=== PATIENT | female | born 1955 | race Caucasian/White ===

== ENCOUNTER 2018-11-08 01:20 | Inpatient (IN) | payer OTHER, MEDICARE ==
[~2018-11-08] VITALS: Ht 167.6 cm; Wt 106.6 kg
[2018-11-08] VITALS (8 sets, daily range): BP systolic 94–188; BP diastolic 45–85
--- NOTE | 2018-11-08 01:20 | NUR ---
BIBA FOR C/O ABD PAIN X 3 DAYS WITH PAIN 8/10 AND ABD DISTENTION WITH N/V. PT HAS AVELAR CATH IN PLACE UPON ARRIVAL TO ED WITH NO OUTPUT. PT ALSO HAD COLOSTOMY BAG. RT CHEST DOUBLE LUMEN PICC LINE. LABS DRAWN FROM RED LUMEN. NO BLOOD RETURN NOTED FROM PURPLE LUMEN. REDNESS NOTED TO COCCYX UPON ARRIVAL TO ED, DRESSING IN PLACE. ORAL TEMP 102. 8 AND RECTAL TEMP 101.4. LUNGS CLEAR BILAT, SATS 90%, PT PLACED ON 2 LITERS OXYGEN.
--- NOTE | 2018-11-08 01:20 | NUR ---
PT ABHISHEK BLS. TAKEN TO BED 10
[2018-11-08] MEDS ORDERED: ONDANSETRON 4 MG/2 ML VIAL IVP ONE (01:30)
[2018-11-08] MEDS ORDERED: NACL 0.9% 2,000 ML IV ONE (01:30)
[2018-11-08] MEDS ORDERED: MORPHINE SULFATE 4 MG/ML SYR IVP ONE ×2 (01:30→03:30)
--- NOTE | 2018-11-08 01:45 | NUR ---
# 16 FR Rodriguez catheter with 10 ml utilizing sterile technique. Immediate return of 2 ml yellow urine noted. Bedside drainage bag placed below level of bladder. Pt tolerated procedure well.
[2018-11-08 01:48] LABS: BASOPHILS # (AUTO) 0.1 K/uL (0.00-0.22); BASOPHILS % (AUTO) 0.7 % (0.0-2.0); EOSINOPHILS % (AUTO) 0.2 % (0.0-4.0); HEMATOCRIT 31.9 % (36-48); HEMOGLOBIN 9.7 g/dL (12.0-16.0); LYMPHOCYTES # (AUTO) 1.3 K/uL (2.5-16.5); LYMPHOCYTES % (AUTO) 9.4 % (20.5-51.1); MEAN CORPUSCULAR HEMOGLOBIN 21 pg (27-31); MEAN CORPUSCULAR HGB CONC 30 g/dL (33-37); MEAN CORPUSCULAR VOLUME 70.4 fL (80-94); MONOCYTES # (AUTO) 1.1 K/uL (0.8-1.0); MONOCYTES % (AUTO) 7.8 % (1.7-9.3); NEUTROPHILS # (AUTO) 11.5 K/uL (1.8-7.7); NEUTROPHILS % (AUTO) 81.9 % (42.2-75.2); PLATELET COUNT (AUTO) 328 K/uL (140-450); RED BLOOD CELL COUNT(AUTO) 4.53 MIL/uL (4.20-5.40); RED CELL DISTRIBUTION WIDTH 16.1 % (11.6-13.7)
[2018-11-08 02:02] LABS: ANION GAP 9.4 (8-16); POTASSIUM 3.4 mmol/L (3.5-5.1)
--- NOTE | 2018-11-08 02:04 | NUR ---
PT TAKEN TO CT
[2018-11-08 02:08] LABS: ALBUMIN 3.2 g/dL (3.4-5.0); PROTHROMBIN TIME 10.1 secs (10.8-13.4); TOTAL BILIRUBIN 0.6 mg/dL (0.0-1.0)
--- NOTE | 2018-11-08 02:41 | NUR ---
RESTING COMFORTABLY. NO ACUTE DISTRESS NOTED. VSS.
[2018-11-08] MEDS ORDERED: PIPERACILLIN/TAZOBACTAM 3.375 GM in DEXTROSE 5% 50 ML IV ONE (02:50)
[2018-11-08] MEDS ORDERED: PIPERACILLIN/TAZOBACTAM 3.375 GM VIAL IV ONE (03:07)
[2018-11-08] MEDS ORDERED: ACETAMINOPHEN 325 MG TAB PO PRN (03:30)
[2018-11-08] MEDS ORDERED: NACL 0.9% 1,000 ML IV ONE ×2 (03:30→04:00)
[2018-11-08] MEDS ORDERED: HYDROcodone/APAP 7.5/325 MG 1 TAB PO PRN (03:30)
[2018-11-08] MEDS ORDERED: DOCUSATE SODIUM 100 MG GELCAP PO PRN (03:30)
[2018-11-08] MEDS ORDERED: MORPHINE SULFATE 2 MG/ML SYR IVP PRN (03:30)
[2018-11-08] MEDS ORDERED: MORPHINE SULFATE 4 MG/ML SYR ONE (03:34)
--- NOTE | 2018-11-08 03:40 | NUR ---
# 16 FR NG tube placed to right nare. Placement checked by auscultation of instilled air into stomach and aspiration of gastric contents. Tubing taped in place to prevent dislodging. Patient tolerated well.
--- NOTE | 2018-11-08 03:56 | NUR ---
X-Ray at bedside.
[2018-11-08] MEDS ORDERED: DEXT 5% / NACL 0.9% 500 ML IV SCH (04:00)
[2018-11-08 04:01] LABS: APPEARANCE,URINE CLOUDY (CLEAR); BILIRUBIN,URINE NEGATIVE (NEGATIVE); BLOOD, URINE 2+ (NEGATIVE); COLOR,URINE YELLOW (YELLOW); LEUKOCYTE ESTERASE ,URINE 1+ (NEGATIVE); NITRITE, URINE POSITIVE (NEGATIVE); UGLUCOSE NEGATIVE (NEGATIVE)
[2018-11-08 04:07] LABS: RBC,URINE TOO NUMEROUS TO COUN /HPF (0-5); WBC,URINE TOO MANY TO COUNT /HPF (0-5)
--- NOTE | 2018-11-08 04:09 | NUR ---
PT ARRIVED AT UNIT VIA GURNEY, RECEIVED BEDSIDE REPORT FROM ER NURSE, CENTRAL LINE TO R UPPER CHEST DOUBLE LUMEN, PATENT INTACT, GOOD BLOOD RETURN, PT ON 3LPM O2 VIA NC, NO SOB NOTED, NG TUBE IN PLACE,AVELAR CATH IN PLACE DRAINING YELLOW URINE, COLOSTOMY BAG IN PLACE DRAINING LIGHT BROWN LIQUID FECES, V/S TAKEN BP 188/85 HR 143, NOTIFIED DR. GAMING REGARDING PT BP, STATED UNDERSTANDING AND WILL ORDER MEDICATION, MRSA SWAB TAKEN, INITIAL ASSESSMENT DONE, ALL SAFETY PRECAUTION MET, CALL LIGHT WITHIN REACH, WILL CONTINUE TO MONITOR.
[2018-11-08] MEDS ORDERED: DEXT31GE2 PO (04:13)
[2018-11-08] MEDS ORDERED: OXCA150T2 PO (04:13)
[2018-11-08] MEDS ORDERED: D50SYR IV (04:13)
[2018-11-08] MEDS ORDERED: LURA80TA PO (04:13)
[2018-11-08] MEDS ORDERED: GABA400C PO (04:13)
[2018-11-08] MEDS ORDERED: ALBU3SOL83 IH (04:13)
[2018-11-08] MEDS ORDERED: GLU1I IM (04:13)
[2018-11-08] MEDS ORDERED: PUL.5N NEB (04:13)
[2018-11-08] MEDS ORDERED: NA P133N1 RC (04:13)
[2018-11-08] MEDS ORDERED: BISA-213 RC (04:13)
[2018-11-08] MEDS ORDERED: MSCON15 PO (04:13)
[2018-11-08] MEDS ORDERED: DOCU-299 PO (04:13)
[2018-11-08] MEDS ORDERED: ACET-2619 PO (04:13)
[2018-11-08] MEDS ORDERED: ACET-5636 PO (04:13)
[2018-11-08] MEDS ORDERED: SLIDE SUBQ (04:13)
[2018-11-08] MEDS ORDERED: ASCO500T45 PO (04:13)
[2018-11-08] MEDS ORDERED: LACT25CA PO (04:13)
[2018-11-08] MEDS ORDERED: MAGN400S60 PO (04:13)
[2018-11-08] MEDS ORDERED: CRAN450C PO (04:13)
--- NOTE | 2018-11-08 04:15 | NUR ---
Patient will be admitted to care of DR. STRONG. Admited to MS. Will go to room 111B. Belongings list completed. Report to BRITTANY AUSTIN.
[2018-11-08] MEDS ORDERED: INSULIN LISPRO SLIDING SCALE 100 UNITS/ML VIAL SUBQ PRN (04:20)
[2018-11-08] MEDS ORDERED: MAGNESIUM HYDROXIDE 2400 MG/30 ML UDC PO PRN (04:20)
[2018-11-08] MEDS ORDERED: DEXTROSE 50% 50 ML SYR IVP PRN (04:20)
[2018-11-08] MEDS ORDERED: hydrALAZINE 20 MG/ML VIAL IVP ONE (04:55)
[2018-11-08] MEDS: KETOROLAC 15 MG/ML VIAL IVP PRN ×3 (05:25→21:47)
--- NOTE | 2018-11-08 05:25 | NUR ---
PT C/O PAIN 05/15, PAIN MEDICATION ADMINISTERED, MEDICATION HYDRALAZINE ALSO ADMINISTERED, PT TOLERATED WELL, NO DISTRESS NOTED, CALL LIGHT WITHIN REACH, WILL CONTINUE TO MONITOR.
--- NOTE | 2018-11-08 06:10 | NUR ---
RECHECKED PT BP, 128/56 HR 124, PT RESTING, NO DISTRESS NOTED, CALL LIGHT WITHIN REACH, WILL CONTINUE TO MONITOR.
[2018-11-08] MEDS: BLOOD GLUCOSE MONITORING 1 DEV DEV FS SCH ×4 (06:45→21:46)
[2018-11-08] MEDS ORDERED: LORazepam 2 MG/ML VIAL IVP PRN (06:50)
[2018-11-08] MEDS ORDERED: ACETAMINOPHEN 325 MG SUPP RC PRN (06:55)
--- NOTE | 2018-11-08 07:25 | NUR ---
ENDORSED PT TO DAY SHIFT NURSE FLORA RN FOR CONTINUOUS OF CARE.
--- NOTE | 2018-11-08 07:26 | NUR ---
RECEIVED BEDSIDE REPORT FROM IT TECHNICAL SUPPORT SPECIALIST NURSE. PATIENT IS AWAKE, ALERT AND ORIENTEDX4, BUT HAS MOMENTS OF CONFUSION/FORGETFULNESS. SHE IS BEDBOUND W L SIDE WEAKNESS. HX STROKE. FALL RISK PROTOCOL IN PLACE. SACRAL REDNESS. SKIN IS INTACT. RU CHEST CENTRAL LINE DOUBLE LUMEN, INFUSING D5NS AT 120. CLEAN,DRY AND INTACT. PATIENT IS INCONTINENT. COLOSTOMY BAG AND AVELAR IN PLACE. CLEAN AND PATENT. NO SIGNS OF DISTRESS ON 3L NC. NG TUBE IN PLACE. NO SUCTION AT THIS TIME D/T WAITING FOR CHEST XRAY FOR PLACEMENT. BED IN LOW POSITION. CALL LIGHT WITHIN REACH. NPO AT THIS TIME. SIGNS POSTED
[2018-11-08] MEDS: DEXT 5% /NACL 0.9% 1,000 ML IV SCH ×2 (07:49→16:05)
--- NOTE | 2018-11-08 08:26 | NUR ---
PATIENT HAS BEEN SCREENED AND CATEGORIZED HIGH NUTRITION RISK. PATIENT WILL BE SEEN WITHIN 1-2 DAYS OF ADMISSION. 11/08/18-11/09/[address]
[2018-11-08] MEDS ORDERED: ACETAMINOPHEN 650 MG SUPP RC ONE ×2 (08:40→15:13)
[2018-11-08] MEDS ORDERED: MORPHINE SULFATE 2 MG/ML SYR ONE ×2 (08:46→12:26)
[2018-11-08] MEDS: MORPHINE SULFATE 2 MG/ML SYR IVP SCH ×4 (08:47→19:45)
[2018-11-08] MEDS: levETIRAcetam 500 MG in NACL 0.9% 100 ML IV SCH ×2 (08:49→21:50)
[2018-11-08] MEDS ORDERED: OXcarbazepine 150 MG TAB PO SCH (09:00)
[2018-11-08] MEDS ORDERED: DOCUSATE SODIUM 100 MG GELCAP PO SCH (09:00)
[2018-11-08] MEDS ORDERED: GABAPENTIN 100 MG CAP PO SCH (09:00)
[2018-11-08] MEDS ORDERED: LACTOBACILLUS RHAMNOSUS GG 1 EACH CAP PO SCH (09:00)
[2018-11-08] MEDS: SODIUM PHOSPHATE 118 ML ENEM RC SCH (09:07)
--- NOTE | 2018-11-08 09:27 | NUR ---
ADMINISTERED MEDS. DR BARROS SAID TO GIVE MORPHINE STILL EVEN THOUGH B/P IS 94/45. SHE SAID SHE DOES NOT WANT THE PATIENT TO GO THROUGH WITHDRAWAL BECAUSE SHE IS ON PAIN MEDS AT HOME. WILL CONTINUE TO MONITOR THE PATIENT.
--- NOTE | 2018-11-08 11:30 | NUR ---
COLOSTOMY BAG CHANGED BY WOUND CARE NURSE. PATIENT TOLERATED WELL
--- NOTE | 2018-11-08 11:30 | NUR ---
WOUND CARE EVALUATION NOT: PER DR. BARROS REQUEST SKIN ASSESSMENT DONE. SKIN INTACT NO REDNESS OBSERVED. PER PRIMARY RN FLEET ENEMA WAS GIVEN EARLY PER RECTAL. SMALL AMOUNT OF TARRY COLOR LIQUID STOOL OUT PUT THRU COLOSTOMY. COLOSTOMY TO LLQ ABDOMINAL AREA, RETRACTED STOMA NOTICE, STOMA SIZE 1/2" WITH OPENING TO 3O'CLOCK DIRECTION AND SMALL AMOUNT OF BLEEDING WHILE Q-TIP INSERTED ABOUT 0.5CM TO THE STOMA OPENING AREA. SIMRAN STOMA SKIN IRRITATION NOTICE REDNESS. 2PIECE COLOSTOMY BAG CHANGED,PT TOLERATE PROCEDURES WELL. RECOMMENDATION -SURGEON TO CONSULT -COLOSTOMY CARE PER PROTOCOL AND DURING CARE PLEASE FOLLOW SKIN CARE INSTRUCTION BELOW: -APPLY SKIN PREP TO SIMRAN-OSTOMY SKIN -USE AN ANGELA SEAL AROUND OSTOMY, STOMA 1/2 ", USE 2- PIECES OSTOMY DEVICES, APPLY WAFER TO OSTOMY AND ATTACHED POUCH TO WAFER., CHANGE WAFER WEEKLY. EMPTY AND RINSE POUCH WHEN IT IS 2/3 FULL. PRIMARY RN NOTIFY ALL ABOVE INFORMATION.
[2018-11-08] MEDS ORDERED: KCL 20 MEQ/WATER INJ PREMIX 200 ML IV SCH (12:00)
[2018-11-08] MEDS ORDERED: KCL 20 MEQ/WATER INJ PREMIX 100 ML IV ONE (12:28)
[2018-11-08] MEDS ORDERED: KETOROLAC 15 MG/ML VIAL ONE (12:30)
--- NOTE | 2018-11-08 12:32 | NUR ---
ADMINISTERED MEDS. DR BARROS SAID IF FEVER GOES BACK UP TO GIVE TORADOL. TORADOL GIVEN. PATIENT TOLERATED WELL.
--- NOTE | 2018-11-08 14:17 | NUR ---
11/08/18 RD INITIAL ASSESSMENT COMPLETED PLEASE REFER TO NUTRITION ASSESSMENT UNDER CARE ACTIVITY FOR ESTIMATED NUTRITIONAL NEEDS. 1. IF NPO CONDITION RESOLVED PER [facility] PROVIDED DIABETES EDUCATION MATERIAL 3. RD TO FOLLOW-UP 2-3 DAYS, HIGH RISK ABDIRASHID MACK RD
--- NOTE | 2018-11-08 14:33 | NUR ---
PATIENT DOES NOT BELIEVE I GAVE HER THE MORPHINE JESSICA AND THE TORADOL. SHE WANTS TO TALK TO THE DOCTOR. DR BARROS CAME IN TO TALK TO PATIENT AND PATIENT APOLOGIZED TO ME, SHE SAID SHE DOES NOT REMEMBER GETTING IT. I TOLD HER IT WAS OK, NO PROBLEM
[2018-11-08] MEDS: metroNIDAZOLE 500 MG/NS PREMIX 100 ML IV SCH ×2 (14:46→21:49)
[2018-11-08] MEDS ORDERED: metroNIDAZOLE 500 MG/NS PREMIX 100 ML IV ONE (14:53)
[2018-11-08] MEDS: ACETAMINOPHEN 650 MG SUPP RC PRN ×2 (15:07→22:16)
--- NOTE | 2018-11-08 15:14 | NUR ---
PATIENT HAS A FEVER 101. CHILLS. GAVE PATIENT PRN SUPP TYLENOL. PATIENT TOLERATED WELL. BLANKETS REMOVED FROM PATIENT
[2018-11-08] MEDS: ONDANSETRON 4 MG/2 ML VIAL IM/IVP PRN (16:36)
--- NOTE | 2018-11-08 16:38 | NUR ---
ADMINISTERED PRN NAUSEA MED. DR BARROS AWARE OF FEVER 101.[address] COOLING MEASURES. ICE PACKS PLACED ON PATIENT. NO BLANKETS. ROOM TEMP COOLER
[2018-11-08 17:12] LABS: CHOL/HDL RATIO 3.7 (1-4.5); MAGNESIUM 1.9 mg/dL (1.8-2.4); PHOSPHORUS 3.8 mg/dL (2.5-4.9); THYROID STIMULATING HORMONE 4.85 uIU/mL (0.34-3.74)
--- NOTE | 2018-11-08 17:30 | NUR ---
HAD TO CHANGE COLOSTOMY BAG TWO TIMES. BOTH BAGS EXPLODED AND NEW BAG NEEDED. PATIENT CLEANED UP
--- NOTE | 2018-11-08 18:45 | NUR ---
TEMP IS 99.9
--- NOTE | 2018-11-08 19:10 | NUR ---
GAVE BEDSIDE REPORT TO BELL STAFF NURSE. PATIENT ENDORSED IN STABLE CONDITION
--- NOTE | 2018-11-08 19:11 | NUR ---
RECEIVED BEDSIDE REPORT FROM DAY SHIFT NURSE FLORA RN, PT STABLE, NO DISTRESS NOTED, CENTRAL LINE DOUBLE LUMEN TO THE R UPPER CHEST, PATENT, INTACT, INFUSING D5NS @ 120ML/HR, INFUSING WELL, PT ON 3LPM O2 VIA NC, NG TUBE IN PLACE, POSITIVE PLACEMENT, OSTOMY BAG IN PLACE DRAINING BROWN LIQUID STOOL, AVELAR CATH IN PLACE DRAINING YELLOW URINE, PT STATED HAVING PAIN 9/10, WILL MEDICATE WITH SCHEDULED PAIN MEDICATION. INITIAL ASSESSMENT DONE, ALL SAFETY PRECAUTION MET, CALL LIGHT WITHIN REACH, WILL CONTINUE TO MONITOR.
--- NOTE | 2018-11-08 20:09 | NUR ---
PATIENT STATED SHE DOES NOT WANT TO DO INCENTIVE SPIROMETER
--- NOTE | 2018-11-08 20:10 | NUR ---
PT CURRENT TEMP 100.1, COOLING MEASURES IN PLACE, WILL CONTINUE TO MONITOR.
--- NOTE | 2018-11-08 21:47 | NUR ---
PT STATED PAIN IS COMING BACK 04/14, PAIN MEDICATION TORADOL ADMINISTERED, PT TOLERATED WELL, NO DISTRESS NOTED, CALL LIGHT WITHIN REACH, WILL CONTINUE TO MONITOR.
--- NOTE | 2018-11-08 21:50 | NUR ---
DUE MEDICATION ADMINISTERED, PT TOLERATED WELL, NO DISTRESS NOTED, CALL LIGHT WITHIN REACH, WILL CONTINUE TO MONITOR.
--- NOTE | 2018-11-08 22:16 | NUR ---
PT TEMPERATURE CURRENTLY 101.4, TYLENOL SUPPOSITORY ADMINISTERED, PT TOLERATED WELL, WILL CONTINUE TO MONITOR TEMPERATURE.
--- NOTE | 2018-11-08 23:10 | NUR ---
CHECKED PT TEMPERATURE 99.7, WILL CONTINUE TO MONITOR AND ADMINISTER COOLING MEASURES. PT RESTING, NO DISTRESS NOTED, CALL LIGHT WITHIN REACH, WILL CONTINUE TO MONITOR.
[2018-11-09] VITALS: BP 104/53
[2018-11-09] MEDS: MORPHINE SULFATE 2 MG/ML SYR IVP SCH ×6 (00:33→16:14)
--- NOTE | 2018-11-09 00:33 | NUR ---
CHECKED ON PT, DUE MEDICATION ADMINISTERED, V/S CHECKED, WITHIN PT BASELINE, CALL LIGHT WITHIN REACH, WILL CONTINUE TO MONITOR.
--- NOTE | 2018-11-09 03:42 | NUR ---
CHECKED ON PT, V/S TAKEN, WITHIN PT BASELINE, MEDICATION ADMINISTERED, PT TOLERATED WELL, NO DISTRESS NOTED, CALL LIGHT WITHIN REACH, WILL CONTINUE TO MONITOR.
[2018-11-09] MEDS: DEXT 5% /NACL 0.9% 1,000 ML IV SCH (03:49)
[2018-11-09 04:00] VITALS: BP 117/42
[2018-11-09] MEDS: ONDANSETRON 4 MG/2 ML VIAL IM/IVP PRN ×2 (04:11→21:21)
--- NOTE | 2018-11-09 04:11 | NUR ---
PT C/O NAUSEA, MEDICATION ADMINISTERED, PT TOLERATED WELL, NO DISTRESS NOTED, CALL LIGHT WITHIN REACH, WILL CONTINUE TO MONITOR.
[2018-11-09] MEDS: metroNIDAZOLE 500 MG/NS PREMIX 100 ML IV SCH ×3 (05:21→21:30)
[2018-11-09] MEDS: BLOOD GLUCOSE MONITORING 1 DEV DEV FS SCH ×4 (05:29→21:20)
[2018-11-09] MEDS: KETOROLAC 15 MG/ML VIAL IVP PRN ×3 (05:44→23:45)
--- NOTE | 2018-11-09 06:54 | NUR ---
MORPHINE ORDERED GIVEN, PT BP 108/50 HR 103, PT RESTING, NO DISTRESS NOTED, CALL LIGHT WITHIN REACH, WILL CONTINUE TO MONITOR.
[2018-11-09 06:56] LABS: BASOPHILS % (AUTO) 0.5 % (0.0-2.0); EOSINOPHILS % (AUTO) 0.3 % (0.0-4.0); HEMATOCRIT 26.2 % (36-48); HEMOGLOBIN 8.2 g/dL (12.0-16.0); LYMPHOCYTES # (AUTO) 0.5 K/uL (2.5-16.5); LYMPHOCYTES % (AUTO) 6.5 % (20.5-51.1); MEAN CORPUSCULAR HEMOGLOBIN 22 pg (27-31); MEAN CORPUSCULAR HGB CONC 31 g/dL (33-37); MONOCYTES # (AUTO) 0.9 K/uL (0.8-1.0); MONOCYTES % (AUTO) 11.1 % (1.7-9.3); NEUTROPHILS # (AUTO) 6.4 K/uL (1.8-7.7); NEUTROPHILS % (AUTO) 81.6 % (42.2-75.2); PLATELET COUNT (AUTO) 224 K/uL (140-450); RED BLOOD CELL COUNT(AUTO) 3.69 MIL/uL (4.20-5.40); WHITE BLOOD COUNT (AUTO) 7.9 K/uL (4.8-10.8)
[2018-11-09 07:25] LABS: FOLIC ACID > 20.00 ng/mL (>3.0); TRANSFERRIN 242 mg/dL (200-370)
--- NOTE | 2018-11-09 07:30 | NUR ---
ENDORSED PT TO DAY SHIFT NURSE NILSA SOTO, PT STABLE, NO DISTRESS NOTED, CALL LIGHT WITHIN REACH.
--- NOTE | 2018-11-09 07:31 | NUR ---
RECEIVED REPORT FROM THE MANAGER FOREIGN NURSE. PT IS AWAKE AND ORIENTED. PT IS ON TELE. PT IS ON NC O2 2L. NG IN PLACE. PT HAS A CENTRAL LINE ON R CHEST, DOUBLE LUMEN, D5NS AT 120ML INFUSING. PT HAS A AVELAR CATH AND A COLOSTOMY. V/S WITHIN NORMAL RANGE. C/O PAIN IN HER AND ABD AND BACK. SKIN IN INTACT. REDNESS ON COCCYX AND HEELS. WILL CONTINUE TO MONITOR PT.
[2018-11-09 07:39] LABS: MAGNESIUM 1.9 mg/dL (1.8-2.4); PHOSPHORUS 2.6 mg/dL (2.5-4.9)
[2018-11-09 08:00] VITALS: BP 110/46
[2018-11-09 08:10] LABS: ANION GAP 7.7 (8-16); CARBON DIOXIDE 30.3 mmol/L (21-32); CREATININE 0.8 mg/dL (0.6-1.3)
[2018-11-09] MEDS: NACL 0.9% 1,000 ML IV SCH ×2 (08:55→20:40)
[2018-11-09] MEDS: levETIRAcetam 500 MG in NACL 0.9% 100 ML IV SCH (08:56)
--- NOTE | 2018-11-09 09:59 | NUR ---
GAVE MORNING MEDS AND REMOVED NG TUBE. PT TOLERATED WELL. WILL CONTINUE TO MONITOR PT.
--- NOTE | 2018-11-09 11:08 | NUR ---
PT C/O PAIN NOT BEING RESOLVED WITH SCHEDULED MORPHINE. ADMINISTERED TORADOL. WILL REASSESS PT.
[2018-11-09] MEDS ORDERED: OXcarbazepine 150 MG TAB PO SCH (11:10)
[2018-11-09 12:00] VITALS: BP 99/60
[2018-11-09] MEDS ORDERED: KCL 20 MEQ/WATER INJ PREMIX 200 ML IV SCH (12:00)
--- NOTE | 2018-11-09 15:10 | NUR ---
PT C/O FEELING WARM. CHECKED ORAL TEMP 99.9F. STARTED COOLING MEASURES. ICE PACKS UNDER ARMS. TOOK OF BLANKET. WILL CONTINUE TO MONITOR PT.
--- NOTE | 2018-11-09 15:16 | NUR ---
CRITICAL RESULTS. POSITIVE BLOOD CULTURE. GRAM - RODS. NOTIFIED.
[2018-11-09 16:00] VITALS: BP 106/67
--- NOTE | 2018-11-09 16:00 | NUR ---
V/S WITHIN NORMAL RANGE. TEMP 99.4F. COOLING MEASURES EFFECTIVE. PT HAS NO COMPLAINTS AT THIS TIME.
[2018-11-09] MEDS: MORPHINE SULFATE 2 MG/ML SYR IVP PRN (19:23)
--- NOTE | 2018-11-09 19:30 | NUR ---
RECEIVED ENDORSEMENT FROM NILSA SOTO DAYSHIFT NURSE AT BEDSIDE FOR CONTINUITY OF CARE, PT IN STABLE CONDITION.
--- NOTE | 2018-11-09 19:30 | NUR ---
ENDORSED PT TO THE LEARNING AND DEVELOPMENT INTERN NURSE AT BEDSIDE. PT IN STABLE CONDITION.
[2018-11-09 20:00] VITALS: BP 130/55
--- NOTE | 2018-11-09 20:00 | NUR ---
PT IN BED WITH ALL FALLS PRECAUTIONS IN PLACE, AND HOB UP 45%. V/S FOLLOWS T 101.1 P 103 R 20 B/P 130/55 02 100% ON 3 LITERS VIA N/C. CENTRAL LINE ON RIGHT SHOULDER INTACT AND RUNNING N/S AT 80MLS/HR. PT HAS ORDERED FOR TYLENOL SUPPOSITORY, PT DOESN'T WANT TYLENOL TO BE GIVEN VIA SUPPOSITORY. WILL SPEAK TO RESIDENTS TO CHANGE ORDER TO PO TYLENOL.
--- NOTE | 2018-11-09 20:30 | NUR ---
PT OSTOMY BAG WAS CHANGED AND DRAINED 400MLS OF LIQUID BROWN FECES DUE TO BAG LEAKING. NEW OSTOMY BAG PROVIDED. AVELAR CHAT IN PLACE AND DRAINING ADAMARIS YELLOW URINE. CENTRAL LINE INTACT AND FLUIDS OF N/S RUNNING AT 80MLS/HR.
[2018-11-09] MEDS ORDERED: ACETAMINOPHEN 325 MG TAB PO PRN (21:10)
[2018-11-09] MEDS: DOCUSATE SODIUM 100 MG GELCAP PO SCH (21:26)
[2018-11-09] MEDS: OXcarbazepine 150 MG TAB PO SCH (21:27)
[2018-11-09] MEDS: MORPHINE TAB ER 15 MG TABER PO SCH (21:29)
--- NOTE | 2018-11-09 21:30 | NUR ---
PT C/ O PAIN IN ABDOMEN GIVEN SCHEDULED MS CONTIN 15MG EXTENDED RELEASE. PT DID C/O OF FEELING NAUSEA. PT GIVEN DISPOSABLE BAG FOR VOMITING. PT VOMITED X1 200MLS OF BILE LIKE FLUID. PT GIVEN IVP ZOFRAN. WILL MONITOR FOR EFFECT.
--- NOTE | 2018-11-09 23:50 | NUR ---
PT AWAKE AND C/O OF MODERATE PAIN, GIVEN 1 IVP OF TORADOL TO RELIEVE MODERATE PAIN IN ABDOMEN. WILL MONITOR FOR PAIN CONTROL.
[2018-11-09] MEDS ORDERED: PROMETHAZINE 25 MG TAB PO PRN (23:55)
[2018-11-10] VITALS: BP 148/79
--- NOTE | 2018-11-10 00:30 | NUR ---
PT C/O OF VOMITING AGAIN. PT VOMITED OUT ANOTHER 250MLS OF BILE LIKE FLUID. INFORMED DR. ALANIS RESIDENT THAT PT AGAIN VOMITED AND HE GAVE A NEW ORDER FOR PHENERGAN 12.5MG. GIVEN TO PT TO HELP PT STOP VOMITING.
[2018-11-10] MEDS: ONDANSETRON 4 MG/2 ML VIAL IM/IVP PRN ×6 (02:39→20:48)
[2018-11-10] MEDS: MORPHINE SULFATE 2 MG/ML SYR IVP PRN ×4 (02:51→16:47)
--- NOTE | 2018-11-10 03:04 | NUR ---
PT SITTING UP IN BED WITH C/O OF NAUSEA AND SEVERE ABD PAIN. PT GIVEN ZOFRAN IVP REQUESTED. PT SAID THAT SINCE SHE THREW UP HER PAIN PILL CAN SHE HAVE ANOTHER. EXPLAINED TO PT THAT NO PILL WAS FOUND IN VOMITUS, HOWEVER SHE DOES HAVE PRN ORDER FOR MORPHINE WHICH WAS GIVEN UPON REQUEST. WILL MONITOR FOR EFFECT.
--- NOTE | 2018-11-10 03:29 | NUR ---
PT THREW UP ANOTHER 300MLS OF BILE LIKE VOMITUS.
--- NOTE | 2018-11-10 03:32 | NUR ---
DR. ALANIS MADE AWARE OF PT VOMITING . AWAITING NEW ORDERE
[2018-11-10] MEDS ORDERED: METOCLOPRAMIDE 10 MG/2 ML INJ VIAL IVP PRN (03:35)
[2018-11-10 04:00] VITALS: BP 153/93
[2018-11-10] MEDS: metroNIDAZOLE 500 MG/NS PREMIX 100 ML IV SCH ×2 (04:53→12:32)
--- NOTE | 2018-11-10 05:10 | NUR ---
PT IN BED STILL C/O NAUSEA , HOWEVER NO NEW ORDER NOTED REGARDING VOMITING. PT LAST VOMIT WAS 100MLS. V/S FOLLOWS T 97.2 P 111 R 18 B/P 153/93 02 98 ON ROOM AIR.
--- NOTE | 2018-11-10 05:12 | NUR ---
MARRY HUNG ORDERED. PT TURNED AND DRESSING INTACT.
[2018-11-10] MEDS ORDERED: oxyCODONE/APAP 5/325 MG 1 TAB TAB PO PRN (06:00)
[2018-11-10] MEDS ORDERED: DEXT 5% / NACL 0.45% 1,000 ML IV SCH (06:20)
[2018-11-10] MEDS: BLOOD GLUCOSE MONITORING 1 DEV DEV FS SCH ×4 (06:47→21:00)
[2018-11-10] MEDS ORDERED: METOCLOPRAMIDE 10 MG TAB PO SCH (07:30)
--- NOTE | 2018-11-10 07:30 | NUR ---
REPORT GIVEN TO PETER SOTO DAYSHIFT NURSE AT BEDSIDE FOR CONTINUITY OF CARE, PT IN STABLE CONDITION.
--- NOTE | 2018-11-10 07:31 | NUR ---
RECEIVED BEDSIDE REPORT FROM BRITTANY ORTEGA. PATIENT AAOX4. PATIENT ON ROOM AIR, NO DISTRESS NOTED. SKIN INTACT. PATIENT ON TELE MONITOR AND STANDARD PRECAUTIONS. CENTRAL LINE ON R INFUSING NS AT 80. CENTRAL LINE INTACT AND PATENT. PATIENT WITH AVELAR CATHETER AND COLOSTOMY BAG. FALL RISK PROTOCOL IN PLACE. BED IN LOW POSITION, CALL LIGHT WITHIN REACH, SIDE RAILS X2 UP. WILL CONTINUE TO MONITOR.
[2018-11-10 07:51] LABS: BASOPHILS % (AUTO) 0.4 % (0.0-2.0); HEMOGLOBIN 8.9 g/dL (12.0-16.0); LYMPHOCYTES # (AUTO) 1.1 K/uL (2.5-16.5); MEAN CORPUSCULAR HEMOGLOBIN 22 pg (27-31); MEAN CORPUSCULAR HGB CONC 31 g/dL (33-37); MEAN CORPUSCULAR VOLUME 70.9 fL (80-94); MONOCYTES # (AUTO) 0.5 K/uL (0.8-1.0); MONOCYTES % (AUTO) 6.4 % (1.7-9.3); NEUTROPHILS # (AUTO) 6.6 K/uL (1.8-7.7); NEUTROPHILS % (AUTO) 80.2 % (42.2-75.2); PLATELET COUNT (AUTO) 271 K/uL (140-450); RED BLOOD CELL COUNT(AUTO) 4.09 MIL/uL (4.20-5.40); RED CELL DISTRIBUTION WIDTH 16.4 % (11.6-13.7); WHITE BLOOD COUNT (AUTO) 8.2 K/uL (4.8-10.8)
[2018-11-10 07:59] LABS: CREATININE 0.8 mg/dL (0.6-1.3)
[2018-11-10 08:00] VITALS: BP 162/90
[2018-11-10 08:03] LABS: MAGNESIUM 1.9 mg/dL (1.8-2.4); PHOSPHORUS 2.7 mg/dL (2.5-4.9)
[2018-11-10] MEDS: MORPHINE TAB ER 15 MG TABER PO SCH ×2 (08:08→20:46)
[2018-11-10] MEDS: FERROUS SULFATE 325 MG TABEC PO SCH (08:09)
[2018-11-10] MEDS: ASCORBIC ACID 500 MG TAB PO SCH (08:10)
[2018-11-10] MEDS: OXcarbazepine 150 MG TAB PO SCH ×2 (08:11→20:46)
[2018-11-10] MEDS: DOCUSATE SODIUM 100 MG GELCAP PO SCH ×2 (08:11→20:46)
[2018-11-10] MEDS: LACTOBACILLUS RHAMNOSUS GG 1 EACH CAP PO SCH (08:11)
--- NOTE | 2018-11-10 08:30 | NUR ---
P.T. NOTES PATIENT REFUSED TO GET UP AND ATTEMPT TO WALK DUE TO COMPLAINTS OF NOT FEELING WELL AND WAS THROWING UP WHEN SEEN. HER NURSE CURLY WAS MADE AWARE OF HER REFUSAL. PLAN: WE'LL FOLLOW UP AGAIN ON NEXT P.T. SCHEDULE IF SHE REMAINS IN THIS HOSPITAL.
[2018-11-10] MEDS: SODIUM PHOSPHATE 118 ML ENEM RC SCH (09:00)
--- NOTE | 2018-11-10 09:30 | NUR ---
ADMINISTERED SCHEDULED MEDS. PATIENT TOLERATED WELL. WILL CONTINUE TO MONITOR.
[2018-11-10] MEDS: NACL 0.9% 1,000 ML IV SCH ×2 (09:41→22:07)
[2018-11-10] MEDS ORDERED: POTASSIUM CHLORIDE 40 MEQ, LIDOCAINE 1% 25 MG in NACL 0.9% 250 ML IV SCH (11:00)
[2018-11-10] MEDS ORDERED: SIMETHICONE 80 MG TAB.CHEW PO PRN (11:35)
[2018-11-10 12:00] VITALS: BP 152/87
--- NOTE | 2018-11-10 12:22 | NUR ---
CALLED [facility] AND SPOKE WITH KADE ABOUT TRANSPORT BACK TO SNF OVER THE WEEKEND. THEY DO NOT GIVE AUTH UNTIL DISCHARGE DATE. SHE SAID TO CALL OVER THE WEEKEND, FOR AUTH. SHE ALSO SAID THAT IF PATIENT HAS MEDICARE PART B, TRANSPORT SHOULD GO THROUGH MEDICARE PART B.
[2018-11-10] MEDS: METOCLOPRAMIDE 10 MG/2 ML INJ VIAL IVP SCH ×2 (12:32→18:30)
[2018-11-10] MEDS: GABAPENTIN 600 MG, GABAPENTIN 200 MG PO SCH ×4 (13:00→16:48)
[2018-11-10] MEDS ORDERED: GABAPENTIN 100 MG CAP PO SCH (13:00)
--- NOTE | 2018-11-10 13:00 | NUR ---
CENTRAL LINE REMOVED. PATIENT IN STABLE CONDITION. WILL CONTINUE TO MONITOR.
--- NOTE | 2018-11-10 14:41 | NUR ---
ADMINISTERED ZOFRAN PRN FOR N/V. PATIENT TOLERATED WELL. WILL CONTINUE TO MONITOR.
[2018-11-10 16:00] VITALS: BP 156/79
--- NOTE | 2018-11-10 17:24 | NUR ---
FAXED INFORMATION TO [facility] [phone].
--- NOTE | 2018-11-10 18:41 | NUR ---
ADMINISTERED SCHEDULED MEDS. PATIENT TOLERATED WELL. WILL CONTINUE TO MONITOR.
--- NOTE | 2018-11-10 19:05 | NUR ---
RECEIVED REPORT FROM JOCELYN SOTO DAYSHIFT NURSE AT BEDSIDE FOR CONTINUITY OF CARE, PT IN STABLE CONDITION.
--- NOTE | 2018-11-10 19:05 | NUR ---
GAVE BEDSIDE REPORT TO BRITTANY ORTEGA. PATIENT ENDORSED IN STABLE CONDITION.
[2018-11-10 20:00] VITALS: BP 151/90
--- NOTE | 2018-11-10 20:00 | NUR ---
PT IN BED WITH ALL FALLS PRECAUTIONS IN PLACE. IV SITE ON RAC 22G WITH N/S RUNNING AT 80MLS/HR. IV SITE FLUSHED PATENT. V/S FOLLOWS T 98.4 P 109 R 18 B/P 151/90 02 98% ON 3LITERS VIA N/C. AVELAR CATHETER INTACT AND DRAINING YELLOW CLEAR URINE. COLOSTOMY BAG INTACT WITH NO DRAINAGE AROUND STOMA. FECAL BAG INTACT AND DRAINING LIQUID BROWN STOOL. PT SAID THAT SHE DID HAVE 6/10 PAIN. PT HAS SCHEDULED MORPHINE TO BE GIVEN. PT HAS CALL FLORES IN REACH.
--- NOTE | 2018-11-10 20:30 | NUR ---
PT GIVEN ROUTINE MEDS INCLUDING MS CONTIN 15MG EXTENDED RELEASE FOR PAIN. PT GIVEN IV MERREM, COLACE, TRILEPTAL, WELL HEPARIN. PT F/S IS 125. PT REQUESTED ZOFRAN FOR NAUSEA. ZOFRAN GIVEN BEFORE THE PILLS TO HELP HER KEEP DOWN HER MEDICATION. WILL CONTINUE TO MONITOR FOR PAIN AND NAUSEA.
[2018-11-10] MEDS: MEROPENEM 1,000 MG in NACL 0.9% 100 ML IV SCH (20:32)
--- NOTE | 2018-11-10 21:30 | NUR ---
NO ADVERSE EFFECTS OF MERREM . ALL REQUESTED NEEDS MET BY STAFF. ALL FALLLS AND SEIZURE PRECAUTIONS IN PLACE.
[2018-11-11] VITALS: BP 159/92
[2018-11-11] MEDS: METOCLOPRAMIDE 10 MG/2 ML INJ VIAL IVP SCH ×4 (00:28→17:52)
[2018-11-11] MEDS: MORPHINE SULFATE 2 MG/ML SYR IVP PRN ×4 (00:34→16:13)
--- NOTE | 2018-11-11 00:45 | NUR ---
PT IN BED, SHE WAS TURNED AND REPOSITIONED. PT C/O SEVER PAIN IN ABDOMEN AND LEFT LEG. PT GIVEN IVP MORPHINE. V/S FOLLOWS T 98.6 P 112 R 18 B/P 159/92 02 99% WITH 3LITES VIA N/C. REGLAN IVP GIVEN ORDERED. WILL CONTINUE TO MONITOR FOR VOMITING AND PAIN.
--- NOTE | 2018-11-11 02:30 | NUR ---
SPOKE WITH PRIMARY RESIDENT DR. NAVA REGARDING PT LAST B/P READING. 162/92. DTR. MIGNON ORDERED X1 APRESOLINE .5MG IVP. WILL ADMINISTER AND RECHECK B/P
[2018-11-11] MEDS: ONDANSETRON 4 MG/2 ML VIAL IM/IVP PRN ×3 (02:58→14:38)
[2018-11-11] MEDS ORDERED: hydrALAZINE 20 MG/ML VIAL IVP ONE (03:15)
[2018-11-11 04:00] VITALS: BP 162/96
--- NOTE | 2018-11-11 04:30 | NUR ---
B/P WENT DOWN TO 155/93. WILL ENDORSE TO NEXT SHIFT TO MONITOR B/P. OTHER V/S ARE T 98.4 P 107 02 98% 0N 3LITERS. PT GIVEN REQUESTED MORPHINE IVP.
[2018-11-11] MEDS: MEROPENEM 1,000 MG in NACL 0.9% 100 ML IV SCH ×2 (04:40→12:17)
--- NOTE | 2018-11-11 06:00 | NUR ---
GIVEN MERREM IVP ORDERED AND REGALAN. IVP ORDERED. F/S IS 117 NO COVERAGE NEEDED.
--- NOTE | 2018-11-11 06:30 | NUR ---
X-RAYS OF ABD X2 VIEWS.
[2018-11-11] MEDS: BLOOD GLUCOSE MONITORING 1 DEV DEV FS SCH ×3 (06:33→16:35)
--- NOTE | 2018-11-11 07:20 | NUR ---
REPORT GIVEN TO TRAMAINE RN DAYSHIFT NURSE AT BEDSIDE FOR CONTINUITY OF CARE, PT IN STABLE CONDITION.
--- NOTE | 2018-11-11 07:21 | NUR ---
Received report from nurse Marie. Pt in high fowlers in bed, awake, FLACC 0. Call light within reach. Addendum: 11/11/18 at 0747 by Lynn Gold RN Clarification: Received report from nurse Leslie.
[2018-11-11 07:24] LABS: BASOPHILS % (AUTO) 0.3 % (0.0-2.0); EOSINOPHILS % (AUTO) 0.1 % (0.0-4.0); HEMATOCRIT 29.7 % (36-48); HEMOGLOBIN 8.9 g/dL (12.0-16.0); LYMPHOCYTES # (AUTO) 2.9 K/uL (2.5-16.5); LYMPHOCYTES % (AUTO) 21.9 % (20.5-51.1); MEAN CORPUSCULAR HEMOGLOBIN 22 pg (27-31); MEAN CORPUSCULAR HGB CONC 30 g/dL (33-37); MEAN CORPUSCULAR VOLUME 71.7 fL (80-94); MONOCYTES % (AUTO) 7.9 % (1.7-9.3); NEUTROPHILS # (AUTO) 9.2 K/uL (1.8-7.7); NEUTROPHILS % (AUTO) 69.8 % (42.2-75.2); PLATELET COUNT (AUTO) 342 K/uL (140-450); RED BLOOD CELL COUNT(AUTO) 4.14 MIL/uL (4.20-5.40); RED CELL DISTRIBUTION WIDTH 16.3 % (11.6-13.7); WHITE BLOOD COUNT (AUTO) 13.1 K/uL (4.8-10.8)
[2018-11-11 08:00] VITALS: BP 166/90
[2018-11-11 08:01] LABS: MAGNESIUM 1.9 mg/dL (1.8-2.4); PHOSPHORUS 2.9 mg/dL (2.5-4.9)
[2018-11-11 08:23] LABS: ANION GAP 13.3 (8-16); CARBON DIOXIDE 29.1 mmol/L (21-32); CREATININE 0.7 mg/dL (0.6-1.3); POTASSIUM 3.4 mmol/L (3.5-5.1)
[2018-11-11] MEDS ORDERED: LIDOCAINE VISCOUS 2% 20 ML UDC PO SCH (08:50)
[2018-11-11] MEDS ORDERED: DICYCLOMINE HCL LIQUID 10 MG/5 ML UDC PO SCH (08:50)
[2018-11-11] MEDS ORDERED: ALUMINUM HYD/MAG/SIMETHICONE 30 ML UDC PO SCH (08:50)
[2018-11-11] MEDS: SIMETHICONE 80 MG TAB.CHEW PO SCH ×3 (08:51→16:12)
[2018-11-11] MEDS: LACTOBACILLUS RHAMNOSUS GG 1 EACH CAP PO SCH (08:51)
[2018-11-11] MEDS: ASCORBIC ACID 500 MG TAB PO SCH (08:52)
[2018-11-11] MEDS: FERROUS SULFATE 325 MG TABEC PO SCH (08:52)
[2018-11-11] MEDS: OXcarbazepine 150 MG TAB PO SCH (08:52)
[2018-11-11] MEDS: MORPHINE TAB ER 15 MG TABER PO SCH (08:52)
[2018-11-11] MEDS: DOCUSATE SODIUM 100 MG GELCAP PO SCH (08:52)
[2018-11-11] MEDS ORDERED: LURASIDONE HCL 80 MG PO SCH (09:00)
--- NOTE | 2018-11-11 09:00 | NUR ---
Pt c/o nausea, no episode of vomiting. Zofran administered. Ice chips provided for comfort. HOB kept elevated @ 30deg. Emesis bag provided at bedside. Call light within reach.
[2018-11-11] MEDS: GABAPENTIN 600 MG, GABAPENTIN 200 MG PO SCH ×6 (09:02→16:12)
--- NOTE | 2018-11-11 09:30 | NUR ---
Pt states she soiled herself. Noted indwelling cornell cath out with balloon partially inflated. Pt with mod amt yellow urine on her underpad. Pericare provided, underpad changed. No bladder distention present. Pt denies any discomfort, no bleeding noted from urinary meatus. Dr Wagner notified of cornell cath out with good urine output. Per physician, ok to keep cornell out. Pt aware & verbalized understanding.
--- NOTE | 2018-11-11 10:00 | NUR ---
Observed leaking of soft brown stool from colostomy. Colostomy set changed. Redness present to peristoma, skin prep wipe applied. Pt denies any pain to site. Will cont to monitor.
[2018-11-11] MEDS ORDERED: SIME80CT27 PO (10:06)
[2018-11-11] MEDS: NACL 0.9% 1,000 ML IV SCH (10:10)
--- NOTE | 2018-11-11 10:30 | NUR ---
Zofran reassessment: Pt denies any nausea at this time. No episode of vomiting.
[2018-11-11] MEDS ORDERED: POTASSIUM CHLORIDE 10 MEQ TABER PO SCH (10:55)
[2018-11-11 12:00] VITALS: BP_SYST 118; BP_SYST 154; BP_DIAS 101; BP_DIAS 50
[2018-11-11] MEDS ORDERED: hydrALAZINE 20 MG/ML VIAL IVP PRN (13:55)
[2018-11-11] MEDS ORDERED: APAP/BUTAL/CAFF 325/50/40 MG 1 TAB PO PRN (13:55)
[2018-11-11] MEDS ORDERED: LISINOPRIL 10 MG TAB PO SCH (14:19)
--- NOTE | 2018-11-11 14:38 | NUR ---
Zofran admin: Pt c/o nausea. No vomiting episode. Zofran administered. Emesis bag at bedside. Call light within reach.
[2018-11-11] MEDS ORDERED: PROMETHAZINE 25 MG SUPP RC PRN ×2 (15:05→15:35)
[2018-11-11] MEDS ORDERED: MORPHINE SULFATE 2 MG/ML SYR IVP SCH (15:05)
[2018-11-11] MEDS ORDERED: LACT10CA1 PO (15:23)
[2018-11-11] MEDS ORDERED: PHE25S RC (15:23)
[2018-11-11] MEDS ORDERED: MERO1PDS2 IV (15:23)
[2018-11-11 16:00] VITALS: BP 150/91
--- NOTE | 2018-11-11 16:19 | NUR ---
PER DR. WEAVER, DR. VILLANUEVA WANTS PT TO BE ON ISOLATION AT [facility]. CALLED [facility] AND SPOKE WITH FELIBERTO BAGLEY, SHE STATED THAT OF NOW THEY DON'T HAVE ISOLATION ROOM AVAILABLE BUT THEY WILL TRY TO SWITCH ROOMS AND WILL CALL BACK.
--- NOTE | 2018-11-11 18:00 | NUR ---
MITA FROM [facility] CALLED BACK STATED THAT ISOLATION ROOM 32-B WILL BE READY IN AN HOUR. SET UP [facility] TRANSPORTATION, SPOKE WITH RUBY HERNANDEZ [address] HRS. BRITTANY REDD ASSIGNED NOTIFIED. PCS FORM AND FACE SHEET FAXED TO [facility], CONFIRMATION ATTACHED TO PT'S CHART.
--- NOTE | 2018-11-11 18:30 | NUR ---
TELEPHONE REPORT GIVEN TO RUCHI CHARGE NURSE AT [facility].
--- NOTE | 2018-11-11 18:45 | NUR ---
SPOKE TO VINNY (SPOUSE) ON THE PHONE. NOTIFIED OF PT DISCHARGE PLAN TO [facility]. VERBALIZED UNDERSTANDING & AGREE WITH PLAN OF CARE.
--- NOTE | 2018-11-11 19:00 | NUR ---
WRITTEN & VERBAL INSTRUCTIONS PROVIDED TO PT. PT VERBALIZED UNDERSTANDING & AGREE WITH DISCHARGE PLANS.
--- NOTE | 2018-11-11 19:20 | NUR ---
PT DISCHARGED AT THIS TIME TO [facility] [place] WITH [place]EM[place] FROM [facility]. RIGHT AC IV SALINE LOCK IN PLACE & ASYMPTOMATIC. COLOSTOMY CLEAN, DRY, & INTACT. ALL BELONGINGS WITH PT UPON DEPARTURE.
[2018-11-12] MEDS ORDERED: LISINOPRIL 10 MG TAB PO SCH (09:00)
== END 2018-11-11 19:20 | DRG 720 ==
LOC: MED 01:20 → MTU 03:33
PROVIDERS: ADMIT General Practice; ATTEND General Practice
PROC: 0D9670Z Drainage of Stomach with Drainage Device, Via Natural or Artificial Opening (ICD-10-PCS; principal; 2018-11-08)
DX: A41.9 Sepsis, unspecified organism (principal); N17.0 Acute kidney failure with tubular necrosis; D68.59 Other primary thrombophilia; E11.40 Type 2 diabetes mellitus with diabetic neuropathy, unspecified; E44.1 Mild protein-calorie malnutrition; E11.65 Type 2 diabetes mellitus with hyperglycemia; G62.9 Polyneuropathy, unspecified; I48.91 Unspecified atrial fibrillation; E87.1 Hypo-osmolality and hyponatremia; F20.9 Schizophrenia, unspecified; N39.0 Urinary tract infection, site not specified; G40.909 Epilepsy, unspecified, not intractable, without status epilepticus; R31.9 Hematuria, unspecified; K31.9 Disease of stomach and duodenum, unspecified; K94.03 Colostomy malfunction; J44.9 Chronic obstructive pulmonary disease, unspecified; I25.10 Atherosclerotic heart disease of native coronary artery without angina pectoris; M19.90 Unspecified osteoarthritis, unspecified site; E66.9 Obesity, unspecified; D50.9 Iron deficiency anemia, unspecified; J98.11 Atelectasis; E87.6 Hypokalemia; E87.8 Other disorders of electrolyte and fluid balance, not elsewhere classified; K59.09 Other constipation; G89.4 Chronic pain syndrome; E02 Subclinical iodine-deficiency hypothyroidism; R26.9 Unspecified abnormalities of gait and mobility; E86.0 Dehydration; Z68.37 Body mass index [BMI] 37.0-37.9, adult; Z88.1 Allergy status to other antibiotic agents; Z88.8 Allergy status to other drugs, medicaments and biological substances; Z95.5 Presence of coronary angioplasty implant and graft; Z87.891 Personal history of nicotine dependence
CPT/HCPCS: 36415; 43753; 51702; 71045; 74021; 74250; 80048; 80053; 81001; 82150; 82272; 82607; 82746; 82948; 83036; 83540; 83605; 83690; 83735; 83880; 84100; 84439; 84443; 84484; 85025; 85045; 85610; 85730; 86886; 86900; 86901; 87040; 87070; 87081; 87086; 87186; 87804; 93005; 93971; 96361; 96365; 96375; 96376; 97530; 99291; J0360; J0696; J1644; J1815; J1885; J1953; J2001; J2185; J2270; J2405; J2543; J2550; J2765; J3480; J3490; J7030; J7042; J7060; J8597; Q0092; Q0169

== ENCOUNTER 2018-12-03 20:17 | Inpatient (IN) | payer OTHER, MEDICARE ==
[~2018-12-03] VITALS: Ht 157.5 cm; Wt 98.9 kg
[~2018-12-03 20:17] MED LIST: ACET-2619 PO; ACET-5636 PO; ALBU3SOL83 IH; ASCO500T45 PO; BISA-213 RC; CRAN450C PO; D50SYR IV; DEXT31GE2 PO; DOCU-299 PO; GABA400C PO; GLU1I IM; LACT10CA1 PO; LURA80TA PO; MAGN400S60 PO; MERO1PDS2 IV; MSCON15 PO; NA P133N1 RC; OXCA150T2 PO; PHE25S RC; PUL.5N NEB; SIME80CT27 PO; SLIDE SUBQ
--- NOTE | 2018-12-03 20:19 | NUR ---
PATIENT BIB EMS TO ER BED 10.
--- NOTE | 2018-12-03 20:23 | NUR ---
PT TO ED BIBA FROM [facility] FOR C/O ABD PAIN AND DISTENTION X 4 DAYS. OBVIOUS DISTENTION NOTED TO ABD. BOWEL SOUNDS HYPOACTIVE TO ALL QUADRANTS. PT REPORTS PAIN UPON PALPATION TO ABD. PT REPORTS N/V. PT PLACED INTO BED, PENDING MD BAXTER. Addendum: 12/03/18 at 2104 by MEDJENNIFER OSTOMY NOTED. SITE INTACT WITH NO S/S OF INFECTION.
--- NOTE | 2018-12-03 20:45 | NUR ---
#14 FR Urinary catheter inserted utilizing sterile technique. Immediate return of clear, yellow urine noted. Catheter out, tip intact. Urine sample collected and sent to lab. Pt tolerated procedure well.
[2018-12-03] MEDS ORDERED: MORPHINE SULFATE 4 MG/ML SYR IVP ONE (21:05)
[2018-12-03] MEDS ORDERED: ONDANSETRON 4 MG/2 ML VIAL IVP ONE (21:05)
[2018-12-03] MEDS ORDERED: NACL 0.9% 1,000 ML IV ONE (21:05)
[2018-12-03 21:35] LABS: BASOPHILS # (AUTO) 0.1 K/uL (0.00-0.22); BASOPHILS % (AUTO) 1.2 % (0.0-2.0); EOSINOPHILS # (AUTO) 0.2 K/uL (0-0.4); EOSINOPHILS % (AUTO) 2.9 % (0.0-4.0); HEMATOCRIT 33.1 % (36-48); HEMOGLOBIN 10.2 g/dL (12.0-16.0); LYMPHOCYTES # (AUTO) 1.7 K/uL (2.5-16.5); LYMPHOCYTES % (AUTO) 20.7 % (20.5-51.1); MEAN CORPUSCULAR HEMOGLOBIN 21 pg (27-31); MEAN CORPUSCULAR HGB CONC 31 g/dL (33-37); MEAN CORPUSCULAR VOLUME 69.5 fL (80-94); MONOCYTES # (AUTO) 0.6 K/uL (0.8-1.0); MONOCYTES % (AUTO) 6.7 % (1.7-9.3); NEUTROPHILS # (AUTO) 5.6 K/uL (1.8-7.7); NEUTROPHILS % (AUTO) 68.5 % (42.2-75.2); PLATELET COUNT (AUTO) 301 K/uL (140-450); RED BLOOD CELL COUNT(AUTO) 4.76 MIL/uL (4.20-5.40); RED CELL DISTRIBUTION WIDTH 17.7 % (11.6-13.7); WHITE BLOOD COUNT (AUTO) 8.2 K/uL (4.8-10.8)
[2018-12-03 21:38] LABS: APPEARANCE,URINE HAZY (CLEAR); BILIRUBIN,URINE NEGATIVE (NEGATIVE); BLOOD, URINE NEGATIVE (NEGATIVE); COLOR,URINE YELLOW (YELLOW); LEUKOCYTE ESTERASE ,URINE TRACE (NEGATIVE); NITRITE, URINE NEGATIVE (NEGATIVE); UGLUCOSE NEGATIVE (NEGATIVE)
[2018-12-03 21:46] LABS: CREATININE 0.8 mg/dL (0.6-1.3); PROTHROMBIN TIME 9.5 secs (10.8-13.4)
[2018-12-03 21:47] LABS: RBC,URINE 0-5 /HPF (0-5)
[2018-12-03 21:52] LABS: ALBUMIN 3.1 g/dL (3.4-5.0); TOTAL BILIRUBIN 0.3 mg/dL (0.0-1.0)
--- NOTE | 2018-12-03 22:00 | NUR ---
PT TO CT VIA [facility].
--- NOTE | 2018-12-03 22:15 | NUR ---
RETURN FROM CT.
[2018-12-03] MEDS ORDERED: cefTRIAXone 1,000 MG VIAL ONE (22:51)
[2018-12-04] MEDS: NACL 0.9% 1,000 ML IV SCH ×2 (00:23→11:14)
[2018-12-04] MEDS ORDERED: DOCUSATE SODIUM 100 MG GELCAP PO PRN (00:25)
[2018-12-04] MEDS ORDERED: ZOLPIDEM 5 MG TAB PO PRN (00:25)
[2018-12-04] MEDS ORDERED: LORazepam 2 MG/ML VIAL IM/IVP PRN (00:25)
[2018-12-04] MEDS ORDERED: MORPHINE SULFATE 2 MG/ML SYR IVP PRN ×2 (00:25→09:45)
[2018-12-04] MEDS ORDERED: HYDROcodone/APAP 5/325 MG 1 TAB TAB PO PRN (00:25)
[2018-12-04] MEDS ORDERED: ACETAMINOPHEN 325 MG TAB PO PRN ×2 (00:30)
[2018-12-04] MEDS ORDERED: MORPHINE TAB ER 15 MG TABER PO PRN ×2 (00:30→00:44)
[2018-12-04] MEDS ORDERED: PROMETHAZINE 25 MG SUPP RC PRN (00:30)
[2018-12-04] MEDS ORDERED: INSULIN LISPRO SLIDING SCALE 100 UNITS/ML VIAL SUBQ PRN (00:30)
[2018-12-04] MEDS ORDERED: DEXTROSE 50% 50 ML SYR IVP PRN (00:30)
[2018-12-04] MEDS ORDERED: MAGNESIUM HYDROXIDE 2400 MG/30 ML UDC PO PRN (00:30)
--- NOTE | 2018-12-04 00:53 | NUR ---
Patient will be admitted to care of DR STRONG. Admited to TELE. Will go to room 122-B. Belongings list completed. Report to BRITTANY CHAMBERLAIN.
--- NOTE | 2018-12-04 00:55 | NUR ---
RECEIVED FROM ER PER LEMUEL OBESE FEMALE PT. AWAKE AND ALERT. PT. C[facility]. CARE PLANS FOR THE NIGHT DISCUSSED WITH HER. CALL LIGHT WITH IN REACH FOR HELP. PER PT. SHE DOES NOT WALK. CHECKED BACK AND NOTED FOAM PLACED FOR PROTECTION OF SACRAL. WILL RE-CHECK AND TAKE PICTURE OF IT. NGT INSERTED BY CHARGE NURSE. WAITING FOR X-RAY TO CONFIRM PLACEMENT. PT. ABLE TO VERBALIZE NEEDS WELL IN [place]. COLOSTOMY BAG IN PLACE TO LEFT ABDOMEN WITH BROWNISH SOFT BM IN IT. PT. HAS HX. OF ESBL. ON ISOLATION PRECAUTIONS PER PROTOCOL. DIAGNOSIS FOR SBO. PT. ABLE TO CALL OUT FOR NURSES WELL. PLACED IN FRONT OF NURSING STATION FOR EASY VISIBILITY. IVF ACCESS TO RAC# 20 INTACT AND WITH GOOD BLOOD RETURN. TELEMETRY MONITORING.
[2018-12-04 01:26] LABS: PROTHROMBIN TIME 9.9 secs (10.8-13.4)
[2018-12-04] MEDS ORDERED: SIMETHICONE 80 MG TAB.CHEW PO PRN (01:35)
[2018-12-04 01:55] LABS: MAGNESIUM 1.9 mg/dL (1.8-2.4); PHOSPHORUS 4.4 mg/dL (2.5-4.9); THYROID STIMULATING HORMONE 8.18 uIU/mL (0.34-3.74)
[2018-12-04] MEDS ORDERED: DICYCLOMINE HCL LIQUID 20 MG, ALUMINUM HYD/MAG/SIMETHICONE 30 ML, LIDOCAINE VISCOUS 2% ... PO SCH ×3 (02:00)
[2018-12-04] MEDS ORDERED: BISACODYL 10 MG SUPP RC SCH (02:00)
--- NOTE | 2018-12-04 02:00 | NUR ---
PT. STILL AWAKE AND TALKING TO RESIDENT MD. EXPLAINED BY MD NEED FOR NGT AND THAT HE IS CHECKING HER MEDICATIONS FOR PAIN RELIEVER. TELEMETRY MONITORING.
[2018-12-04] MEDS ORDERED: PROMETHAZINE 25 MG/ML VIAL IM PRN (02:05)
[2018-12-04] MEDS ORDERED: HYDROmorphone 1 MG/ML AMP IVP PRN ×2 (02:05→06:45)
[2018-12-04] MEDS ORDERED: ALUMINUM HYD/MAG/SIMETHICONE 30 ML UDC ONE (02:23)
[2018-12-04] MEDS ORDERED: LIDOCAINE VISCOUS 2% 20 ML UDC ONE (02:23)
--- NOTE | 2018-12-04 02:30 | NUR ---
NGT INSERTED BY CHARGE NURSE. CONFIRMED PLACEMENT BY PLACING IN AIR AND HEARD BY CHARGE NURSE, ANOTHER RN AND MYSELF A SWISHING SOUND . WILL WAIT FOR RESULT OF CONFIRMATION OF PLACEMENT BY X - RAY TOO.
[2018-12-04 02:39] VITALS: BP 109/70
[2018-12-04] MEDS ORDERED: ALBUTEROL SULFATE/IPRATROPIU 3 ML SOL IH SCH (04:00)
--- NOTE | 2018-12-04 05:01 | NUR ---
WAITING FOR XR ABD TO CONFIRM NGT PLACEMENT. DYE RANGE FEEDER FOLLOWED UP. " I WILL BE THERE"
[2018-12-04] MEDS: BLOOD GLUCOSE MONITORING 1 DEV DEV FS SCH ×4 (05:41→20:27)
--- NOTE | 2018-12-04 06:12 | NUR ---
PT. AWAKE AT THIS TIME AND HAS NO COMPLAINTS OF ANY PAIN. STATED SHE IS VERY HAPPY AND COMFORTABLE WITH THE PAIN RELIEVER RESIDENT MD GAVE HER. NPO AT THIS TIME. WILL ENDORSE TO AM RN FOR CONTINUITY OF CARE.
--- NOTE | 2018-12-04 06:18 | NUR ---
PT. NGT IN PLACE SEEN IN KUB RESULT. PLACED ON INTERMITTENT SUCTION ORDERED BY RESIDENT MD. NO OUT PUT AT THIS TIME FROM NGT.
[2018-12-04 07:07] LABS: ANION GAP 7.3 (8-16); CARBON DIOXIDE 32.5 mmol/L (21-32); CREATININE 0.8 mg/dL (0.6-1.3); POTASSIUM 3.8 mmol/L (3.5-5.1)
[2018-12-04 07:09] LABS: BASOPHILS % (AUTO) 0.6 % (0.0-2.0); EOSINOPHILS # (AUTO) 0.2 K/uL (0-0.4); EOSINOPHILS % (AUTO) 3.9 % (0.0-4.0); HEMATOCRIT 28.2 % (36-48); HEMOGLOBIN 8.8 g/dL (12.0-16.0); LYMPHOCYTES % (AUTO) 33.2 % (20.5-51.1); MEAN CORPUSCULAR HEMOGLOBIN 22 pg (27-31); MEAN CORPUSCULAR HGB CONC 31 g/dL (33-37); MEAN CORPUSCULAR VOLUME 69.6 fL (80-94); MONOCYTES # (AUTO) 0.6 K/uL (0.8-1.0); MONOCYTES % (AUTO) 9.4 % (1.7-9.3); NEUTROPHILS # (AUTO) 3.2 K/uL (1.8-7.7); NEUTROPHILS % (AUTO) 52.9 % (42.2-75.2); PLATELET COUNT (AUTO) 269 K/uL (140-450); RED BLOOD CELL COUNT(AUTO) 4.06 MIL/uL (4.20-5.40); RED CELL DISTRIBUTION WIDTH 17.3 % (11.6-13.7); WHITE BLOOD COUNT (AUTO) 6.1 K/uL (4.8-10.8)
[2018-12-04 07:16] LABS: CHOL/HDL RATIO 3.6 (1-4.5)
--- NOTE | 2018-12-04 07:20 | NUR ---
Received report from pm nurse Mary. Pt asleep, respirations even & nonlabored, FLACC 0. Call light within reach.
[2018-12-04 08:00] VITALS: BP 126/63
[2018-12-04] MEDS: KETOROLAC 30 MG/ML VIAL IM PRN (08:41)
[2018-12-04] MEDS: ASCORBIC ACID 500 MG TAB PO SCH (08:41)
[2018-12-04] MEDS: OXcarbazepine 150 MG TAB PO SCH ×2 (08:41→20:38)
[2018-12-04] MEDS: GABAPENTIN 200 MG, GABAPENTIN 600 MG PO SCH ×4 (08:42→20:39)
[2018-12-04] MEDS: LACTOBACILLUS RHAMNOSUS GG 1 EACH CAP PO SCH (08:42)
[2018-12-04] MEDS: DOCUSATE SODIUM 100 MG GELCAP PO SCH ×2 (08:42→20:38)
--- NOTE | 2018-12-04 08:42 | NUR ---
NGT in place to right nares. Intermittent gastric suction held at this time for medical field representative. No signs of distress. Call light within reach.
--- NOTE | 2018-12-04 08:45 | NUR ---
PATIENT HAS BEEN SCREENED AND CATEGORIZED HIGH NUTRITION RISK. PATIENT WILL BE SEEN WITHIN 1-2 DAYS OF ADMISSION. 12/04/18-12/05/[address]
[2018-12-04] MEDS: SODIUM PHOSPHATE 118 ML ENEM RC SCH ×2 (09:00→09:31)
[2018-12-04] MEDS ORDERED: GABAPENTIN 100 MG CAP PO SCH (09:00)
--- NOTE | 2018-12-04 09:31 | NUR ---
Fleet enema attempted admin: Small amt soft brown stool present in colostomy bag. Colostomy bag removed, stoma cleansed with NS. Stoma opening too small for enema tip. Unable to insert tip d/t pt c/o discomfort. Enema not administered. New colostomy bag placed. Dr. Wagner notified.
--- NOTE | 2018-12-04 09:42 | NUR ---
Resumed NGT intermittent suction. Pt denies any discomfort at this time. Call light within reach.
--- NOTE | 2018-12-04 09:55 | NUR ---
Dr Wagner with order for hydromorphone 1mg now. Informed physician that prn dose was last given @ 0930. Per physician, do not admin 1000 dose.
[2018-12-04] MEDS ORDERED: HYDROmorphone 1 MG/ML AMP IVP SCH ×2 (10:00→13:00)
[2018-12-04] MEDS: ONDANSETRON 4 MG/2 ML VIAL IM/IVP PRN (10:27)
--- NOTE | 2018-12-04 10:27 | NUR ---
Zofran admin: Pt c/o nausea, no vomiting episode. Zofran administered. HOB kept elevated @ 30deg, emesis bag provided. NGT cont on intermittent suction.
[2018-12-04] MEDS: SODIUM FERRIC GLUCONATE 125 MG in NACL 0.9% 100 ML IV SCH (11:14)
--- NOTE | 2018-12-04 11:27 | NUR ---
Zofran reassessment: Pt asleep at this time, no signs of distress, FLACC 0. Call light within reach. NGT in place to right nares with intermittent suction, min yellowish secretions present.
[2018-12-04] MEDS ORDERED: FERROUS GLUCONATE 324 MG TAB PO SCH (11:30)
[2018-12-04 12:00] VITALS: BP 98/48
[2018-12-04] MEDS: DEXT 5% / NACL 0.45% 1,000 ML IV SCH (12:21)
[2018-12-04 14:00] VITALS: BP 115/59
--- NOTE | 2018-12-04 14:05 | NUR ---
Radioactive dye administered via NGT. NGT clamped for xr small bowel follow-through. Pt HOB remains 30deg. No signs of distress. Call light within reach. Rad techs at bedside. Addendum: 12/04/18 at 1926 by Lynn Gold RN Clarification: radiopaque dye administered, not radioactive.
--- NOTE | 2018-12-04 14:55 | NUR ---
12/04/18 RD INITIAL ASSESSMENT COMPLETED PLEASE REFER TO NUTRITION ASSESSMENT UNDER CARE ACTIVITY FOR ESTIMATED NUTRITIONAL NEEDS. 1. CONTINUE NPO MEDICALLY NECESSARY 2. RECOMMEND ADVANCING TO CLEAR LIQUID DIET WHEN PATIENT IS MORE STABLE 3. EDUCATION ON LOW FIBER DIET WAS PROVIDED 4. RD TO FOLLOW-UP 3-5 DAYS, MODERATE RISK ABDIRASHID MACK RD
[2018-12-04 16:26] LABS: HEMATOCRIT 38.1 % (36-48); HEMOGLOBIN 12.7 g/dL (12.0-16.0); LYMPHOCYTES # (AUTO) 0.6 K/uL (2.5-16.5); MEAN CORPUSCULAR HEMOGLOBIN 29 pg (27-31); MEAN CORPUSCULAR HGB CONC 33 g/dL (33-37); MEAN CORPUSCULAR VOLUME 87.5 fL (80-94); MONOCYTES # (AUTO) 0.3 K/uL (0.8-1.0); MONOCYTES % (AUTO) 4.6 % (1.7-9.3); NEUTROPHILS % (AUTO) 86.4 % (42.2-75.2); PLATELET COUNT (AUTO) 214 K/uL (140-450); RED BLOOD CELL COUNT(AUTO) 4.35 MIL/uL (4.20-5.40); RED CELL DISTRIBUTION WIDTH 13.5 % (11.6-13.7); WHITE BLOOD COUNT (AUTO) 6.9 K/uL (4.8-10.8)
[2018-12-04] MEDS: MORPHINE SULFATE 2 MG/ML SYR IVP PRN (19:19)
--- NOTE | 2018-12-04 19:20 | NUR ---
Report given to pm nurse Mary.
--- NOTE | 2018-12-04 19:21 | NUR ---
RECEIVED BEDSIDE REPORT FROM DAY SHIFT NURSE TRAMAINE RN, PT STABLE, NO DISTRESS NOTED, IV TO R AC 20G PATENT, INTACT, INFUSING D5 1/2 NS @ 60ML/HR, INFUSING WELL, PT ON 2LPM O2 VIA NC, NO SOB, NG TUBE IN PLACE, POSITIVE PLACEMENT, COLOSTOMY BAG IN PLACE, INITIAL ASSESSMENT DONE, ALL SAFETY PRECAUTION MET, CALL LIGHT WITHIN REACH, WILL CONTINUE TO MONITOR.
--- NOTE | 2018-12-04 19:23 | NUR ---
PT TEMP 100.6, TYLENOL PER DR ORDER ADMINISTERED, PT TOLERATED WELL, WILL RECHECK PT TEMP.
[2018-12-04] MEDS ORDERED: MORPHINE SULFATE 2 MG/ML SYR IVP ONE (19:25)
[2018-12-04] MEDS: ACETAMINOPHEN 325 MG TAB PO PRN (19:28)
[2018-12-04 20:00] VITALS: BP 126/64
--- NOTE | 2018-12-04 21:38 | NUR ---
NOTIFIED DR. MEDEL REGARDING PT TEMPERATURE STILL HIGH 101.6, STATED UNDERSTANDING, WILL REVIEW PT MEDICATION AND WILL ORDER MEDICATION, WILL CONTINUE WITH ORDERS AND ADMINISTER COOLING MEASURES.
--- NOTE | 2018-12-04 21:54 | NUR ---
TORADOL PER MD ORDER GIVEN FOR PT FEVER, PT TOLERATED WELL, NO DISTRESS NOTED, CALL LIGHT WITHIN REACH, WILL CONTINUE TO MONITOR.
[2018-12-04] MEDS ORDERED: KETOROLAC 15 MG/ML VIAL IVP SCH (22:00)
--- NOTE | 2018-12-04 22:55 | NUR ---
RECHECKED PT TEMPERATURE 99.3, PT RESTING, NO DISTRESS NOTED, CALL LIGHT WITHIN REACH, WILL CONTINUE TO MONITOR.
[2018-12-05] VITALS: BP 125/66
[2018-12-05] MEDS: MORPHINE SULFATE 2 MG/ML SYR IVP PRN ×5 (00:14→22:31)
--- NOTE | 2018-12-05 00:14 | NUR ---
CHECKED ON PT, V/S TAKEN, WITHIN PT BASELINE, PT C/O PAIN 8/10, PAIN MEDICATION ORDERED ADMINISTERED, PT TOLERATED WELL, NO DISTRESS NOTED, CALL LIGHT WITHIN REACH, WILL CONTINUE TO MONITOR.
[2018-12-05 04:00] VITALS: BP 121/70
--- NOTE | 2018-12-05 04:36 | NUR ---
CHECKED ON PT, V/S TAKEN, WITHIN PT BASELINE, PT C/O PAIN, PAIN MEDICATION ADMINISTERED, NO DISTRESS NOTED, CALL LIGHT WITHIN REACH, WILL CONTINUE TO MONITOR.
[2018-12-05] MEDS: DEXT 5% / NACL 0.45% 1,000 ML IV SCH ×2 (05:15→20:40)
[2018-12-05] MEDS: BLOOD GLUCOSE MONITORING 1 DEV DEV FS SCH ×4 (05:44→21:04)
[2018-12-05 07:04] LABS: BASOPHILS % (AUTO) 0.4 % (0.0-2.0); EOSINOPHILS # (AUTO) 0.2 K/uL (0-0.4); EOSINOPHILS % (AUTO) 2.1 % (0.0-4.0); HEMATOCRIT 31.4 % (36-48); HEMOGLOBIN 9.7 g/dL (12.0-16.0); LYMPHOCYTES # (AUTO) 1.2 K/uL (2.5-16.5); LYMPHOCYTES % (AUTO) 14.3 % (20.5-51.1); MEAN CORPUSCULAR HEMOGLOBIN 22 pg (27-31); MEAN CORPUSCULAR HGB CONC 31 g/dL (33-37); MEAN CORPUSCULAR VOLUME 70.4 fL (80-94); MONOCYTES # (AUTO) 0.5 K/uL (0.8-1.0); MONOCYTES % (AUTO) 5.5 % (1.7-9.3); NEUTROPHILS # (AUTO) 6.8 K/uL (1.8-7.7); NEUTROPHILS % (AUTO) 77.7 % (42.2-75.2); PLATELET COUNT (AUTO) 314 K/uL (140-450); RED BLOOD CELL COUNT(AUTO) 4.45 MIL/uL (4.20-5.40); RED CELL DISTRIBUTION WIDTH 17.8 % (11.6-13.7); WHITE BLOOD COUNT (AUTO) 8.7 K/uL (4.8-10.8)
--- NOTE | 2018-12-05 07:14 | NUR ---
ENDORSED PT TO DAY SHIFT NURSE VISHAL RN, PT STABLE, NO DISTRESS NOTED, CALL LIGHT WITHIN REACH, WILL CONTINUE TO MONITOR.
--- NOTE | 2018-12-05 07:15 | NUR ---
RECEIVED BEDSIDE REPORT FROM BEAUTY CULTURIST APPRENTICE NURSE. PATIENT IS AX2 TO NAME AND PLACE. DENIES PAIN. NO SOB NOTED. ON 2L/MIN VIA NASAL CANNULA. IV ON R AC 20G, PATENT AND INTACT, INFUSING PER MD ORDER. NG TUBE IN PLACE, POSITIVE PLACEMENT AND CONNECTED TO SUCTION. SACRAL REDNESS AND MIDLINE SCAR ON MIDLINE ABDOMINAL REGION NOTED. OTHERWISE, SKIN DRY AND INTACT. INCONTINENT AND COLOSTOMY BAG IN PLACE AND 1/3 FULL. PATIENT IS BEDREST AND UNABLE TO AMBULATE. DISCUSS PLAN OF CARE WITH PATIENT AND PATIENT VERBALIZED UNDERSTANDING. ALL SAFETY MEASURES ARE IN PLACE. INSTRUCTED PATIENT TO USE THE CALL LIGHT FOR ANY ASSISTANCE AND PATIENT ACKNOWLEDGED. BED IN LOW POSITION AND CALL LIGHT WITHIN REACH.
[2018-12-05 08:00] VITALS: BP 126/65
[2018-12-05 08:00] LABS: ALBUMIN 2.8 g/dL (3.4-5.0); CARBON DIOXIDE 29.7 mmol/L (21-32); CREATININE 0.8 mg/dL (0.6-1.3); MAGNESIUM 1.9 mg/dL (1.8-2.4); PHOSPHORUS 4.2 mg/dL (2.5-4.9); POTASSIUM 3.7 mmol/L (3.5-5.1); TOTAL BILIRUBIN 0.4 mg/dL (0.0-1.0)
[2018-12-05] MEDS ORDERED: FERROUS GLUCONATE 324 MG TAB PO SCH (08:00)
[2018-12-05 08:18] LABS: FOLIC ACID 14.1 ng/mL (>3.0)
[2018-12-05] MEDS: ACETAMINOPHEN 325 MG TAB PO PRN (08:27)
--- NOTE | 2018-12-05 08:28 | NUR ---
CHECKED TEMP AND RECEIVED 103.2. NOTIFIED DR GARDNER. ADMINISTERED PRN ACETAMINOPHEN. PATIENT TOLERATED WELL. WILL RECHECK TEMP.
--- NOTE | 2018-12-05 09:31 | NUR ---
RECHECKED TEMP WITH TEMPORAL ARTERY SCAN AND RECEIVED 98.4. PATIENT DENIES SOB AND PAIN. SAFETY MEASURES IN PLACE. CALL LIGHT WITHIN REACH.
--- NOTE | 2018-12-05 10:08 | NUR ---
ASSISTED BUSINESS DEVELOPMENT EXECUTIVE TO CHANGE PATIENT'S SOILED GOWN AND LINEN. CHANGED COLOSTOMY BAG. REPOSITIONED PATIENT INTO COMFORT POSITION AND OFF LOAD PRESSURES AREAS WITH PILLOWS. PATIENT TOLERATED WELL.
[2018-12-05] MEDS: LACTOBACILLUS RHAMNOSUS GG 1 EACH CAP PO SCH (10:17)
[2018-12-05] MEDS: DOCUSATE SODIUM 100 MG GELCAP PO SCH ×2 (10:18→20:47)
[2018-12-05] MEDS: GABAPENTIN 200 MG, GABAPENTIN 600 MG PO SCH ×4 (10:18→21:03)
[2018-12-05] MEDS: ASCORBIC ACID 500 MG TAB PO SCH (10:18)
[2018-12-05] MEDS: OXcarbazepine 150 MG TAB PO SCH ×2 (10:18→20:47)
[2018-12-05] MEDS: KETOROLAC 30 MG/ML VIAL IM PRN (10:45)
--- NOTE | 2018-12-05 10:50 | NUR ---
PATIENT C/O PAIN LEVEL OF 6 ON HER ABDOMINAL AREA. CHECKED VITAL SIGNS, BP 101/52, PULSE 103, SPO2 99% ON 3L NC, RR 20. ADMINISTERED PRN PAIN MED. PATIENT IS RESTING ON BED.
[2018-12-05] MEDS ORDERED: AMPICILLIN/SULBACTAM 1.5 GM in NACL 0.9% 50 ML IV SCH (11:00)
--- NOTE | 2018-12-05 11:03 | NUR ---
COLLECTED OCCULT BLOOD VIA OSTOMY BAG AND DELIVERED TO LAB.
[2018-12-05] MEDS: SODIUM FERRIC GLUCONATE 125 MG in NACL 0.9% 100 ML IV SCH (11:24)
[2018-12-05 12:00] VITALS: BP 115/62
--- NOTE | 2018-12-05 13:16 | NUR ---
PATIENT IS RESTING ON BED. NO SIGNS OF DISTRESS NOTED. SAFETY MEASURES ARE IN PLACE. TELE MONITOR ATTACHED.
[2018-12-05] MEDS ORDERED: MORPHINE SULFATE 2 MG/ML SYR IVP PRN (14:00)
--- NOTE | 2018-12-05 14:08 | NUR ---
PATIENT C/O OF PAIN LEVEL OF 10 ON HER ABDOMINAL REGION. ADMINISTERED PRN PAIN MED.
--- NOTE | 2018-12-05 15:41 | NUR ---
PATIENT IS TALKING ON THE PHONE. NO SIGNS OF DISTRESS NOTED. SAFETY MEASURES IN PLACE. CALL LIGHT WITHIN REACH.
[2018-12-05 16:00] VITALS: BP 100/51
--- NOTE | 2018-12-05 18:28 | NUR ---
PT C/ OF PAIN LEVEL 10 ON HER ABDOMINAL AREA. ADMINISTERED PRN PAIN MED. PATIENT TOLERATED WELL.
[2018-12-05] MEDS ORDERED: SODIUM FERRIC GLUCONATE 125 MG in NACL 0.9% 100 ML IV SCH (19:00)
[2018-12-05] MEDS ORDERED: POTASSIUM CHLORIDE 20% 40 MEQ/15 ML UDC GT SCH (19:00)
[2018-12-05] MEDS ORDERED: BOWEL EVACUANT DRINK 4,000 ML PDS PO SCH (19:00)
--- NOTE | 2018-12-05 19:30 | NUR ---
ENDORSED PATIENT TO INSTRUMENTATION FITTER NURSE AT BEDSIDE. PATIENT IS IN A STABLE CONDITION.
--- NOTE | 2018-12-05 19:31 | NUR ---
RECEIVED PT ON BED, AAOX4, VITAL SIGNS STABLE, COMPLAINING OF ABDOMINAL PAIN, MADE AWARE OF NEXT DUE TIME FOR MORPHINE, ON O2 AT 3L NC, NO SOB NOTED, WITH NGT TO RT NARES CLAMPED, COLOSTOMY IN PLACE WITH LIQUID BROWN STOOL WITH SOLID PIECES NOTED, IVF INFUSING WELL, MAINTAINED ON NPO EXCEPT MEDS, WILL REPOSITIONED Q2H AND OFFLOAD PRESSURE AREAS, MAINTAINED ON CONTACT ISOLATION, SAFETY MEASURES IN PLACE, CALL LIGHT WITHIN REACH.
[2018-12-05] MEDS: ONDANSETRON 4 MG/2 ML VIAL IM/IVP PRN (19:49)
[2018-12-05 20:00] VITALS: BP 107/48
[2018-12-05] MEDS: LACTULOSE 20 GM/30 ML UDC PO SCH (20:46)
[2018-12-05] MEDS: SENNA 8.6 MG TAB PO SCH (20:48)
[2018-12-05] MEDS ORDERED: GABAPENTIN 300 MG CAP ONE (20:49)
--- NOTE | 2018-12-05 22:00 | NUR ---
COLOSTOMY EMPTIED WITH 600ML LIQUID STOOL BROWNISH COLOR, NO SOLID PIECES NOTED, NEW COLOSTOMY BAG APPLIED, ANOTHER 300ML GOLYTELY GIVEN THROUGH NGT, TOLERATED WELL, CONTINUE TO REPOSITION AND OFFLOAD PRESSURE AREAS, MONITORED CLOSELY.
--- NOTE | 2018-12-05 22:50 | NUR ---
EGD AND COLONOSCOPY CONSENT SIGNED, COLOSTOMY ATTACHED TO DRAINAGE BAG, MONITORED CLOSELY.
[2018-12-05] MEDS ORDERED: MAGNESIUM CITRATE 300 ML BTL PO SCH (23:00)
--- NOTE | 2018-12-05 23:05 | NUR ---
PT SLEEPING, AROUSABLE TO NAME, VITAL SIGNS STABLE, NO SOB NOTED, LIQUID STOOL WITH LIGHT BROWNISH COLOR WITH MODERATE SEDIMENTS BUT NO SOLID PIECES NOTED, CONTINUE GIVING GOLYTELY TOLERATED, CONTINUE TO MONITOR CLOSELY.
[2018-12-05] MEDS: METOCLOPRAMIDE 10 MG/2 ML INJ VIAL IVP SCH (23:35)
--- NOTE | 2018-12-05 23:44 | NUR ---
DUE REGLAN IVP AND MAG CITRATE GIVEN THRU NGT, TOLERATED WELL, EMPTIED COLOSTOMY WITH 750ML LIGHT BROWNISH STOOL WITH SEDIMENTS NOTED, IVF INFUSING WELL, CONTINUE TO MONITOR CLOSELY.
[2018-12-06] VITALS: BP 111/47
--- NOTE | 2018-12-06 00:56 | NUR ---
BOWEL PREP DONE, NO N/V NOTED, COLOSTOMY EMPTIED WITH 1700ML LIGHT BROWNISH LIQUID STOOL NOTED, MONITORED CLOSELY.
[2018-12-06] MEDS: MORPHINE SULFATE 2 MG/ML SYR IVP PRN ×5 (02:39→20:43)
[2018-12-06] MEDS: DEXT 5% / NACL 0.45% 1,000 ML IV SCH ×2 (02:40→13:20)
--- NOTE | 2018-12-06 02:40 | NUR ---
PT AWAKE COMPLAINING OF PAIN, MEDICATED PRN WITH MORPHINE IVP, EMPTIED COLOSTOMY WITH 1300ML LIGHT BROWNISH STOOL WITH SEDIMENTS, MONITORED CLOSELY.
[2018-12-06 04:00] VITALS: BP 107/53
[2018-12-06] MEDS: ACETAMINOPHEN 325 MG TAB PO PRN (04:21)
--- NOTE | 2018-12-06 04:21 | NUR ---
PT ORAL TEMP-100.4, MEDICATED PRN WITH TYLENOL VIA NGT, INCONTINENT OF URINE, PERINEAL CARE DONE, REPOSITIONED AND OFFLOAD PRESSURE AREAS, EMPTIED COLOSTOMY BAG WITH 500ML LIGHT BROWN LIQUID STOOL WITH SEDIMENTS, MONITORED CLOSELY.
[2018-12-06] MEDS: METOCLOPRAMIDE 10 MG/2 ML INJ VIAL IVP SCH ×3 (05:34→17:11)
--- NOTE | 2018-12-06 05:38 | NUR ---
ORAL TEMP RECHECKED-99.9, BLOOD SUGAR CHECKED WITH 98 RESULT, DUE REGLAN IVP GIVEN, DR MEDEL MADE AWARE OF LIGHT BROWN STOOL WITH SEDIMENTS OUTPUT ON THE COLOSTOMY AND TOTAL STOOL OUTPUT OF 5,000ML THE WHOLE SHIFT, NO NEW ORDER.
--- NOTE | 2018-12-06 06:40 | NUR ---
MEDICATED PRN FOR PAIN WITH MORPHINE IVP, KUB DONE, IVF INFUSING WELL, NGT CLAMPED, MAINTAINED ON NPO EXCEPT MEDS, NO SEIZURE EPISODE THE WHOLE SHIFT, MONITORED CLOSELY.
[2018-12-06] MEDS: BLOOD GLUCOSE MONITORING 1 DEV DEV FS SCH ×4 (06:53→20:44)
--- NOTE | 2018-12-06 07:20 | NUR ---
RECEIVED BEDSIDE REPORT FROM STEVEDORE DOCK NURSE. PATIENT IS AAO X4. NO SOB NOTED. NG TUBE NOTED IN RIGHT PLACE. ON 2L/MIN VIA NASAL CANNULA. IV ON R AC 20G, PATENT, INTACT, AND ASYMMETRIC. BM INCONTINENT AND COLOSTOMY BAG IN PLACE AND ALMOST FULL. TOLD GATE TENDER TO EMPTY AND RECORD THE AMOUNT. PATIENT IS BEDREST AND UNABLE TO AMBULATE. DISCUSS PLAN OF CARE WITH PATIENT AND PATIENT VERBALIZED UNDERSTANDING. ALL SAFETY MEASURES ARE IN PLACE. PLACED CALL LIGHT WITHIN REACH AND INSTRUCTED PATIENT TO USE THE CALL LIGHT FOR ANY ASSISTANCE.
--- NOTE | 2018-12-06 07:22 | NUR ---
PT AWAKE, NO SIGNS OF DISTRESS, BEDSIDE REPORT GIVEN TO BRITTANY CAMPOVERDE FOR CONTINUITY OF CARE.
[2018-12-06 08:00] VITALS: BP 101/47
[2018-12-06] MEDS ORDERED: PANTOPRAZOLE 40 MG INJ VIAL IVP SCH (09:00)
[2018-12-06] MEDS: SENNA 8.6 MG TAB PO SCH ×3 (09:31→20:44)
[2018-12-06] MEDS: DOCUSATE SODIUM 100 MG GELCAP PO SCH ×2 (09:32→20:45)
[2018-12-06] MEDS: GABAPENTIN 200 MG, GABAPENTIN 600 MG PO SCH ×2 (09:32)
[2018-12-06] MEDS: LACTOBACILLUS RHAMNOSUS GG 1 EACH CAP PO SCH (09:32)
[2018-12-06] MEDS: OXcarbazepine 150 MG TAB PO SCH ×2 (09:32→20:45)
[2018-12-06] MEDS: ASCORBIC ACID 500 MG TAB PO SCH (09:33)
[2018-12-06] MEDS: LACTULOSE 20 GM/30 ML UDC PO SCH ×2 (09:33→20:43)
[2018-12-06] MEDS: SODIUM PHOSPHATE 118 ML ENEM RC SCH (10:50)
[2018-12-06] MEDS: SODIUM FERRIC GLUCONATE 125 MG in NACL 0.9% 100 ML IV SCH (11:09)
[2018-12-06 12:00] VITALS: BP 123/65
[2018-12-06 12:01] LABS: BASOPHILS % (AUTO) 0.3 % (0.0-2.0); EOSINOPHILS % (AUTO) 0.5 % (0.0-4.0); HEMATOCRIT 27.6 % (36-48); HEMOGLOBIN 8.9 g/dL (12.0-16.0); LYMPHOCYTES # (AUTO) 1.4 K/uL (2.5-16.5); LYMPHOCYTES % (AUTO) 15.6 % (20.5-51.1); MEAN CORPUSCULAR HEMOGLOBIN 22 pg (27-31); MEAN CORPUSCULAR HGB CONC 32 g/dL (33-37); MEAN CORPUSCULAR VOLUME 69.8 fL (80-94); MONOCYTES # (AUTO) 0.8 K/uL (0.8-1.0); MONOCYTES % (AUTO) 8.6 % (1.7-9.3); NEUTROPHILS # (AUTO) 6.6 K/uL (1.8-7.7); PLATELET COUNT (AUTO) 310 K/uL (140-450); RED BLOOD CELL COUNT(AUTO) 3.95 MIL/uL (4.20-5.40); RED CELL DISTRIBUTION WIDTH 17.6 % (11.6-13.7); WHITE BLOOD COUNT (AUTO) 8.8 K/uL (4.8-10.8)
[2018-12-06 12:33] LABS: PHOSPHORUS 2.8 mg/dL (2.5-4.9)
[2018-12-06 12:47] LABS: ANION GAP 11.9 (8-16); CARBON DIOXIDE 29.6 mmol/L (21-32); CREATININE 0.6 mg/dL (0.6-1.3)
[2018-12-06 13:06] LABS: POTASSIUM 2.5 mmol/L (3.5-5.1)
--- NOTE | 2018-12-06 13:18 | NUR ---
12/06/18 RD FOLLOW UP COMPLETED PLEASE REFER TO NUTRITION ASSESSMENT UNDER CARE ACTIVITY FOR ESTIMATED NUTRITIONAL NEEDS. 1. CONTINUE NPO MEDICALLY APPROPRIATE 2. RECOMMEND CLEAR LIQUID DIET WHEN PT IS STABLE TO RECEIVE NUTRITION 3. RD TO FOLLOW-UP 2-3 DAYS, HIGH RISK ABDIRASHID MACK, RD
[2018-12-06] MEDS ORDERED: POTASSIUM CHLORIDE 10 MEQ TABER PO SCH ×2 (14:00→18:00)
[2018-12-06] MEDS ORDERED: POTASSIUM CHLORIDE 20% 40 MEQ/15 ML UDC GT SCH (14:00)
[2018-12-06] MEDS ORDERED: fentaNYL 0.05 MG/ML VIAL ONE (14:05)
[2018-12-06] MEDS ORDERED: MIDAZOLAM 2 MG/2 ML VIAL ONE ×4 (14:06→14:54)
[2018-12-06] MEDS ORDERED: POTASSIUM CHLORIDE 40 MEQ, LIDOCAINE 1% 25 MG in NACL 0.9% 250 ML IV SCH (14:30)
--- NOTE | 2018-12-06 15:50 | NUR ---
PT CAME BACK FROM OR, COLONOSCOPY. PT'S VITAL SIGN STABLE. RECONNECTED FLUID WITH IV PUMP. REPLACE COLOSTOMY BAG WITH CHUX PAD. PT TOLERATED WELL. PROVIDED APPLE JUICE. Addendum: 12/06/18 at 1808 by Yen Woodward RN PLACED COLOSTOMY BAG AROUND AVELAR CATHETER TO CATCH ADDITIONAL DRAINAGE.
[2018-12-06 16:00] VITALS: BP 130/63
[2018-12-06] MEDS ORDERED: MIDAZOLAM 2 MG/2 ML VIAL IVP ONE (16:50)
[2018-12-06] MEDS ORDERED: fentaNYL 0.05 MG/ML VIAL IVP ONE (16:50)
[2018-12-06 17:23] LABS: ANION GAP 10.8 (8-16); CARBON DIOXIDE 30.7 mmol/L (21-32); CREATININE 0.6 mg/dL (0.6-1.3)
[2018-12-06 17:36] LABS: POTASSIUM 2.5 mmol/L (3.5-5.1)
--- NOTE | 2018-12-06 19:20 | NUR ---
ENDORSED PT TO LIABILITY CLAIMS REPRESENTATIVE RN. AVELAR IN COLOSTOMY SITE DRAINING OK. PT IN STABLE CONDITION.
--- NOTE | 2018-12-06 19:21 | NUR ---
RECEIVED REPORT FROM BRITTANY CAMPOVERDE FOR CONTINUITY OF CARE. PT IS A/OX4 WITH PERIODS OF CONFUSION. ON ROOM AIR. PT IS ABLE TO FOLLOW COMMANDS, ABLE TO MAKE NEEDS KNOWN. PT IS BEDBOUND, AND SKIN IS INTACT. PT HAS A 20G IV TO RIGHT AC, ASYMPTOMATIC AND INTACT. COLOSTOMY BAG IN PLACE, WITH AVELAR STICKING OUT LEFT BY DR GARCIA. NO SIGNS OF DISTRESS NOTED AT THIS TIME. DISCUSSED PLAN OF CARE WITH PT, PT VERBALIZED UNDERSTANDING. PT DENIES PAIN. VITAL SIGNS STABLE. POSITIONED PT FOR COMFORT. BED IN LOWEST POSITION AND CALL LIGHT WITHIN REACH. WILL CONTINUE TO MONITOR.
[2018-12-06 20:00] VITALS: BP 128/61
[2018-12-06] MEDS: AMITRIPTYLINE 25 MG TAB PO SCH (20:44)
[2018-12-06] MEDS: POTASSIUM CHLORIDE 20% 40 MEQ/15 ML UDC GT SCH (20:51)
--- NOTE | 2018-12-06 20:52 | NUR ---
ADMINISTERED SCHEDULED MEDICATIONS AND MORPHINE FOR ABDOMINAL PAIN 05/15. PT TOLERATED WELL. BED IN LOWEST POSITION, CALL LIGHT WITHIN REACH. WILL CONTINUE TO MONITOR.
[2018-12-06 23:20] LABS: ANION GAP 12.8 (8-16); CARBON DIOXIDE 27.1 mmol/L (21-32); CREATININE 0.6 mg/dL (0.6-1.3)
[2018-12-07] VITALS: BP 136/70
--- NOTE | 2018-12-07 | NUR ---
VITAL SIGNS STABLE, DENIES HAVING ANY PAIN. NO SIGNS OF DISTRESS NOTED. POSITIONED PT FOR COMFORT. BED IN LOWEST POSITION AND CALL LIGHT WITHIN REACH. WILL CONTINUE TO MONITOR.
[2018-12-07 00:12] LABS: POTASSIUM 2.9 mmol/L (3.5-5.1)
[2018-12-07] MEDS: METOCLOPRAMIDE 10 MG/2 ML INJ VIAL IVP SCH ×4 (00:34→18:57)
[2018-12-07] MEDS: MORPHINE SULFATE 2 MG/ML SYR IVP PRN ×5 (00:35→20:32)
--- NOTE | 2018-12-07 02:15 | NUR ---
PTT CALLED ME TO ROOM TO TURN ON THE TELEVISION.
[2018-12-07 04:00] VITALS: BP 132/63
--- NOTE | 2018-12-07 05:12 | NUR ---
ADMINISTERED SCHEDULED MEDICATIONS, PT TOLERATED WELL.
[2018-12-07] MEDS: BLOOD GLUCOSE MONITORING 1 DEV DEV FS SCH ×4 (05:51→20:30)
[2018-12-07] MEDS ORDERED: POTASSIUM CHLORIDE 10 MEQ TABER PO ONE (06:10)
[2018-12-07] MEDS ORDERED: POTASSIUM CHLORIDE 40 MEQ, LIDOCAINE MPF 1% - 5 mL VIAL 25 MG in NACL 0.9% 250 ML IV ONE (06:10)
[2018-12-07 06:39] LABS: BASOPHILS % (AUTO) 0.4 % (0.0-2.0); EOSINOPHILS # (AUTO) 0.5 K/uL (0-0.4); EOSINOPHILS % (AUTO) 5.6 % (0.0-4.0); HEMATOCRIT 28.9 % (36-48); LYMPHOCYTES # (AUTO) 1.1 K/uL (2.5-16.5); LYMPHOCYTES % (AUTO) 13.2 % (20.5-51.1); MEAN CORPUSCULAR HEMOGLOBIN 22 pg (27-31); MEAN CORPUSCULAR HGB CONC 31 g/dL (33-37); MEAN CORPUSCULAR VOLUME 70.4 fL (80-94); MONOCYTES # (AUTO) 0.8 K/uL (0.8-1.0); NEUTROPHILS % (AUTO) 71.8 % (42.2-75.2); PLATELET COUNT (AUTO) 318 K/uL (140-450); RED BLOOD CELL COUNT(AUTO) 4.11 MIL/uL (4.20-5.40); WHITE BLOOD COUNT (AUTO) 8.4 K/uL (4.8-10.8)
[2018-12-07 06:54] LABS: ANION GAP 11.2 (8-16); CARBON DIOXIDE 28.6 mmol/L (21-32); CREATININE 0.6 mg/dL (0.6-1.3)
[2018-12-07] MEDS: ALBUTEROL SULFATE/IPRATROPIU 3 ML SOL IH SCH ×2 (07:00→11:00)
[2018-12-07 07:02] LABS: MAGNESIUM 1.9 mg/dL (1.8-2.4); PHOSPHORUS 2.4 mg/dL (2.5-4.9)
[2018-12-07 07:05] LABS: POTASSIUM 2.8 mmol/L (3.5-5.1)
--- NOTE | 2018-12-07 07:15 | NUR ---
CLEANED PT AND REPOSITIONED EMPTIED ANOTHER 300ML OF STOOL.
--- NOTE | 2018-12-07 07:53 | NUR ---
ENDORSED PT TO DAY SHIFT RN WEST FOR CONTINUITY OF CARE. PT IN STABLE CONDITION.
[2018-12-07 08:00] VITALS: BP 114/49
--- NOTE | 2018-12-07 08:00 | NUR ---
RECEIVED BEDSIDE REPORT FROM DELIVERY TRUCK DRIVER RN. PT LYING IN BED, AOX4. RESPIRATIONS EVEN AND UNLABORED. LUNGS CTA. HEART RHYTHM REGULAR. HYPOACTIVE BOWEL SOUNDS. LT ABD COLOSTOMY BAG WITH AVELAR CATH INSERTED INSIDE COLOSTOMY SITE. SKIN OTHERWISE INTACT. IV SITE PATENT AND ASYMPTOMATIC, ON SL. BEDBOUND AND INCONTINENT PER DELIVERY TRUCK DRIVER RN. ALL SAFETY PRECAUTIONS IN PLACE, WILL CONTINUE TO MONITOR.
[2018-12-07] MEDS: LACTULOSE 20 GM/30 ML UDC PO SCH (08:43)
[2018-12-07] MEDS: POTASSIUM CHLORIDE 20% 40 MEQ/15 ML UDC GT SCH ×2 (08:43→20:30)
[2018-12-07] MEDS: OXcarbazepine 150 MG TAB PO SCH ×2 (08:44→20:31)
[2018-12-07] MEDS: SENNA 8.6 MG TAB PO SCH (08:44)
[2018-12-07] MEDS: DOCUSATE SODIUM 100 MG GELCAP PO SCH (08:44)
[2018-12-07] MEDS: LACTOBACILLUS RHAMNOSUS GG 1 EACH CAP PO SCH (08:44)
[2018-12-07] MEDS: ASCORBIC ACID 500 MG TAB PO SCH (08:44)
--- NOTE | 2018-12-07 09:26 | NUR ---
SCHEDULED MEDS GIVEN. PT IN STABLE CONDITION. EMPTIED 200 ML LIQUID BROWN STOOL FROM COLOSTOMY.
--- NOTE | 2018-12-07 10:12 | NUR ---
ADMINISTERED ATIVAN FOR C/O ANXIETY.
[2018-12-07] MEDS ORDERED: LORazepam 1 MG TAB PO SCH (10:36)
--- NOTE | 2018-12-07 10:48 | NUR ---
GAVE DR. GARCIA UPDATED VIA PHONE. NOTIFIED DR. GARCIA THAT PATIENT IS STILL PRODUCING LIQUID BROWN STOOL- 550 ML STILL 0700 TODAY. ALSO NOTIFIED THAT THERE IS SOME LEAKAGE OF STOOL AROUND AVELAR CATH IN OSTOMY SITE. RECEIVED TORB ORDERS.
--- NOTE | 2018-12-07 10:56 | NUR ---
NEWLY SCHEDULED ATIVAN PO NOT ADMINISTERED. PT RECEIVED IV ATIVAN AT 1012.
--- NOTE | 2018-12-07 11:09 | NUR ---
CALLED PHARMACY FOR COMPATIBILITY OF K RIDER WITH AMPICILLIN, AND K RIDER WITH SODIUM FERRIC GLUCONATE. PER PHARMACIST, STOP K RIDER, INFUSE SODIUM FERRIC GLUCONATE ALONE, THEN AMPICILLIN ALONE. AFTER AMPICILLIN COMPLETE, RESTART K RIDER.
--- NOTE | 2018-12-07 11:10 | NUR ---
PT SLEEPING IN BED, NO C/O ANXIETY, ONE HOUR AFTER ATIVAN IVP.
[2018-12-07] MEDS ORDERED: MAGNESIUM CITRATE 300 ML BTL PO SCH (11:30)
[2018-12-07] MEDS: SODIUM FERRIC GLUCONATE 125 MG in NACL 0.9% 100 ML IV SCH (11:32)
--- NOTE | 2018-12-07 11:48 | NUR ---
PATIENT DRANK ALL OF SCHEDULED CITROMA. EMPTIED 200 ML BROWN LIQUID STOOL. STOOL IS OF THINNER CONSISTENCY NOW.
[2018-12-07 12:31] LABS: ANION GAP 12.7 (8-16); CARBON DIOXIDE 26.5 mmol/L (21-32); CREATININE 0.6 mg/dL (0.6-1.3); POTASSIUM 3.2 mmol/L (3.5-5.1)
--- NOTE | 2018-12-07 12:40 | NUR ---
PATIENT TAKEN TO OR.
[2018-12-07] MEDS ORDERED: fentaNYL 0.05 MG/ML VIAL ONE ×2 (12:41→13:48)
[2018-12-07] MEDS ORDERED: diphenhydrAMINE 50 MG/ML VIAL ONE (12:42)
[2018-12-07] MEDS ORDERED: MIDAZOLAM 2 MG/2 ML VIAL ONE ×2 (12:42→13:49)
[2018-12-07] MEDS: SODIUM PHOS / POTASSIUM PHOS 1 PKT PDR PO SCH ×2 (12:50→16:44)
--- NOTE | 2018-12-07 14:58 | NUR ---
PER NANCI SCHRADER, PATIENT BACK FROM OR AT 1430. VITALS WERE TAKEN AND STABLE. Addendum: 12/07/18 at 1517 by Katherine Dey Meng, RN PT CAME BACK TO UNIT WITH NEW OSTOMY BAG. NO MORE AVELAR CATH INSIDE OSTOMY.
[2018-12-07] MEDS: AMPICILLIN 500 MG in NACL 0.9% 50 ML IV SCH ×2 (15:01→20:32)
[2018-12-07] MEDS: ONDANSETRON 4 MG/2 ML VIAL IM/IVP PRN ×2 (15:10→20:31)
--- NOTE | 2018-12-07 15:10 | NUR ---
ZOFRAN ADMINISTERED FOR C/O NAUSEA.
--- NOTE | 2018-12-07 16:10 | NUR ---
DENIES NAUSEA/VOMITING, ONE HOUR AFTER ZOFRAN ADMINISTRATION.
[2018-12-07] MEDS: FERROUS SULFATE 325 MG TABEC PO SCH (16:44)
--- NOTE | 2018-12-07 16:48 | NUR ---
POC GLUCOSE 77 MG/DL. WILL OFFER PT A JUICE- PT HAD BEEN NPO SINCE MIDNIGHT.
[2018-12-07] MEDS ORDERED: fentaNYL 0.05 MG/ML VIAL IVP SCH (16:50)
[2018-12-07] MEDS ORDERED: MIDAZOLAM 2 MG/2 ML VIAL IVP SCH (16:50)
--- NOTE | 2018-12-07 16:56 | NUR ---
ASKED PHARMACIST IF 1800 AMPICILLIN DOSE NEEDS ADJUSTMENT-SINCE 1200 DOSE WAS GIVEN AT 1500 D/T PATIENT BEING OFF UNIT FOR PROCEDURE. PER PHARMACIST, NO CHANGE IN SCHEDULE- JUST ADMINISTER 1800 AMPICILLIN WHENEVER K RIDER THAT IS CURRENT INFUSING IS FINISHED.
--- NOTE | 2018-12-07 19:29 | NUR ---
ENDORSED POC TO AGED OR DISABLED CARER RN. PT IN STABLE CONDITION.
--- NOTE | 2018-12-07 19:30 | NUR ---
ENDORSED TO LAUNDRY MACHINE OPERATOR RN TO ADMIN AMPICILLIN IV.
--- NOTE | 2018-12-07 19:32 | NUR ---
NOTIFIED DR. MEDEL TO CHANGE DIET- PT IS DIABETIC AND ON REGULAR DIET NOW.
--- NOTE | 2018-12-07 19:40 | NUR ---
RECEIVED FROM AM RN IN BED AWAKE AND ALERT. ABLE TO VERBALIZE SIMPLE NEEDS. CALL LIGHT WITH IN REACH AND ABLE TO USE IT WELL IF SHE NEEDS SOMETHING FOR HELP. CARE PLANS FOR THE NIGHT DISCUSSED WITH HER. AFEBRILE. IVF SITES IN PLACE AND IN INFILTRATION. Addendum: 12/07/18 at 1952 by Mary Venegas RN IVF SITES IN PLACE AND NO INFILTRATION NOTED.
[2018-12-07 20:15] VITALS: BP 142/76
[2018-12-07] MEDS: GABAPENTIN 300 MG CAP PO SCH (20:30)
[2018-12-07] MEDS: AMITRIPTYLINE 25 MG TAB PO SCH (20:31)
--- NOTE | 2018-12-07 20:34 | NUR ---
PT. AT THIS TIME REQUESTED FOR PAIN RELIEVER. STATED SHE IS STARTING TO HAVE BODY ACHES. MEDICATED REQUESTED. ABLE TO VERBALIZE NEEDS WELL. MEDICATED WITH MORPHINE 1 MG IVP REQUESTED BY PT.
--- NOTE | 2018-12-07 21:31 | NUR ---
RESIDENT MD AWARE OF URINE RESULT OF VRE. NO FURTHER ORDERS GIVEN.
--- NOTE | 2018-12-07 21:32 | NUR ---
PT. SLEEPING AT THIS TIME.
--- NOTE | 2018-12-07 23:07 | NUR ---
PT. AWAKE RT COLOSTOMY BAG FULL AND DETACHED. NEW BAG IN PLACE. KEPT CLEAN AND DRY. PT. WENT BACK TO SLEEP. TURNED TO SIDES AND ENCOURAGED TO STAY ON SIDE TURNED RT PT. HAS TENDENCY TO GO BACK TO OLD POSITION. PILLOW SUPPORT TO PRESSURE AREAS IN PLACE. IVF SITE INTACT AND NO INFILTRATION.
[2018-12-08 00:27] VITALS: BP 134/60
[2018-12-08] MEDS: AMPICILLIN 500 MG in NACL 0.9% 50 ML IV SCH ×2 (00:33→04:33)
[2018-12-08] MEDS: METOCLOPRAMIDE 10 MG/2 ML INJ VIAL IVP SCH ×5 (00:33→23:02)
--- NOTE | 2018-12-08 02:00 | NUR ---
PT. SLEEPING. WAKES U P EASILY WHEN TOUCHED. NO COMPLAINTS DONE.
[2018-12-08] MEDS: MORPHINE SULFATE 2 MG/ML SYR IVP PRN ×5 (03:29→22:52)
--- NOTE | 2018-12-08 03:29 | NUR ---
PT REQUEST PAIN MEDICATION FOR SEVERE PAIN 03/14 GIVEN .5MLS OF MORPHINE LEOLA Patel RN WATCHED .5ML BEING WASTED FROM PIXIES. PT GIVEN ORDERED AMOUNT OF 0.5ML
--- NOTE | 2018-12-08 03:33 | NUR ---
PT ALSO C/O NAUSEA GIVEN ORDERED ZOFRAN IVP.
[2018-12-08] MEDS: BLOOD GLUCOSE MONITORING 1 DEV DEV FS SCH ×4 (05:01→21:32)
--- NOTE | 2018-12-08 05:43 | NUR ---
PT. BLOOD SAMPLES TAKEN BY [employer]. [employer] AND PROVIDED WITH APPLE JUICE AFTER REQUESTED. CALLS OUT FOR ENTOMOLOGY TEACHER OR NURSE BY NAME IF IN NEED OF HELP.
--- NOTE | 2018-12-08 06:20 | NUR ---
AM PERSONAL HYGIENE RENDERED BY ENVIRONMENTAL HEALTH MANAGER AND ME. NEEDS ANTICIPATED AND MET. NO COMPLAINTS DONE AT THIS TIME. WILL ENDORSE TO THE AM RN FOR CONTINUITY OF CARE. PT. ABLE TO VERBALIZE NEEDS WELL IN NICARAGUAN.
[2018-12-08 06:41] LABS: CARBON DIOXIDE 25.8 mmol/L (21-32); CREATININE 0.6 mg/dL (0.6-1.3)
[2018-12-08 06:45] LABS: MAGNESIUM 1.9 mg/dL (1.8-2.4); PHOSPHORUS 2.5 mg/dL (2.5-4.9)
[2018-12-08 07:04] LABS: BASOPHILS # (AUTO) 0.1 K/uL (0.00-0.22); BASOPHILS % (AUTO) 1.2 % (0.0-2.0); EOSINOPHILS # (AUTO) 0.6 K/uL (0-0.4); EOSINOPHILS % (AUTO) 9.8 % (0.0-4.0); HEMATOCRIT 27.7 % (36-48); HEMOGLOBIN 8.6 g/dL (12.0-16.0); LYMPHOCYTES # (AUTO) 1.3 K/uL (2.5-16.5); LYMPHOCYTES % (AUTO) 22.1 % (20.5-51.1); MEAN CORPUSCULAR HEMOGLOBIN 22 pg (27-31); MEAN CORPUSCULAR HGB CONC 31 g/dL (33-37); MEAN CORPUSCULAR VOLUME 71.1 fL (80-94); MONOCYTES # (AUTO) 0.6 K/uL (0.8-1.0); MONOCYTES % (AUTO) 9.2 % (1.7-9.3); NEUTROPHILS # (AUTO) 3.5 K/uL (1.8-7.7); NEUTROPHILS % (AUTO) 57.7 % (42.2-75.2); PLATELET COUNT (AUTO) 346 K/uL (140-450)
[2018-12-08 07:26] LABS: POTASSIUM 2.8 mmol/L (3.5-5.1)
--- NOTE | 2018-12-08 07:30 | NUR ---
RECEIVED BEDSIDE REPORT FROM BRITTANY CHAMBERLAIN. PT STABLE, AWAKE, AND ALERT AND ORIENTED X2. NO SIGNS OF DISTRESS NOTED. DENIES PAIN OR SOB. NO REDNESS, SWELLING, OR INFLAMMATION NOTED ON IV SITE. CALL FLORES WITHIN REACH. BED IN LOWEST POSITION. BED ALARM ON. SAFETY MEASURES IN PLACE. PLAN OF CARE REVIEWED.
[2018-12-08 08:00] VITALS: BP 141/82
[2018-12-08] MEDS ORDERED: LORazepam 1 MG TAB PO SCH (09:00)
[2018-12-08] MEDS ORDERED: PSYLLIUM 12.2 GM/PKT PO SCH (09:00)
[2018-12-08] MEDS ORDERED: LACTULOSE 20 GM/30 ML UDC PO SCH ×2 (09:00→17:00)
--- NOTE | 2018-12-08 09:00 | NUR ---
PT STABLE, NO OTHER NEEDS AT THIS MOMENT.
[2018-12-08] MEDS ORDERED: POTASSIUM CHLORIDE 40 MEQ, LIDOCAINE MPF 1% - 5 mL VIAL 25 MG in NACL 0.9% 250 ML IV SCH (10:00)
[2018-12-08] MEDS: ASCORBIC ACID 500 MG TAB PO SCH (10:45)
[2018-12-08] MEDS: FERROUS SULFATE 325 MG TABEC PO SCH ×2 (10:45→18:29)
[2018-12-08] MEDS: GABAPENTIN 300 MG CAP PO SCH ×2 (10:46→21:50)
[2018-12-08] MEDS: LACTOBACILLUS RHAMNOSUS GG 1 EACH CAP PO SCH (10:46)
[2018-12-08] MEDS: LORazepam 1 MG TAB PO PRN ×2 (10:46→22:52)
[2018-12-08] MEDS: OXcarbazepine 150 MG TAB PO SCH ×2 (10:46→21:50)
[2018-12-08] MEDS: SODIUM PHOS / POTASSIUM PHOS 1 PKT PDR PO SCH ×3 (10:47→18:28)
[2018-12-08] MEDS: POTASSIUM CHLORIDE 20% 40 MEQ/15 ML UDC GT SCH ×2 (10:47→21:48)
--- NOTE | 2018-12-08 10:57 | NUR ---
[place] [facility] [place]FORMED [place] THAT THIS PATIENT WILL PROBABLY BE TRAN[place] [facility] [place], NEEDS ISOLATION FOR VRE URINE. FAXED INFORMATION TO HER AT [phone]
--- NOTE | 2018-12-08 11:14 | NUR ---
ADMINISTERED PRN MORPHINE AND JESSICA REGLAN. PATIENT TOLERATED WELL. EDUCATED ON SIDE EFFECTS. REASSESS TO BE DONE BY ROSITA MARQUIS RN. ENDORSED TO BRITTANY
[2018-12-08 12:09] LABS: ANION GAP 12.6 (8-16); CARBON DIOXIDE 26.4 mmol/L (21-32); CREATININE 0.6 mg/dL (0.6-1.3)
--- NOTE | 2018-12-08 12:10 | NUR ---
PT STABLE, NO NEEDS AT THIS MOMENT.
[2018-12-08] MEDS ORDERED: POTASSIUM CHLORIDE 40 MEQ, LIDOCAINE MPF 1% - 5 mL VIAL 25 MG in NACL 0.9% 250 ML IV ONE (12:40)
--- NOTE | 2018-12-08 13:07 | NUR ---
S.T. BEDSIDE SWALLOW EVAL COMPLETED See report for details. Pt presents w/ mild oropharyngeal dysphagia c/b prolonged mastication of soft solids, delayed pharyngeal swallow response. Pt c/o choking episode earlier this AM. Pt is at mild risk for aspiration due to limited UE use and desire to take P.O. while reclined/lying down. Pt educated towards aspiration precautions and prevention. Recommend: 1) Downgrade diet texture to mechanical soft GROUND; thin liquids okay. 2) P.O. meds as tolerated 3) Nsg to remind pt to be seated upright at 90 degrees for all P.O. intake. No further tx indicated at this time. DC to nsg care. D/w pt and BRITTANY Madison results/recommendations. Time 3913-5013
[2018-12-08] MEDS ORDERED: POTASSIUM CHLORIDE 10 MEQ TABER PO SCH (13:15)
--- NOTE | 2018-12-08 13:30 | NUR ---
PT REPOSITIONED, LINENS AND GOWN CHANGED.
[2018-12-08] MEDS: POTASSIUM CHL 20 MEQ/D5-1/2NS 1,000 ML IV SCH (15:09)
[2018-12-08] MEDS: LEVOFLOXACIN 500 MG/D5W PREMIX 100 ML IV SCH (15:10)
[2018-12-08] MEDS: SIMETHICONE 80 MG TAB.CHEW PO SCH ×2 (15:11→21:50)
[2018-12-08] MEDS: ONDANSETRON 4 MG/2 ML VIAL IM/IVP PRN (15:24)
--- NOTE | 2018-12-08 15:26 | NUR ---
[place] [facility] [place] PRESENT NO ISOLATION BEDS. INFORMED DR. GRUBBS.
--- NOTE | 2018-12-08 15:26 | NUR ---
ADMINISTERED SCHEDULED MEDICATIONS, PT TOLERATED WELL. NO OTHER NEEDS AT THIS TIME.
[2018-12-08 16:00] VITALS: BP 147/77
--- NOTE | 2018-12-08 16:30 | NUR ---
VITAL SIGNS TAKEN, PT STABLE.
[2018-12-08] MEDS: SENNA 8.6 MG TAB PO SCH ×2 (18:29→21:51)
[2018-12-08] MEDS: POLYETHYLENE GLYCOL 17 GM/PKT PO SCH ×2 (18:29→21:50)
--- NOTE | 2018-12-08 18:32 | NUR ---
ADMINISTERED SCHEDULED MEDICATIONS, PT TOLERATED WELL. NO OTHER NEEDS AT THIS TIME.
[2018-12-08] MEDS ORDERED: MAGNESIUM CITRATE 300 ML BTL PO SCH (19:00)
--- NOTE | 2018-12-08 19:30 | NUR ---
ENDORSED PT TO RN SUMMER FOR CONTINUITY OF CARE. PT STABLE.
--- NOTE | 2018-12-08 19:30 | NUR ---
RECEIVED BEDSIDE REPORT FROM RN ROSITA MARQUIS, PATIENT IN BED, ON 2 L NC, V/S STABLE, BG 103, NOTED OSTOMY BAG, LEAKING, CHANGED, PATIENT C/O ANXIETY WILL MEDICATED ACCORDING TO MD ORDER WHEN DUE, NOTED SACRAL REDNESS. BED IN LOWEST POSITION CALL LIGHT WITHIN REACH WILL CONTINUE TO MONITOR.
--- NOTE | 2018-12-08 20:00 | NUR ---
OSTOMY BAG LEAKING, CHANGED, REPOSITIONED PATIENT FOR COMFORT.
--- NOTE | 2018-12-08 20:47 | NUR ---
CALL FROM RADIOLOGY FOR CRITICAL, NOTIFIED DR MEDEL OF RESULTS. NO NEW ORDERS AT THIS TIME.
[2018-12-08] MEDS: metroNIDAZOLE 500 MG/NS PREMIX 100 ML IV SCH (21:50)
[2018-12-08] MEDS: AMITRIPTYLINE 25 MG TAB PO SCH (21:50)
[2018-12-08] MEDS: LINEZOLID 600MG PREMIX 300 ML IV SCH (21:50)
--- NOTE | 2018-12-08 21:50 | NUR ---
DUE MEDICATIONS GIVEN, EDUCATION PROVIDED, WILL CONTINUE TO MONITOR
--- NOTE | 2018-12-08 22:00 | NUR ---
PATIENT REFUSING TO SIGN CONSENT FOR COLONOSCOPY/EGD UNTIL A DOCTOR EXPLAINS THE PROCEDURES TO HER. ACCORDING TO PATIENT NO DOCTOR EXPLAINED THE PLAN OF CARE TO HER. CALLED DR MEDEL TO NOTIFY PATENT HAS QUESTIONS.
--- NOTE | 2018-12-08 23:02 | NUR ---
PATIENT C/O PAIN AND ANXIETY GAVE ATIVAN AND MORPHINE. PATIENT REFUSED REGLAN. STATED "I DONT WANT THAT".
[2018-12-09] MEDS: POTASSIUM CHL 20 MEQ/D5-1/2NS 1,000 ML IV SCH ×2 (00:43→08:54)
--- NOTE | 2018-12-09 00:44 | NUR ---
PATIENT C/O NAUSEA WILL GIVE ZOFRAN.
[2018-12-09] MEDS: ONDANSETRON 4 MG/2 ML VIAL IM/IVP PRN ×3 (00:46→21:50)
[2018-12-09 01:19] VITALS: BP 133/70
--- NOTE | 2018-12-09 03:09 | NUR ---
PATIENT C/O PAIN WILL GIVE MORPHINE.
[2018-12-09] MEDS: MORPHINE SULFATE 2 MG/ML SYR IVP PRN ×3 (03:33→19:13)
--- NOTE | 2018-12-09 03:36 | NUR ---
PATIENT NOT ON BIG BOARD TO DO PRE OP CHECKLIST
--- NOTE | 2018-12-09 04:30 | NUR ---
CALLED DR MEDEL FOR ORDER TO PUT PATIENT ON TELE, DR SHERI GARCIA
[2018-12-09] MEDS: metroNIDAZOLE 500 MG/NS PREMIX 100 ML IV SCH ×3 (05:05→21:41)
[2018-12-09] MEDS: SIMETHICONE 80 MG TAB.CHEW PO SCH (05:05)
[2018-12-09] MEDS: METOCLOPRAMIDE 10 MG/2 ML INJ VIAL IVP SCH (05:05)
--- NOTE | 2018-12-09 05:20 | NUR ---
DUE MEDICATIONS GIVEN, BG 109
[2018-12-09] MEDS: BLOOD GLUCOSE MONITORING 1 DEV DEV FS SCH ×2 (07:01→11:16)
--- NOTE | 2018-12-09 07:17 | NUR ---
ENDORSED PATIENT TO DAY SHIFT NURSE, PATIENT STABLE.
--- NOTE | 2018-12-09 07:31 | NUR ---
ENDORSED PATIENT TO DAY SHIFT NURSE, PATIENT STABLE.
--- NOTE | 2018-12-09 07:32 | NUR ---
RECEIVED PT FROM THE TRAFFIC CLERK NURSE AT BEDSIDE FOR CONTINUITY OF CARE. PT IS SLEEPING. WILL COME BACK TO ASSESS PT.
[2018-12-09 08:00] VITALS: BP 111/66
--- NOTE | 2018-12-09 08:00 | NUR ---
PT IS AWAKE AND ORIENTED. INTRODUCED MYSELF AND UPDATED THE BOARD. PT HAS NC 02 2L INFUSING. PT IS ON A TELE MONITOR. PT HAS 2 IVS. L WRIST 24G AND R AC 20G, D5 1/2 NS INFUSING AT 80ML. PT ALSO HAS A OSTOMY BAG. DARK GREEN LIQUID WITH SPECKS. EMPTIED 1150ML. BOTTOM BLANCHABLE REDNESS. V/S WITHIN NORMAL LIMITS. FAST RESP 24. WILL CONTINUE TO MONITOR PT.
--- NOTE | 2018-12-09 08:30 | NUR ---
DR GARCIA IS HERE TO SEE PT. PER , NO COLONOSCOPY. DC PREP.
[2018-12-09] MEDS: LACTOBACILLUS RHAMNOSUS GG 1 EACH CAP PO SCH (08:38)
[2018-12-09] MEDS: ASCORBIC ACID 500 MG TAB PO SCH (08:39)
[2018-12-09] MEDS: OXcarbazepine 150 MG TAB PO SCH ×2 (08:39→21:49)
[2018-12-09] MEDS: FERROUS SULFATE 325 MG TABEC PO SCH ×2 (08:39→17:18)
[2018-12-09] MEDS: GABAPENTIN 300 MG CAP PO SCH ×2 (08:39→21:49)
[2018-12-09] MEDS: LINEZOLID 600MG PREMIX 300 ML IV SCH ×2 (08:40→23:10)
[2018-12-09] MEDS: POTASSIUM CHLORIDE 20% 40 MEQ/15 ML UDC GT SCH (08:40)
--- NOTE | 2018-12-09 09:10 | NUR ---
DR MATIAS CAME BY TO SEE PT. PER , THIS PT HAD THE SAME ISSUE MONTHS AGO. NO SURGERY. JUST MONITOR. AGREES WITH DR GARCIA. GET PICC LINE AND START TPN. MONITOR PT AND THEN WE WILL SEE.
[2018-12-09] MEDS ORDERED: TPN PER PHARMACY MC PRN ×2 (09:40→10:15)
--- NOTE | 2018-12-09 11:00 | NUR ---
PT SLEEPING. NO SIGNS OF DISTRESS. WILL CONTINUE TO MONITOR PT.
[2018-12-09] MEDS: LORazepam 1 MG TAB PO PRN ×2 (11:13→22:03)
[2018-12-09 11:36] LABS: ALBUMIN 2.5 g/dL (3.4-5.0); CHOL/HDL RATIO 3.1 (1-4.5); MAGNESIUM 1.9 mg/dL (1.8-2.4); PHOSPHORUS 3.2 mg/dL (2.5-4.9)
[2018-12-09 11:39] LABS: ALBUMIN 2.5 g/dL (3.4-5.0); CARBON DIOXIDE 26.9 mmol/L (21-32); CREATININE 0.6 mg/dL (0.6-1.3); POTASSIUM 3.9 mmol/L (3.5-5.1); TOTAL BILIRUBIN 0.1 mg/dL (0.0-1.0)
--- NOTE | 2018-12-09 13:01 | NUR ---
PT SLEEPING. NO SIGNS OF DISTRESS. WILL CONTINUE TO MONITOR PT.
[2018-12-09 13:30] LABS: BASOPHILS % (AUTO) 0.4 % (0.0-2.0); EOSINOPHILS # (AUTO) 0.3 K/uL (0-0.4); EOSINOPHILS % (AUTO) 4.8 % (0.0-4.0); HEMATOCRIT 28.6 % (36-48); HEMOGLOBIN 8.8 g/dL (12.0-16.0); LYMPHOCYTES # (AUTO) 1.9 K/uL (2.5-16.5); LYMPHOCYTES % (AUTO) 34.5 % (20.5-51.1); MEAN CORPUSCULAR HEMOGLOBIN 22 pg (27-31); MEAN CORPUSCULAR HGB CONC 31 g/dL (33-37); MEAN CORPUSCULAR VOLUME 71.2 fL (80-94); MONOCYTES # (AUTO) 0.6 K/uL (0.8-1.0); MONOCYTES % (AUTO) 10.4 % (1.7-9.3); NEUTROPHILS # (AUTO) 2.8 K/uL (1.8-7.7); NEUTROPHILS % (AUTO) 49.9 % (42.2-75.2); PLATELET COUNT (AUTO) 369 K/uL (140-450); RED BLOOD CELL COUNT(AUTO) 4.01 MIL/uL (4.20-5.40); RED CELL DISTRIBUTION WIDTH 18.7 % (11.6-13.7); WHITE BLOOD COUNT (AUTO) 5.6 K/uL (4.8-10.8)
--- NOTE | 2018-12-09 14:55 | NUR ---
CONSENT FOR PICC LINE SIGNED. PT IN PAIN, REQUESTED PAIN MED. WILL ADMINISTER REQUESTED.
[2018-12-09] MEDS ORDERED: MORPHINE SULFATE 2 MG/ML SYR IVP PRN (15:00)
[2018-12-09] MEDS: LEVOFLOXACIN 500 MG/D5W PREMIX 100 ML IV SCH (15:05)
--- NOTE | 2018-12-09 15:20 | NUR ---
PT SOILED. CHANGED ALL LINENS. REPLACED THE COLOSTOMY BAG, IT LEAKED. PT REPOSITIONED AND CLEAN AND DRY.
--- NOTE | 2018-12-09 16:03 | NUR ---
PICC LINE NURSE HERE. WAITING ON WARP DYEING TENDER.
--- NOTE | 2018-12-09 16:15 | NUR ---
TIME OUT DONE. PRESENT: PICC LINE RN AND MYSELF.
--- NOTE | 2018-12-09 16:31 | NUR ---
12/09/18 RD FOLLOW UP COMPLETED PLEASE REFER TO NUTRITION PROGRESS NOTE UNDER CARE ACTIVITY FOR ESTIMATED NUTRITION NEEDS. RD RECOMMENDATIONS: 1. REC PPN:DEXTROSE:10%, AMINO ACIDS:4.25% AND 10% LIPIDS, PER PHARMACY, RECOMMEND START AT 50ML/HR FOR TWO HOURS AND IF TOLERATING, INCREASE TO 80ML/HR.. PPN AT 80ML/HR: TOTAL VOLUME:1920ML, PROVIDES 652KCAL, 82G PROTEIN (326KCAL) AND 120KCAL FROM 10% LIPIDS. TOTAL KCAL:1099KCAL. THIS MEETS 75% CALORIC NEEDS AND 115% PROTEIN NEEDS. 2.RD WILL F/U 2-3 DAYS; HIGH RISK. APRIL WEBSTER RD
[2018-12-09] MEDS ORDERED: MORPHINE SULFATE 2 MG/ML SYR IVP SCH (16:59)
--- NOTE | 2018-12-09 17:03 | NUR ---
PICC LINE PLACED. CALLED RADIOLOGY FOR CXRY FOR PLACEMENT. Addendum: 12/09/18 at 1841 by Kasie Ahuja RN Inge BRITO
[2018-12-09] MEDS: BLOOD GLUCOSE MONITORING 1 DEV DEV MC SCH (17:19)
[2018-12-09 18:00] VITALS: BP 116/62
--- NOTE | 2018-12-09 18:40 | NUR ---
STILL NO XRAY REPORT. AWAITING PLACEMENT.
--- NOTE | 2018-12-09 19:23 | NUR ---
ENDORSED PT TO THE [facility] OPERATIONS INTELLIGENCE OFFICER NURSE. PT IS IN STABLE CONDITION. ADMINISTERED MORPHINE FOR PAIN 04/14. ENDORSED THE PAIN REASSESSMENT.
--- NOTE | 2018-12-09 19:24 | NUR ---
RECD. RESTING IN BED, AWAKE, A/OX4, BEDBOUND. RESPIRATION EVEN AND UNLABORED. ON AT 2 LITERS VIA N/C, 02 SAT -98%. IV OF D51/2 NS +20 MEQ KCL AT 80 ML/HR INFUSING, LEFT AC G20. WITH PICC LINE AT THE RIGHT UPPER ARM. COLOSTOMY BAG INTACT DRAINING SMALL AMOUNT OF LOOSE BROWNISH STOOLS. ABDOMINAL PAIN 10/15, WAS MEDICATED BY AM NURSE. PLAN OF CARE FOR THE SHIFT DISCUSSED. VERBALIZED UNDERSTANDING.
--- NOTE | 2018-12-09 19:30 | NUR ---
Patient's Plan of Care was discussed and reviewed with RICARDO: PILI
[2018-12-09 20:00] VITALS: BP 110/56
[2018-12-09] MEDS: AMINO ACIDS IV SCH ×4 (20:00)
[2018-12-09] MEDS: MULTIVITAMIN IV SCH ×4 (20:00)
[2018-12-09] MEDS: DEXTROSE IV SCH ×4 (20:00)
[2018-12-09] MEDS: [UNRECOGNIZED DRUG - OTHER] IV SCH ×4 (20:00)
--- NOTE | 2018-12-09 20:00 | NUR ---
STARTED TPN AT 50 ML/HR INFUSING IN RIGHT UPPER ARM PICC LINE. PATIENT C/O NAUSEA ANS ANXIETY WILL GIVE ZOFRAN AND ATIVAN. GAVE DUE FLAGYL IN LEFT IV INFUSING AT 100 ML/HR.
--- NOTE | 2018-12-09 21:30 | NUR ---
FOLLOW UP WITH TESTING SHAKING SHIPPING CHEST-XRAY RESULT TO CONFIRM PROPER PLACEMENT OF RIGHT UPPER PICC LINE FOR TPN TO BE STARTED. Addendum: 12/10/18 at 0502 by Caro Monteiro LVN CORRECTION: TIME OF ENTRY SHOULD BE 1944 NOT 2129.
[2018-12-09] MEDS: AMITRIPTYLINE 25 MG TAB PO SCH (21:49)
--- NOTE | 2018-12-09 21:49 | NUR ---
DUE PO MEDICATIONS GIVEN. TOLERATED WELL.
--- NOTE | 2018-12-09 21:50 | NUR ---
COMPLAINED OF NAUSEA, MEDICATED WITH ZOFRAN 4 MG. IVP BY BRITTANY WEINBERG.
--- NOTE | 2018-12-09 22:30 | NUR ---
NO NAUSEA NOTED, RESTING COMFORTABLY IN BED.
--- NOTE | 2018-12-10 | NUR ---
PATIENT TOLERATING TPN WELL. INCREASED TO 80 ML/HR.
[2018-12-10 00:17] VITALS: BP 117/56
[2018-12-10] MEDS: MORPHINE SULFATE 2 MG/ML SYR IVP PRN ×6 (00:19→21:29)
--- NOTE | 2018-12-10 04:15 | NUR ---
PATIENT C/O PAIN WILL GIVE MORPHINE AND DUE FLAGYL.
[2018-12-10 04:17] VITALS: BP 122/64
[2018-12-10] MEDS: metroNIDAZOLE 500 MG/NS PREMIX 100 ML IV SCH ×3 (04:19→20:13)
--- NOTE | 2018-12-10 04:50 | NUR ---
SLEEPING COMFORTABLY IN BED.
[2018-12-10] MEDS: BLOOD GLUCOSE MONITORING 1 DEV DEV MC SCH ×5 (06:08→23:30)
--- NOTE | 2018-12-10 06:48 | NUR ---
CONDITION REMAIN STABLE. COMPLAINT OF ABDOMINAL PAIN ATTENDED PROMPTLY, MEDICATED ORDERED BY RN. ALL NEEDS ATTENDED PROMPTLY. WILL ENDORSE TO AM NURSE FOR CONTINUITY OF CARE.
--- NOTE | 2018-12-10 07:25 | NUR ---
RECEIVED BEDSIDE REPORT FROM [employer]PO[employer] SPECIALIST RN. PT IS AAOX4. ON 2 L NC, DRAINED OSTOMY BAG, 200ML OUTPUT, DARK GREEN STOOL. NO S/S OF ACUTE DISTRESS NOTED. PT HAS NO COMPLAINTS AT THIS TIME. BED IN LOWEST POSITION, CALL LIGHT WITHIN REACH, WILL CONTINUE TO MONITOR.
[2018-12-10 07:43] LABS: MAGNESIUM 1.7 mg/dL (1.8-2.4); PHOSPHORUS 3.6 mg/dL (2.5-4.9)
[2018-12-10 07:46] LABS: CARBON DIOXIDE 27.4 mmol/L (21-32); CREATININE 0.6 mg/dL (0.6-1.3); POTASSIUM 3.4 mmol/L (3.5-5.1)
[2018-12-10 08:00] VITALS: BP 133/72
[2018-12-10 08:02] LABS: BASOPHILS % (AUTO) 0.4 % (0.0-2.0); EOSINOPHILS # (AUTO) 0.2 K/uL (0-0.4); HEMATOCRIT 27.2 % (36-48); HEMOGLOBIN 8.6 g/dL (12.0-16.0); LYMPHOCYTES # (AUTO) 1.6 K/uL (2.5-16.5); LYMPHOCYTES % (AUTO) 27.6 % (20.5-51.1); MEAN CORPUSCULAR HEMOGLOBIN 22 pg (27-31); MEAN CORPUSCULAR HGB CONC 32 g/dL (33-37); MEAN CORPUSCULAR VOLUME 71.2 fL (80-94); MONOCYTES # (AUTO) 0.4 K/uL (0.8-1.0); MONOCYTES % (AUTO) 7.5 % (1.7-9.3); NEUTROPHILS # (AUTO) 3.5 K/uL (1.8-7.7); NEUTROPHILS % (AUTO) 60.5 % (42.2-75.2); PLATELET COUNT (AUTO) 340 K/uL (140-450); RED BLOOD CELL COUNT(AUTO) 3.82 MIL/uL (4.20-5.40); RED CELL DISTRIBUTION WIDTH 18.3 % (11.6-13.7); WHITE BLOOD COUNT (AUTO) 5.8 K/uL (4.8-10.8)
[2018-12-10] MEDS ORDERED: MORPHINE SULFATE 2 MG/ML SYR IVP SCH (08:30)
[2018-12-10] MEDS: ONDANSETRON 4 MG/2 ML VIAL IM/IVP PRN ×2 (08:46→18:42)
[2018-12-10] MEDS: FERROUS SULFATE 325 MG TABEC PO SCH ×2 (08:46→16:13)
[2018-12-10] MEDS: LACTOBACILLUS RHAMNOSUS GG 1 EACH CAP PO SCH (08:46)
[2018-12-10] MEDS: LORazepam 1 MG TAB PO PRN ×3 (08:47→20:32)
[2018-12-10] MEDS: LINEZOLID 600MG PREMIX 300 ML IV SCH ×2 (08:47→20:13)
[2018-12-10] MEDS: ASCORBIC ACID 500 MG TAB PO SCH (08:47)
[2018-12-10] MEDS: OXcarbazepine 150 MG TAB PO SCH ×2 (08:47→20:10)
[2018-12-10] MEDS: GABAPENTIN 300 MG CAP PO SCH ×2 (08:47→20:11)
--- NOTE | 2018-12-10 09:00 | NUR ---
IV 24G TO THE LEFT WRIST IS NO LONGER GOOD, INFILTRATED. DC'D, TIP INTACT, PRESSURE APPLIED.
--- NOTE | 2018-12-10 09:50 | NUR ---
BED BATH GIVEN BY GREEN PLUMBER. PERICARE DONE. CHANGED CHUX. REPOSITIONED PT.
--- NOTE | 2018-12-10 09:55 | NUR ---
CHANGED SACRAL OPTIFOAM DRESSING. SKIN IS INTACT, BLANCHABLE REDNESS NOTED.
--- NOTE | 2018-12-10 11:35 | NUR ---
PT WAS CLEANED, PERICARE DONE, PT WAS REPOSITIONED.
--- NOTE | 2018-12-10 11:40 | NUR ---
PT C/O RIGHT SIDE ABD PAIN, MADE DR PATEL AWARE. Addendum: 12/10/18 at 1558 by Js Fishman RN RIGHT LOWER ABD PAIN
[2018-12-10 12:00] VITALS: BP 133/70
--- NOTE | 2018-12-10 12:00 | NUR ---
PT'S DAUGHTER IS HERE, BROUGHT SOME GUMS FOR PT. ASKED DR PATEL IF IT'S OK FOR PT TO HAVE IT. SAID OK.
--- NOTE | 2018-12-10 13:58 | NUR ---
PT WAS CLEANED, PERICARE DONE, PT WAS REPOSITIONED.
[2018-12-10] MEDS: LEVOFLOXACIN 500 MG/D5W PREMIX 100 ML IV SCH (14:32)
[2018-12-10 16:00] VITALS: BP 137/72
[2018-12-10] MEDS ORDERED: MAGNESIUM OXIDE 400 MG TAB PO SCH (16:00)
[2018-12-10] MEDS ORDERED: POTASSIUM CHLORIDE 20% 40 MEQ/15 ML UDC PO SCH (16:00)
--- NOTE | 2018-12-10 16:20 | NUR ---
PT WATCHING TV, NO S/S OF ACUTE DISTRESS. SCHEDULED MEDS GIVEN.
--- NOTE | 2018-12-10 17:10 | NUR ---
PT WAS CLEANED, PERICARE DONE, PT WAS REPOSITIONED.
--- NOTE | 2018-12-10 18:59 | NUR ---
PERICARE DONE, CHUX CHANGED, PT WAS REPOSITIONED.
--- NOTE | 2018-12-10 19:15 | NUR ---
REPORT GIVEN TO TAKE OFF MAN RN FOR CONTINUITY OF CARE. PT IS STABLE AT THIS TIME.
--- NOTE | 2018-12-10 19:16 | NUR ---
RECEIVED PT IN STABLE CONDITION FROM AM NURSE. AWAKE,ALERT AND ORIENTED X4. ON TELE MONITOR. HAS O22L/NC. NO RESPIRATORY PROBLEM NOTED. BEDREST. WITH IVF INFUSING WELL ON THE RT UPPER AR PICC LINE. HAS COLOSTOMY BAG ON LT ABDOMEN, WITH SMALL AMOUNT OF STOOL OUTPUT. ABDOMEN SOFT ,NON DISTENDED. ON CONTACT ISOLATION. PREAUTION IN PLACED. PLAN OF CARE DISCUSSED AND VERBALIZED UNDERSTANDING. BED ON LOWEST POSITION. FREQUENT ROUNDS NEEDED. CALL LIGHT PLACED WITHIN EASY REACH. WILL CONTINUE TO MONITOR.
[2018-12-10 19:45] VITALS: BP 126/65
[2018-12-10] MEDS: MULTIVITAMIN IV SCH ×4 (20:10)
[2018-12-10] MEDS: DEXTROSE IV SCH ×4 (20:10)
[2018-12-10] MEDS: [UNRECOGNIZED DRUG - OTHER] IV SCH ×4 (20:10)
[2018-12-10] MEDS: AMINO ACIDS IV SCH ×4 (20:10)
[2018-12-10] MEDS: AMITRIPTYLINE 25 MG TAB PO SCH (20:11)
--- NOTE | 2018-12-10 21:50 | NUR ---
DR. VILLANUEVA CAME AND SEEN PT. HE SAID TO SEND STOOL SPECIMEN TO LAB FOR C DIFF SCREENING. SPECIMEN COLLECTED ,GREENISH LIQUID STOOL AND SEND TO LAB
--- NOTE | 2018-12-10 22:30 | NUR ---
PT INCONTINENT URINE. WET. CLEANED AND KEPT DRY. REPOSITIONED FOR COMFORT.
--- NOTE | 2018-12-11 00:45 | NUR ---
VITAL SIGNS TAKEN,. STABLE. C/O ABDOMINAL PAIN PAIN NOTED AT THIS TIME. WILL MEDICATE ORDERED.
[2018-12-11 00:50] VITALS: BP 130/66
[2018-12-11] MEDS: MORPHINE SULFATE 2 MG/ML SYR IVP PRN ×6 (01:08→18:23)
--- NOTE | 2018-12-11 02:00 | NUR ---
MADE ROUNDS. PT IS ASLEEP. NO S/S OF ANY DISCOMFORT NOTED.
[2018-12-11] MEDS: LORazepam 1 MG TAB PO PRN ×3 (02:35→15:16)
--- NOTE | 2018-12-11 04:00 | NUR ---
MADE ROUNDS. PT ASLEEP. NO S/S OF ANY DISCOMFORT NOTED.
[2018-12-11] MEDS: metroNIDAZOLE 500 MG/NS PREMIX 100 ML IV SCH ×2 (04:56→12:07)
[2018-12-11 05:00] VITALS: BP 120/75
--- NOTE | 2018-12-11 05:00 | NUR ---
COLOSTOMY BAG LEAKING, CLEANED VERY WELL, PAT DRY THEN CHANGED TO A NEW ONE.
[2018-12-11] MEDS: BLOOD GLUCOSE MONITORING 1 DEV DEV MC SCH ×3 (06:38→18:06)
--- NOTE | 2018-12-11 06:38 | NUR ---
LATEST BLOOD SUGAR THIS AM 107. NO INSULIN NEEDED. TPN INFUSING.
--- NOTE | 2018-12-11 07:28 | NUR ---
ENDORSED PT IN STABLE CONDITION TO AM NURSE.
--- NOTE | 2018-12-11 07:30 | NUR ---
RECEIVED BEDSIDE REPORT FROM FOREST ECONOMIST RN. PT IS AAOX4. ON 2 L NC, OSTOMY BAG IN PLACE, INTACT, HAS SOME DARK GREEN LIQUID STOOL. NO S/S OF ACUTE DISTRESS NOTED. PICC LINE TO THE RIGHT UA, INTACT AND DRY. PT HAS NO COMPLAINTS AT THIS TIME. BED IN LOWEST POSITION, CALL LIGHT WITHIN REACH, WILL CONTINUE TO MONITOR.
[2018-12-11 08:00] VITALS: BP 131/68
[2018-12-11 08:02] LABS: BASOPHILS % (AUTO) 0.8 % (0.0-2.0); EOSINOPHILS # (AUTO) 0.2 K/uL (0-0.4); EOSINOPHILS % (AUTO) 3.1 % (0.0-4.0); HEMATOCRIT 26.6 % (36-48); HEMOGLOBIN 8.3 g/dL (12.0-16.0); LYMPHOCYTES # (AUTO) 1.5 K/uL (2.5-16.5); LYMPHOCYTES % (AUTO) 27.6 % (20.5-51.1); MEAN CORPUSCULAR HEMOGLOBIN 23 pg (27-31); MEAN CORPUSCULAR HGB CONC 31 g/dL (33-37); MEAN CORPUSCULAR VOLUME 73.3 fL (80-94); MONOCYTES # (AUTO) 0.3 K/uL (0.8-1.0); MONOCYTES % (AUTO) 5.9 % (1.7-9.3); NEUTROPHILS # (AUTO) 3.4 K/uL (1.8-7.7); NEUTROPHILS % (AUTO) 62.6 % (42.2-75.2); PLATELET COUNT (AUTO) 326 K/uL (140-450); RED BLOOD CELL COUNT(AUTO) 3.63 MIL/uL (4.20-5.40); RED CELL DISTRIBUTION WIDTH 18.6 % (11.6-13.7); WHITE BLOOD COUNT (AUTO) 5.3 K/uL (4.8-10.8)
--- NOTE | 2018-12-11 08:15 | NUR ---
RECEIVED CALL FROM LAB, CRITICAL VALUE FOR K 7.2 AND GLUCOSE 500+. THE SPECIMEN WAS FROM [facility] LINE. CLS SAID THE SPECIMEN LOOKS CLOUDY. SUSPECTING CONTAMINATED SPECIMEN. ASKED FOR A REDRAW. Addendum: 12/11/18 at 1413 by Js Fishman RN TOLD THE CLS THAT POC GLUCOSE CHECK THIS MORNING AT 0600 WAS 107.
[2018-12-11] MEDS: LACTOBACILLUS RHAMNOSUS GG 1 EACH CAP PO SCH (08:44)
[2018-12-11] MEDS: GABAPENTIN 300 MG CAP PO SCH ×2 (08:44→20:47)
[2018-12-11] MEDS: ASCORBIC ACID 500 MG TAB PO SCH (08:45)
[2018-12-11] MEDS: OXcarbazepine 150 MG TAB PO SCH (08:45)
[2018-12-11] MEDS: LINEZOLID 600MG PREMIX 300 ML IV SCH ×2 (08:45→20:47)
[2018-12-11] MEDS: FERROUS SULFATE 325 MG TABEC PO SCH ×2 (08:45→17:47)
--- NOTE | 2018-12-11 09:56 | NUR ---
PERICARE DONE, CHUX CHANGED, PT WAS REPOSITIONED.
--- NOTE | 2018-12-11 10:30 | NUR ---
[place] [facility] [place] THEM. I CALLED VANESA [place] [facility] [place] FA[place] ORDER.
--- NOTE | 2018-12-11 10:34 | NUR ---
VANESA ALSO SAID THAT SHE SPOKE WITH [facility] AND THEY ARE TRYING TO FIND ANOTHER FACILITY CLOSED TO THE IN [facility]. SHE IS TRYING [facility].
[2018-12-11] MEDS ORDERED: ED NON STOCK ORDER 1 EA MISC PO SCH (10:50)
[2018-12-11] MEDS: ALBUTEROL SULFATE/IPRATROPIU 3 ML SOL IH SCH ×4 (11:00→23:00)
--- NOTE | 2018-12-11 11:15 | NUR ---
VANESA FROM [facility] CAME AND SHE ONLY HAVE 2 PILLS OF LATUDA LEFT. I TOOK THE PILLS TO OUR PHARMACY AND GAVE THEM TO . I INFORMED DR. GARDNER THAT THE MEDICATION WAS IN PHARMACY.
[2018-12-11 12:00] VITALS: BP 138/75
[2018-12-11] MEDS: PATIENTS OWN TABLET PO SCH (12:11)
--- NOTE | 2018-12-11 12:11 | NUR ---
PERICARE DONE, CHUX CHANGED, PT WAS REPOSITIONED.
[2018-12-11] MEDS: Z-GUARD PASTE TP SCH (12:54)
[2018-12-11 13:01] LABS: ALBUMIN 2.1 g/dL (3.4-5.0); ANION GAP 13.5 (8-16); CARBON DIOXIDE 25.7 mmol/L (21-32); CREATININE 0.7 mg/dL (0.6-1.3); MAGNESIUM 2.6 mg/dL (1.8-2.4); PHOSPHORUS 7.6 mg/dL (2.5-4.9); TOTAL BILIRUBIN 0.1 mg/dL (0.0-1.0)
[2018-12-11 13:06] LABS: POTASSIUM 7.2 mmol/L (3.5-5.1)
--- NOTE | 2018-12-11 13:08 | NUR ---
RECEIVED CALL FROM LAB CLS, CRITICAL VALUE ON K AND GLUCOSE. CHECKED WITH PT WHICH ARM WAS THE BLOOD DRAWN, PT STATED RIGHT ARM WHICH HAS THE PICC LINE RUNNING TPN. TOLD DR GARDNER, WILL ORDER ANOTHER RE-DRAW.
[2018-12-11] MEDS ORDERED: DEXTROSE 10% 1,000 ML IV SCH ×2 (13:20→20:00)
[2018-12-11 14:34] LABS: BASOPHILS % (AUTO) 0.6 % (0.0-2.0); EOSINOPHILS # (AUTO) 0.2 K/uL (0-0.4); EOSINOPHILS % (AUTO) 2.6 % (0.0-4.0); HEMATOCRIT 28.8 % (36-48); LYMPHOCYTES % (AUTO) 28.4 % (20.5-51.1); MEAN CORPUSCULAR HEMOGLOBIN 22 pg (27-31); MEAN CORPUSCULAR HGB CONC 31 g/dL (33-37); MEAN CORPUSCULAR VOLUME 71.1 fL (80-94); MONOCYTES # (AUTO) 0.4 K/uL (0.8-1.0); MONOCYTES % (AUTO) 6.1 % (1.7-9.3); NEUTROPHILS # (AUTO) 4.3 K/uL (1.8-7.7); NEUTROPHILS % (AUTO) 62.3 % (42.2-75.2); PLATELET COUNT (AUTO) 363 K/uL (140-450); RED BLOOD CELL COUNT(AUTO) 4.05 MIL/uL (4.20-5.40); RED CELL DISTRIBUTION WIDTH 18.4 % (11.6-13.7); WHITE BLOOD COUNT (AUTO) 6.9 K/uL (4.8-10.8)
[2018-12-11 14:58] LABS: ANION GAP 10.4 (8-16); CREATININE 0.5 mg/dL (0.6-1.3); POTASSIUM 3.4 mmol/L (3.5-5.1)
[2018-12-11 15:02] LABS: MAGNESIUM 2.1 mg/dL (1.8-2.4); PHOSPHORUS 3.3 mg/dL (2.5-4.9)
--- NOTE | 2018-12-11 15:07 | NUR ---
PERICARE DONE, CHUX CHANGED, PT WAS REPOSITIONED.
[2018-12-11] MEDS: LEVOFLOXACIN 500 MG/D5W PREMIX 100 ML IV SCH (15:17)
[2018-12-11] MEDS ORDERED: POTASSIUM CHLORIDE 10 MEQ TABER PO SCH (15:30)
--- NOTE | 2018-12-11 15:33 | NUR ---
12/11/18 RD FOLLOW UP COMPLETED PLEASE REFER TO NUTRITION ASSESSMENT UNDER CARE ACTIVITY FOR ESTIMATED NUTRITIONAL NEEDS. 1. CONTINUE PPN:DEXTROSE:10%, AMINO ACIDS:4.25% AND 10% LIPIDS, PER PHARMACY, RECOMMEND START AT 50ML/HR FOR TWO HOURS AND IF TOLERATING, INCREASE TO 80ML/HR. PPN AT 80ML/HR: TOTAL VOLUME:1920ML, PROVIDES 652KCAL, 82G PROTEIN (326KCAL) AND 120KCAL FROM 10% LIPIDS. TOTAL KCAL:1099KCAL. THIS MEETS 75% CALORIC NEEDS AND 115% PROTEIN NEEDS. 2. ADVANCE TO CLEAR LIQUID DIET WHEN PT IS MEDICALLY STABLE TO RECEIVE NUTRITION 3. RD WILL F/U 2-3 DAYS; HIGH RISK. ABDIRASHID MACK RD
[2018-12-11 16:00] VITALS: BP 121/64
--- NOTE | 2018-12-11 18:20 | NUR ---
PERICARE DONE, CHUX CHANGED, PT WAS REPOSITIONED.
--- NOTE | 2018-12-11 19:20 | NUR ---
REPORT GIVEN TO CERTIFIED EXECUTIVE CHEF RN FOR CONTINUITY OF CARE. PT IS STABLE AT THIS TIME.
--- NOTE | 2018-12-11 19:22 | NUR ---
RECEIVED BEDSIDE REPORT FROM DAY SHIFT RN. PT IS AAOX4. ON NC 1L. RESPIRATIONS ARE EQUAL AND UNLABORED. PT HAS PICC LINE ON R UPPER ARM DOUBLE LUMEN. PTN INFUSING AT 80ML/H LAST BAG. DEXTROSE 10 AT 30ML/HR. PT ON CLEAR LIQUID DIET ADVANCE TO FULL LIQUID FOR TOMORROW. SKIN INTACT. FOAM DRESSING ON SACRAL FOR PREVENTION. PT IS INCONTINENT. ON CONTACT,FALL,SZ PRECAUTION. PLAN OF CARE DISCUSSED WITH PT. CALL LIGHT WITHIN REACH.
[2018-12-11 20:00] VITALS: BP 118/86
[2018-12-11] MEDS: DEXTROSE IV SCH ×4 (20:00)
[2018-12-11] MEDS: [UNRECOGNIZED DRUG - OTHER] IV SCH ×4 (20:00)
[2018-12-11] MEDS: MULTIVITAMIN IV SCH ×4 (20:00)
[2018-12-11] MEDS: AMINO ACIDS IV SCH ×4 (20:00)
[2018-12-11] MEDS: AMITRIPTYLINE 25 MG TAB PO SCH (20:47)
--- NOTE | 2018-12-11 20:47 | NUR ---
DUE MEDICATIONS GIVEN. PT TOLERATED WELL. VITAL SIGNS ARE STABLE. ALL NEEDS MET AT THIS TIME. WILL CONTINUE TO MONITOR.
[2018-12-11] MEDS ORDERED: LORazepam 2 MG/ML VIAL IVP ONE (20:50)
[2018-12-11] MEDS ORDERED: OXcarbazepine 150 MG TAB PO SCH (21:00)
[2018-12-11] MEDS ORDERED: DEXTROSE 10% 1,000 ML IV ONE (21:31)
--- NOTE | 2018-12-11 22:54 | NUR ---
GAVE BEDSIDE REPORT TO RN. PT ENDORSED IN STABLE CONDITION.
--- NOTE | 2018-12-11 22:56 | NUR ---
RECEIVED REPORT FROM DESIRE RN. PT SLEEPING IN BED. NO S/S OF ACUTE DISTRESS. PT ON O2 1L NC.. RIGHT UPPER ARM PICC PATENT AND INTACT. CALL LIGHT WITHIN REACH. SAFETY MEASURES ENSURED. WILL CONTINUE TO MONITOR.
[2018-12-12] VITALS: BP 126/58
[2018-12-12] MEDS: Z-GUARD PASTE TP SCH ×2 (01:00→12:19)
[2018-12-12] MEDS: MORPHINE SULFATE 2 MG/ML SYR IVP PRN ×4 (01:26→22:03)
[2018-12-12] MEDS: ALBUTEROL SULFATE/IPRATROPIU 3 ML SOL IH SCH ×3 (03:00→11:00)
[2018-12-12 04:00] VITALS: BP 112/65
--- NOTE | 2018-12-12 04:15 | NUR ---
Pt sleeping in bed. No s/s of acute distress. Call light within reach. Will continue to monitor.
[2018-12-12] MEDS: BLOOD GLUCOSE MONITORING 1 DEV DEV MC SCH ×4 (05:30→18:22)
[2018-12-12 07:24] LABS: ANION GAP 11.8 (8-16); CARBON DIOXIDE 28.9 mmol/L (21-32); CREATININE 0.6 mg/dL (0.6-1.3); POTASSIUM 3.7 mmol/L (3.5-5.1)
--- NOTE | 2018-12-12 07:25 | NUR ---
REPORT RECEIVED FROM CHIEF KNOWLEDGE OFFICER NURSE, PT AWAKE ALERT, RESP EVEN UNLABORED, SKIN WARM DRY COLOR WNL, PT REPORTS ABDOMINAL PAIN, WILL MEDICATE PER ORDER, POC REVIEWED, ALL SAFETY MEASURES IN PLACE, WILL CONTINUE TO MONITOR.
[2018-12-12 07:28] LABS: PHOSPHORUS 3.9 mg/dL (2.5-4.9)
[2018-12-12] MEDS: ONDANSETRON 4 MG/2 ML VIAL IM/IVP PRN (07:42)
[2018-12-12 07:43] LABS: BASOPHILS % (AUTO) 0.4 % (0.0-2.0); EOSINOPHILS # (AUTO) 0.2 K/uL (0-0.4); EOSINOPHILS % (AUTO) 2.7 % (0.0-4.0); HEMATOCRIT 28.9 % (36-48); LYMPHOCYTES % (AUTO) 31.8 % (20.5-51.1); MEAN CORPUSCULAR HEMOGLOBIN 22 pg (27-31); MEAN CORPUSCULAR HGB CONC 31 g/dL (33-37); MEAN CORPUSCULAR VOLUME 71.9 fL (80-94); MONOCYTES # (AUTO) 0.4 K/uL (0.8-1.0); MONOCYTES % (AUTO) 5.8 % (1.7-9.3); NEUTROPHILS # (AUTO) 3.7 K/uL (1.8-7.7); NEUTROPHILS % (AUTO) 59.3 % (42.2-75.2); PLATELET COUNT (AUTO) 352 K/uL (140-450); RED BLOOD CELL COUNT(AUTO) 4.02 MIL/uL (4.20-5.40); RED CELL DISTRIBUTION WIDTH 18.7 % (11.6-13.7); WHITE BLOOD COUNT (AUTO) 6.2 K/uL (4.8-10.8)
--- NOTE | 2018-12-12 07:45 | NUR ---
MEDICATED WITH ZOFRAN FOR NAUSEA AND MORPHINE FOR PAIN PER ORDER, PT REPOSITIONED, NOW SITTING UP TO EAT BREAKFAST.
[2018-12-12 07:51] VITALS: BP 126/62
[2018-12-12] MEDS: FERROUS SULFATE 325 MG TABEC PO SCH ×2 (08:00→17:00)
[2018-12-12] MEDS: LACTOBACILLUS RHAMNOSUS GG 1 EACH CAP PO SCH (08:00)
[2018-12-12] MEDS ORDERED: LORazepam 2 MG/ML VIAL IVP SCH (08:02)
--- NOTE | 2018-12-12 09:25 | NUR ---
PHYSICAL THERAPY AT BEDSIDE
[2018-12-12] MEDS: LINEZOLID 600MG PREMIX 300 ML IV SCH ×2 (09:28→20:48)
[2018-12-12] MEDS: SENNA 8.6 MG TAB PO SCH (09:29)
[2018-12-12] MEDS: GABAPENTIN 300 MG CAP PO SCH ×2 (09:29→20:47)
[2018-12-12] MEDS: OXcarbazepine 150 MG TAB PO SCH ×2 (09:29→20:47)
[2018-12-12] MEDS: POLYETHYLENE GLYCOL 17 GM/PKT PO SCH (09:29)
[2018-12-12] MEDS: ASCORBIC ACID 500 MG TAB PO SCH (09:30)
--- NOTE | 2018-12-12 09:30 | NUR ---
PT REPORTS FEEDING ANXIOUS, REQUESTS ATIVAN, IV ATIVAN GIVEN PER ORDER.
--- NOTE | 2018-12-12 10:08 | NUR ---
PADS CHANGED, PERICARE DONE.
[2018-12-12] MEDS ORDERED: LORazepam 2 MG/ML VIAL IM/IVP PRN (11:00)
--- NOTE | 2018-12-12 11:45 | NUR ---
RADON INSPECTOR AT BEDSIDE FOR BEDBATH, LINEN CHANGE.
[2018-12-12 12:00] VITALS: BP 140/72
[2018-12-12] MEDS: PATIENTS OWN TABLET PO SCH (12:19)
--- NOTE | 2018-12-12 13:22 | NUR ---
CALLED [facility] AND SPOKE WITH HEIDI. THEY CAN TAKE THE PATIENT TOMORROW, BUT WILL NEED ORDER THAT PATIENT IS COLONIZED. SHE WILL GO TO ROOM 51B UNDER JORGE CHARLES TOMORROW.
--- NOTE | 2018-12-12 14:21 | NUR ---
PT IS SITTING UP IN BED IN NO ACCUTE DISTRESS, RESP EVEN, UNLABORED, TALKING WITHOUT PROBLEM, POC REVIEWED, NO IMMEIDATE NEEDS AT THIS TIME.
[2018-12-12] MEDS ORDERED: LEVOFLOXACIN 500 MG/D5W PREMIX 100 ML IV SCH (15:00)
--- NOTE | 2018-12-12 15:52 | NUR ---
WET DIAPER CHANGED, PT ABLE TO TURN HERSELF SIDE TO SIDE WITHOUT PROBLEM, PERICARE DONE, POSITIONED FOR COMFORT, WILL CONTINUE TO MONITOR.
--- NOTE | 2018-12-12 16:48 | NUR ---
PT REPORTS FEEDING ANXIOUS, REQUESTS ATIVAN, IV ATIVAN GIVEN PER ORDER.
[2018-12-12 16:59] VITALS: BP 134/82
--- NOTE | 2018-12-12 18:04 | NUR ---
PT SITTING UP IN BED WATCHING TV, DENIES ANY IMMEDIATE NEEDS AT THIS TIME.
--- NOTE | 2018-12-12 18:40 | NUR ---
DR GARCIA AT BEDSIDE. DR GARCIA MADE AWARE OF CRITICAL RADIOLOGY RESULT FROM EARLIER.
--- NOTE | 2018-12-12 19:27 | NUR ---
REPORT RECEIVED FROM FINISHING DEPARTMENT SUPERVISOR NURSE, PT IN STABLE CONDITION.
--- NOTE | 2018-12-12 19:32 | NUR ---
RECEIVED REPORT FROM NIGHT RN. PT RESTING IN BED. AAOX4. NO S/S OF ACUTE DISTRESS. RIGHT UPPER ARM PICC LINE PATENT AND INTACT. PT SLEEPING. COLOSTOMY BAG NOTED. CALL LIGHT WITHIN REACH. SAFETY MEASURES ENSURED. WILL CONTINUE TO MONITOR.
[2018-12-12] MEDS: AMITRIPTYLINE 25 MG TAB PO SCH (20:47)
[2018-12-13] VITALS: BP 125/57
--- NOTE | 2018-12-13 00:38 | NUR ---
PT SLEEPING IN BED. NO S/S OF ACUTE DISTRESS. CALL LIGHT WITHIN REACH. SAFETY MEASURES ENSURED. WILL CONTINUE TO MONITOR.
[2018-12-13] MEDS: Z-GUARD PASTE TP SCH ×2 (00:59→13:39)
[2018-12-13] MEDS: LORazepam 2 MG/ML VIAL IM/IVP PRN ×2 (04:48→17:29)
[2018-12-13] MEDS: BLOOD GLUCOSE MONITORING 1 DEV DEV MC SCH ×5 (05:04→23:49)
--- NOTE | 2018-12-13 05:08 | NUR ---
PT RESTING IN BED. NO S/S OF ACUTE DISTRESS. CALL LIGHT WITHIN REACH. SAFETY MEASURES ENSURED. WILL CONTINUE TO MONITOR.
[2018-12-13] MEDS: MORPHINE SULFATE 2 MG/ML SYR IVP PRN ×2 (06:01→20:52)
--- NOTE | 2018-12-13 07:10 | NUR ---
RECEIVED PT FROM OCULAR PATHOLOGIST NURSETRAVON, PT IS AWAKE AND LYING ON THE BED, WITH SIDE RAILS UP AND CALL LIGHT WITHIN REACH, FALL PRECAUTION INITIATED, PT HAS A PICC LINE ON THE RT UA DOUBLE LUMEN WITH NS AT 10 ML/HR INFUSING, PT HAS A COLOSTOMY BAG ON THE LEFT ABDOMEN, INTACT. PT DENIES PAIN AND NO SOB NOTED, NO SIGN OF DISTRESS NOTED AND WILL CONTINUE TO MONITOR PT.
[2018-12-13 08:00] VITALS: BP 148/80
--- NOTE | 2018-12-13 09:50 | NUR ---
[place] clinical[place] [facility] [place]
--- NOTE | 2018-12-13 10:20 | NUR ---
PT WAS CLEANED AND REPOSITIONED AND COLOSTOMY BAG WAS CHANGED.
--- NOTE | 2018-12-13 10:30 | NUR ---
PT IS AWAKE AND VITAL SIGNS CHECKED AND IS WITHIN NORMAL LIMIT, ORAL AND IV MEDICATIONS WERE GIVEN AND PT TOLERATED IT. NO SIGN OF DISTRESS NOTED AND WILL MONITOR PT.
--- NOTE | 2018-12-13 10:30 | NUR ---
Spoke with Shai from [facility] pt will be going to room 51 B. [facility] still waiting for the AUTH from [employer].
[2018-12-13] MEDS: SENNA 8.6 MG TAB PO SCH (10:31)
[2018-12-13] MEDS: ASCORBIC ACID 500 MG TAB PO SCH (10:31)
[2018-12-13] MEDS: FERROUS SULFATE 325 MG TABEC PO SCH ×2 (10:31→17:28)
[2018-12-13] MEDS: OXcarbazepine 150 MG TAB PO SCH ×2 (10:32→20:52)
[2018-12-13] MEDS: metroNIDAZOLE 500 MG TAB PO SCH ×3 (10:32→17:29)
[2018-12-13] MEDS: POLYETHYLENE GLYCOL 17 GM/PKT PO SCH (10:32)
[2018-12-13] MEDS: LACTOBACILLUS RHAMNOSUS GG 1 EACH CAP PO SCH (10:33)
[2018-12-13] MEDS: LINEZOLID 600MG PREMIX 300 ML IV SCH ×2 (10:33→20:52)
--- NOTE | 2018-12-13 10:35 | NUR ---
Called Lacey herrera Delano t [phone]. Left a message to call me back.
[2018-12-13] MEDS: ONDANSETRON 4 MG/2 ML VIAL IM/IVP PRN (10:43)
--- NOTE | 2018-12-13 10:50 | NUR ---
PT IS BEING EVALUATED SHAILA P Addendum: 12/13/18 at 1102 by Katlyn Ashley RN PT IS BEING EVALUATED BY PT NOW. ABOVE NOTE CORRECTED..
[2018-12-13] MEDS: GABAPENTIN 300 MG CAP PO SCH ×2 (11:05→20:52)
--- NOTE | 2018-12-13 11:34 | NUR ---
LOW FIBER DIET WAS PROVIDED TO PATIENT AND PATIENT'S FAMILY MEMBERS BEFORE DISCHARGE. A HANDOUT WAS GIVEN TO PATIENT, AND PATIENT ACCEPTED.
--- NOTE | 2018-12-13 11:45 | NUR ---
PT IS AWAKE AND BLOOD GLUCOSE CHECK DONE AND RESULT IS 95, NO INSULIN COVERAGE NEEDED.
--- NOTE | 2018-12-13 11:47 | NUR ---
[id number] CALLED [facility] AND SPOKE WITH ZAID REGARDING PATIENT DOES HAVE MCR PART B BUT DOES NOT MEET CRITERIA FOR AMBULANCE TRANSPORT TO SNF. PER ZAID AN AUTH# HAS BEEN GENERATED FOR [facility] TRANSPORT AND NUMBER IS [id number].
[2018-12-13] MEDS: PATIENTS OWN TABLET PO SCH (12:00)
[2018-12-13] MEDS ORDERED: MORPHINE SULFATE 2 MG/ML SYR IVP SCH (13:00)
[2018-12-13] MEDS ORDERED: HYDR-5092 PO (13:02)
[2018-12-13] MEDS ORDERED: LORA-476 PO (13:02)
[2018-12-13] MEDS ORDERED: FLEPED RC (13:02)
[2018-12-13] MEDS ORDERED: DOCU-299 PO (13:02)
[2018-12-13] MEDS ORDERED: GABA300C PO (13:03)
[2018-12-13] MEDS ORDERED: FERR325E14 PO (13:20)
--- NOTE | 2018-12-13 13:53 | NUR ---
PT IS AWAKE AND VITAL SIGNS CHECKED, ORAL AMD IV MEDICATIONS WERE GIVEN AND PT TOLERATED IT. DR. GARDNER CAME TO THE PT'S ROOM JOSE SAID THAT CT OF ABDOMEN AND PELVIS WITH CONTRAST IS CANCELLED AND PT WILL BE DISCHARGE BACK [place] [facility]. ACKNOWLEDGED AND WILL CARRY OUT DISCHARGE PROCESS
--- NOTE | 2018-12-13 13:53 | NUR ---
Spoke with Lorraine from [facility] admission adminstrator they are not accepting [employer] at this time.
--- NOTE | 2018-12-13 13:59 | NUR ---
Called Tiny admission contract administrator from [facility] , left a message to be called back regarding for a bed placement.
--- NOTE | 2018-12-13 14:06 | NUR ---
Spoke with Asael from [facility] , they cannot accept the pt until they receive the AUTH from [employer]. They already left a message to the CM of [employer] and [facility] is just waiting for the AUTH. Shai will call us once they get the AUTH from [employer].
--- NOTE | 2018-12-13 14:47 | NUR ---
Spoke with Tiny from [facility] admission's sales and marketing administrator, they don't accept [employer].
--- NOTE | 2018-12-13 14:57 | NUR ---
Spoke with Ama FERNANDO from [facility] and informed her that [facility] doesn't have contracts with [employer] at this time. Ama will call [facility] and will get back with me.
[2018-12-13] MEDS ORDERED: LEVOFLOXACIN 500 MG TAB PO SCH (15:00)
[2018-12-13] MEDS ORDERED: METR500T1 PO (15:13)
[2018-12-13] MEDS ORDERED: LEVO500T2 PO (15:13)
[2018-12-13] MEDS ORDERED: LINE600T PO (15:15)
--- NOTE | 2018-12-13 15:45 | NUR ---
Called Ama FERNANDO from [facility] ext [phone] making a follow regarding the AUTH for [facility].
[2018-12-13 16:00] VITALS: BP 133/84
--- NOTE | 2018-12-13 17:00 | NUR ---
PT IS AWAKE AND BLOOD GLUCOSE CHECK DONE, RESULT IS 95 AND NO INSULIN COVERAGE NEEDED.
--- NOTE | 2018-12-13 17:39 | NUR ---
PT MIS AWAKE AND ORAL AND IV MEDICATION WERE GIVEN, VITAL SIGNS TAKEN, BP IS 133/84, PULSE IS106, TEMPERATURE IS 97.5, O2 SATURATION IS 97% AND NO SIGN OF DISTRESS NOTED. WILL MONITOR PT.
--- NOTE | 2018-12-13 19:27 | NUR ---
ENDORSED PT TO BOTANY LABORATORY ASSISTANT NURSEVITO FOR CONTINUITY OF CARE. PT IS STABLE AT THIS TIME.
--- NOTE | 2018-12-13 19:30 | NUR ---
ASSUMED CARE OF PATIENT, AWAKE, ALERT AND ORIENTED. BEEN ASKING A LOT REGARDING DISCHARGE AND EXPLAINED TO HER, HER FAMILY REFUSED FOR HER TO GO BACK [place] [facility]. CARE BOARD UPDATED. PLAN OF CARE DISCUSSED WITH PATIENT, NEEDS REINFORCEMENT. CALL LIGHT WITHIN REACH.
--- NOTE | 2018-12-13 20:00 | NUR ---
REPOSITIONED TO RIGHT SIDE LYING BY DIRECTOR OF FINANCIAL PLANNING. VITAL SIGNS STABLE. NO COMPLAINS. CALL LIGHT WITHIN REACH.
[2018-12-13] MEDS: AMITRIPTYLINE 25 MG TAB PO SCH (20:52)
--- NOTE | 2018-12-13 22:28 | NUR ---
COLOSTOMY BAG CHANGE WITH COLOSTOMY CARE DONE. PERICARE BY SCHOOL YEAR NANNY AND REPOSITIONED TO SEMIFOWLERS. CALL LIGHT WITHIN REACH.
[2018-12-13 23:52] VITALS: BP 134/77
--- NOTE | 2018-12-13 23:56 | NUR ---
BS DONE. NO COMPLAINS. VITAL SIGNS STABLE. AFEBRILE. CALL LIGHT WITHIN REACH. DR. VILLANUEVA AT BEDSIDE.
[2018-12-14] MEDS: Z-GUARD PASTE TP SCH ×2 (02:00→13:24)
[2018-12-14] MEDS: MORPHINE SULFATE 2 MG/ML SYR IVP PRN (04:23)
--- NOTE | 2018-12-14 04:30 | NUR ---
PAIN MEDICATION GIVEN ORDERED. CALL LIGHT WITHIN REACH. REPOSITIONED RIGHT SIDE LYING.
[2018-12-14] MEDS: LORazepam 2 MG/ML VIAL IM/IVP PRN (05:34)
[2018-12-14] MEDS: BLOOD GLUCOSE MONITORING 1 DEV DEV MC SCH ×2 (05:34→12:00)
[2018-12-14 06:49] LABS: ANION GAP 11.4 (8-16); CARBON DIOXIDE 29.9 mmol/L (21-32); CREATININE 0.7 mg/dL (0.6-1.3); POTASSIUM 3.3 mmol/L (3.5-5.1)
[2018-12-14 06:56] LABS: MAGNESIUM 1.8 mg/dL (1.8-2.4); PHOSPHORUS 4.4 mg/dL (2.5-4.9)
--- NOTE | 2018-12-14 07:16 | NUR ---
ENDORSED CARE AT BEDSIDE WITH SANDRA RN, PATIENT IN STABLE CONDITION.
--- NOTE | 2018-12-14 07:17 | NUR ---
RECEIVED BEDSIDE REPORT FROM EMERGING TECHNOLOGIES DIRECTOR NURSE. PATIENT IS AWAKE, ALERT AND ORIENTEDX4. NO SIGNS OF DISTRESS ON RA. SKIN IS INTACT. PATIENT HAS INCONTINENT DERMATITIS. PATIENT INCONTINENT. BEDBOUND. FALL RISK PROTOCOL IN PLACE. SHARONDA PICC LINE DOUBLE LUMEN, TKO. PATIENT HAS A COLOSTOMY, DRAINING WELL. SEIZURES, AND CONTACT PRECAUTIONS IN PLACE. BED IN LOW POSITION. CALL LIGHT WITHIN REACH. PATIENT ABLE TO MAKE NEEDS KNOWN. WILL CONTINUE TO MONITOR
[2018-12-14 08:00] VITALS: BP 129/69
[2018-12-14 08:08] LABS: BASOPHILS # (AUTO) 0.1 K/uL (0.00-0.22); BASOPHILS % (AUTO) 0.9 % (0.0-2.0); EOSINOPHILS # (AUTO) 0.3 K/uL (0-0.4); EOSINOPHILS % (AUTO) 5.5 % (0.0-4.0); HEMATOCRIT 31.7 % (36-48); HEMOGLOBIN 9.7 g/dL (12.0-16.0); LYMPHOCYTES # (AUTO) 1.9 K/uL (2.5-16.5); LYMPHOCYTES % (AUTO) 31.1 % (20.5-51.1); MEAN CORPUSCULAR HEMOGLOBIN 22 pg (27-31); MEAN CORPUSCULAR HGB CONC 31 g/dL (33-37); MEAN CORPUSCULAR VOLUME 72.1 fL (80-94); MONOCYTES # (AUTO) 0.4 K/uL (0.8-1.0); MONOCYTES % (AUTO) 6.1 % (1.7-9.3); NEUTROPHILS # (AUTO) 3.4 K/uL (1.8-7.7); NEUTROPHILS % (AUTO) 56.4 % (42.2-75.2); PLATELET COUNT (AUTO) 388 K/uL (140-450); RED BLOOD CELL COUNT(AUTO) 4.39 MIL/uL (4.20-5.40); RED CELL DISTRIBUTION WIDTH 20.6 % (11.6-13.7)
[2018-12-14] MEDS: ACETAMINOPHEN 325 MG TAB PO PRN (08:26)
[2018-12-14] MEDS: LACTOBACILLUS RHAMNOSUS GG 1 EACH CAP PO SCH (08:26)
[2018-12-14] MEDS: OXcarbazepine 150 MG TAB PO SCH (08:26)
[2018-12-14] MEDS: metroNIDAZOLE 500 MG TAB PO SCH ×2 (08:26→13:29)
[2018-12-14] MEDS: GABAPENTIN 300 MG CAP PO SCH (08:26)
[2018-12-14] MEDS: ASCORBIC ACID 500 MG TAB PO SCH (08:26)
[2018-12-14] MEDS: FERROUS SULFATE 325 MG TABEC PO SCH (08:27)
[2018-12-14] MEDS: POLYETHYLENE GLYCOL 17 GM/PKT PO SCH (08:27)
[2018-12-14] MEDS: LINEZOLID 600MG PREMIX 300 ML IV SCH (08:27)
[2018-12-14] MEDS: SENNA 8.6 MG TAB PO SCH (08:27)
--- NOTE | 2018-12-14 08:39 | NUR ---
ADMINISTERED MEDS. EDUCATED ON SIDE EFFECTS. PATIENT TOLERATED WELL AND VERBALIZED UNDERSTANDING. WILL CONTINUE TO MONITOR THE PATIENT
[2018-12-14] MEDS ORDERED: POTASSIUM CHLORIDE 10 MEQ TABER PO SCH (09:00)
--- NOTE | 2018-12-14 09:06 | NUR ---
Pt is alert and oriented X4. Pt wants to be transferred back to [facility].
--- NOTE | 2018-12-14 09:08 | NUR ---
Spoke with Ama FERNANDO from [facility] ext [phone] and informed her that [place] [facility] AUTH # [id number] for [facility]. Ama will not give AUTH for transportation. Nereida dexter and it will be a [facility] bill.
--- NOTE | 2018-12-14 10:05 | NUR ---
Transportation arranged with [employer] and will be a [facility] bill. Pt will be picked up at 1430 from room 122 B and transported to [facility] [address] [place] [address]. [id number] room 51 B. Phone number . Beatris SOTO CN notified.
--- NOTE | 2018-12-14 10:08 | NUR ---
Ruby Gibbons from [facility] [place] [place] will be picked up by [employer] at 1430.
[2018-12-14] MEDS ORDERED: MORPHINE SULFATE 2 MG/ML SYR IVP SCH (10:41)
--- NOTE | 2018-12-14 10:42 | NUR ---
administered [facility] med. patient tolerated well. will continue to monitor the patient. colostomy bag was removed when doing PT. new bag placed.
[2018-12-14] MEDS: PATIENTS OWN TABLET PO SCH (12:00)
--- NOTE | 2018-12-14 12:00 | NUR ---
patient resting in bed. no signs of distress. will continue to monitor the patient. patient able to make needs known
--- NOTE | 2018-12-14 13:44 | NUR ---
administered meds. patient tolerated well. educated on side effects. we dont have latuda right now, [place] [facility] [place] [place] is aware.
--- NOTE | 2018-12-14 15:00 | NUR ---
EDUCATED PATIENT ON DISEASE PROCESS, ABN S/SX, WHEN TO GO TO THE ER, FOLLOW UP W PCP, EDUCATED ON MEDS, MEDS GIVEN TO [facility]. CALLED , AWARE PATIENT IS GOING [place] [facility] GAVE REPORT TO BRITTANY GOSS AT [facility] PATIENTS ID BANDS REMOVED. PICC LINE REMOVED, TIP INTACT. PATIENT VERBALIZED UNDERSTANDING AND SIGNED PAPERWORK. PATIENT LEFT IN STABLE CONDITION.
== END 2018-12-14 15:00 | DRG 252 ==
LOC: MED 20:17 → MTU 12-04 00:27
PROVIDERS: ADMIT General Practice; ATTEND General Practice
PROC: 0D7E8ZZ Dilation of Large Intestine, Via Natural or Artificial Opening Endoscopic (ICD-10-PCS; 2018-12-06)
PROC: 0DB98ZX Excision of Duodenum, Via Natural or Artificial Opening Endoscopic, Diagnostic (ICD-10-PCS; principal; 2018-12-06 14:05)
PROC: 0DBH8ZX Excision of Cecum, Via Natural or Artificial Opening Endoscopic, Diagnostic (ICD-10-PCS; 2018-12-07)
PROC: 0D7 Gastrointestinal System, Dilation (ICD-10-PCS; 2018-12-07)
PROC: 02HV33Z Insertion of Infusion Device into Superior Vena Cava, Percutaneous Approach (ICD-10-PCS; 2018-12-09)
PROC: B548ZZA Ultrasonography of Superior Vena Cava, Guidance (ICD-10-PCS; 2018-12-09)
DX: K94.03 Colostomy malfunction (principal); E43 Unspecified severe protein-calorie malnutrition; K63.1 Perforation of intestine (nontraumatic); E11.42 Type 2 diabetes mellitus with diabetic polyneuropathy; I48.91 Unspecified atrial fibrillation; J44.9 Chronic obstructive pulmonary disease, unspecified; E83.42 Hypomagnesemia; E83.39 Other disorders of phosphorus metabolism; K56.41 Fecal impaction; D50.9 Iron deficiency anemia, unspecified; B95.2 Enterococcus as the cause of diseases classified elsewhere; Z16.21 Resistance to vancomycin; K44.9 Diaphragmatic hernia without obstruction or gangrene; M19.90 Unspecified osteoarthritis, unspecified site; N20.0 Calculus of kidney; N28.1 Cyst of kidney, acquired; D63.8 Anemia in other chronic diseases classified elsewhere; K57.30 Diverticulosis of large intestine without perforation or abscess without bleeding; E66.9 Obesity, unspecified; G89.4 Chronic pain syndrome; G40.909 Epilepsy, unspecified, not intractable, without status epilepticus; I10 Essential (primary) hypertension; I25.10 Atherosclerotic heart disease of native coronary artery without angina pectoris; Y83.3 Surgical operation with formation of external stoma as the cause of abnormal reaction of the patient, or of later complication, without mention of misadventure at the time of the procedure; F20.9 Schizophrenia, unspecified; E87.6 Hypokalemia; E87.1 Hypo-osmolality and hyponatremia; N39.0 Urinary tract infection, site not specified; Z68.39 Body mass index [BMI] 39.0-39.9, adult; Z95.5 Presence of coronary angioplasty implant and graft; Z88.6 Allergy status to analgesic agent; Z88.1 Allergy status to other antibiotic agents; Z88.8 Allergy status to other drugs, medicaments and biological substances; Z87.891 Personal history of nicotine dependence; Z82.49 Family history of ischemic heart disease and other diseases of the circulatory system
CPT/HCPCS: 36415; 44388; 71045; 74018; 74250; 80048; 80053; 81001; 82040; 82272; 82607; 82728; 82746; 82948; 83036; 83540; 83605; 83690; 83735; 83880; 84100; 84134; 84443; 84484; 85025; 85045; 85610; 85730; 87040; 87070; 87081; 87086; 87186; 88305; 92610; 93005; 96365; 96375; 97110; 97116; 97530; 99285; A9153; C1751; C1758; C9113; J0290; J0295; J0696; J1170; J1200; J1644; J1815; J1885; J1956; J2001; J2020; J2060; J2250; J2270; J2405; J2765; J2916; J3010; J3480; J3490; J7030; J7060; Q0092; Q9967

== ENCOUNTER 2018-12-23 09:23 | Inpatient (IN) | payer OTHER, MEDICARE ==
[~2018-12-23] VITALS: Ht 167.6 cm; Wt 85.3 kg
[~2018-12-23 09:23] MED LIST changes: -ACET-5636 PO; +FERR325E14 PO; +FLEPED RC; +GABA300C PO; -GABA400C PO; +HYDR-5092 PO; +LEVO500T2 PO; +LINE600T PO; +LORA-476 PO; -MERO1PDS2 IV; +METR500T1 PO; -MSCON15 PO; -NA P133N1 RC
--- NOTE | 2018-12-23 09:23 | NUR ---
Patient BIBA BLS from [facility], transferred to bed 8. RN evaluating patient at bedside.
--- NOTE | 2018-12-23 09:24 | NUR ---
63 Y FEMALE BIBA FROM [facility] C/O DISTENDED ABDOMEN. PT STATES SHE HASNT HAD A BOWEL MOVEMENT IN THE PAST WEEK. COLOSTOMY BAG ON THE L SIDE OF ADBDOMEN. ABDOMEN IS DISTENDED, HYPOACTIVE BOWEL SOUNDS, ABDOMEN IS HARD AND ROUND. +NAUSEA. AA0X4. VSS AT THIS TIME. BED IS DOWN, LOCKED, BED RAIL X 1, ERMD NOTIFIED. PMH- STROKE, DIVERTICULTITIS, SEPSIS, PNEUMONIA PT HAS MED LIST
--- NOTE | 2018-12-23 09:25 | NUR ---
Dr. Lange evaluating patient at bedside.
[2018-12-23 09:29] VITALS: BP 141/74
[2018-12-23] MEDS ORDERED: NACL 0.9% 1,000 ML IV ONE (09:36)
[2018-12-23] MEDS ORDERED: MORPHINE SULFATE 4 MG/ML SYR IVP ONE (09:40)
[2018-12-23] MEDS ORDERED: KETOROLAC 30 MG/ML VIAL IVP ONE (09:40)
[2018-12-23] MEDS ORDERED: ONDANSETRON 4 MG/2 ML VIAL IVP ONE (09:40)
--- NOTE | 2018-12-23 10:03 | NUR ---
LAB AT BEDSIDE
--- NOTE | 2018-12-23 10:15 | NUR ---
PT BEING TAKEN TO CT
[2018-12-23 10:28] LABS: BASOPHILS # (AUTO) 0.2 K/uL (0.00-0.22); BASOPHILS % (AUTO) 1.3 % (0.0-2.0); EOSINOPHILS # (AUTO) 0.4 K/uL (0-0.4); EOSINOPHILS % (AUTO) 2.6 % (0.0-4.0); HEMATOCRIT 37.6 % (36-48); HEMOGLOBIN 11.9 g/dL (12.0-16.0); LYMPHOCYTES # (AUTO) 2.2 K/uL (2.5-16.5); LYMPHOCYTES % (AUTO) 16.3 % (20.5-51.1); MEAN CORPUSCULAR HEMOGLOBIN 24 pg (27-31); MEAN CORPUSCULAR HGB CONC 32 g/dL (33-37); MEAN CORPUSCULAR VOLUME 74.6 fL (80-94); MONOCYTES % (AUTO) 7.3 % (1.7-9.3); NEUTROPHILS # (AUTO) 9.9 K/uL (1.8-7.7); NEUTROPHILS % (AUTO) 72.5 % (42.2-75.2); PLATELET COUNT (AUTO) 367 K/uL (140-450); RED BLOOD CELL COUNT(AUTO) 5.04 MIL/uL (4.20-5.40); RED CELL DISTRIBUTION WIDTH 25.5 % (11.6-13.7); WHITE BLOOD COUNT (AUTO) 13.6 K/uL (4.8-10.8)
--- NOTE | 2018-12-23 10:33 | NUR ---
pt returned from ct
[2018-12-23 10:37] LABS: ACETONE, SERUM NEGATIVE (NEGATIVE)
--- NOTE | 2018-12-23 10:45 | NUR ---
AVELAR CATH PLACED 16 BELGIAN, PT TOLERATED WELL
[2018-12-23 10:46] LABS: ALBUMIN 3.2 g/dL (3.4-5.0); ANION GAP 8.8 (8-16); ASPARTATE AMINOTRANSFERASE 17 U/L (15-37); CHLORIDE 95 mmol/L (98-107); CREATININE 0.7 mg/dL (0.6-1.3); GFR ARICAN-AMERICAN 108 mL/min (>90); GLUCOSE 121 mg/dL (74-106); LIPASE 55 U/L (73-393); SODIUM SERUM 133 mmol/L (136-145); TOTAL BILIRUBIN 0.5 mg/dL (0.0-1.0); UREA NITROGEN, BLOOD 13 mg/dL (7-18)
[2018-12-23 10:50] LABS: POTASSIUM 2.8 mmol/L (3.5-5.1)
[2018-12-23 10:51] LABS: AMYLASE 43 U/L (25-115); URIC ACID 3.3 mg/dL (2.6-7.2)
[2018-12-23] MEDS ORDERED: KCL 20 MEQ/WATER INJ PREMIX 100 ML IV ONE (11:00)
[2018-12-23] MEDS ORDERED: MAG SULF 2000 MG/WATER PREMIX 50 ML IV ONE (11:00)
[2018-12-23 11:01] LABS: PROTHROMBIN TIME 9.8 secs (10.8-13.4)
[2018-12-23 11:17] LABS: GAMMA GLUTAMYL TRANSFERASE 67 U/L (7-51)
--- NOTE | 2018-12-23 11:24 | NUR ---
VSS AT THIS TIME, AA0X4, PT SLEEPING IN BED
--- NOTE | 2018-12-23 11:38 | NUR ---
PT TOLERATING POTASSIUM WELL
[2018-12-23] MEDS ORDERED: ACETAMINOPHEN 325 MG TAB PO PRN ×2 (12:55→15:10)
[2018-12-23] MEDS ORDERED: HYDROcodone/APAP 7.5/325 MG 1 TAB PO PRN (12:55)
[2018-12-23] MEDS ORDERED: ONDANSETRON 4 MG/2 ML VIAL IVP PRN (12:55)
[2018-12-23 13:00] LABS: APPEARANCE,URINE CLEAR (CLEAR); BILIRUBIN,URINE NEGATIVE (NEGATIVE); BLOOD, URINE NEGATIVE (NEGATIVE); COLOR,URINE DARK YELLOW (YELLOW); LEUKOCYTE ESTERASE ,URINE NEGATIVE (NEGATIVE); NITRITE, URINE NEGATIVE (NEGATIVE); UGLUCOSE NEGATIVE (NEGATIVE)
--- NOTE | 2018-12-23 13:15 | NUR ---
PT ADMITTED TO ROOM 127 B, ARRIVED BY LEMUEL FROM ER. PT TRANSFERRED FROM [facility] TO BED BY 4 PERSON TOTAL ASSIST. REPORT RECEIVED FROM ER NURSE DELANEY. PT AOX4, VERBAL. RIGHT AC IV INTACT WITH ON GOING MAG RIDER. COLOSTOMY BAG INTACT AND EMPTY. AVELAR CATHETER INTACT AND DRAINING CLEAR, DARK ADAMARIS URINE. MEDICAL HX PROVIDED BY PT. PT ORIENTATED TO ROOM AND UNIT. VERBALIZES UNDERSTANDING.
--- NOTE | 2018-12-23 13:26 | NUR ---
Pt transferred to Tele via BED WITH BRITTANY BALTAZAR .
--- NOTE | 2018-12-23 13:35 | NUR ---
Patient will be admitted to care of [facility]. Admited to TELE. Will go to room 127B . Belongings list completed. Report to TRAMAINE SOTO.
--- NOTE | 2018-12-23 13:57 | NUR ---
ZOFRAN GIVEN FOR C/O NAUSEA
[2018-12-23 14:00] VITALS: BP 117/64
[2018-12-23] MEDS ORDERED: MAGNESIUM CITRATE 300 ML BTL PO SCH (14:08)
[2018-12-23] MEDS ORDERED: SODIUM PHOSPHATE 118 ML ENEM RC SCH (14:09)
[2018-12-23] MEDS ORDERED: MEDICATION REC. PHARMACY CONS. 1 EA MISC MC PRN (14:10)
--- NOTE | 2018-12-23 14:58 | NUR ---
ZOFRAN REASSESSMENT, PT NO C/O OF NAUSEA
[2018-12-23] MEDS ORDERED: SIMETHICONE 80 MG TAB.CHEW PO PRN (15:10)
--- NOTE | 2018-12-23 15:10 | NUR ---
[place] 7.5/325mg administered po for c/o pain. Med scanned but unable to save med in eMAR d/t new order to d/c few minutes after pt has swallowed med.
[2018-12-23] MEDS ORDERED: HYDROcodone/APAP 10/325 MG 1 TAB TAB PO PRN (15:15)
[2018-12-23] MEDS ORDERED: DEXTROSE 50% 50 ML SYR IVP PRN (15:20)
[2018-12-23] MEDS ORDERED: INSULIN LISPRO SLIDING SCALE 100 UNITS/ML VIAL SUBQ PRN (15:20)
[2018-12-23] MEDS ORDERED: ALBUTEROL SULFATE/IPRATROPIU 3 ML SOL IH PRN (15:20)
[2018-12-23 15:57] LABS: PROTHROMBIN TIME 9.6 secs (10.8-13.4)
[2018-12-23 16:00] VITALS: BP 135/57
[2018-12-23] MEDS: POTASSIUM CHLORIDE IV SCH (16:00)
[2018-12-23] MEDS ORDERED: POTASSIUM CHLORIDE 40 MEQ, LIDOCAINE MPF 1% - 5 mL VIAL 25 MG in NACL 0.9% 250 ML IV SCH (16:00)
[2018-12-23] MEDS: DEXT 5% IV SCH (16:00)
[2018-12-23] MEDS: NACL 0.9% IV SCH (16:00)
[2018-12-23 16:07] LABS: FREE T4 (FREE THYROXINE) 1.21 ng/dL (0.76-1.46); PHOSPHORUS 4.8 mg/dL (2.5-4.9)
[2018-12-23] MEDS: POLYETHYLENE GLYCOL 17 GM/PKT PO SCH ×2 (16:35→20:41)
[2018-12-23] MEDS: SENNA 8.6 MG TAB PO SCH ×2 (16:35→20:41)
[2018-12-23] MEDS: BLOOD GLUCOSE MONITORING 1 DEV DEV FS SCH ×2 (16:49→20:38)
--- NOTE | 2018-12-23 16:50 | NUR ---
Initiated NS 100ml bolus IV at this time. In-house pharmacy closed. Called [facility] for Diltiazem med override. Pt currently awake in bed, no signs of distress, respirations even & nonlabored. Call light within reach.
[2018-12-23] MEDS ORDERED: DILTIAZEM 25 MG/5 ML VIAL IVP ONE ×2 (17:30→21:30)
--- NOTE | 2018-12-23 17:40 | NUR ---
Lula received from [facility] eaglehousehold coordinator. 10mg/2ml administered from 25mg/5ml bottle of Diltiazem HCl. Pt awake, verbal, HR 135-140/min via tele monitor. Will cont to monitor.
[2018-12-23] MEDS: MORPHINE SULFATE 4 MG/ML SYR IVP PRN ×2 (17:51→23:33)
[2018-12-23] MEDS ORDERED: DILTIAZEM 25 MG/5 ML VIAL IVP SCH (18:00)
[2018-12-23] MEDS ORDERED: NACL 0.9% 1,000 ML IV SCH (18:00)
--- NOTE | 2018-12-23 19:30 | NUR ---
RECEIVED REPORT TRAMAINE RN DAYSHIFT NURSE AT BEDSIDE FOR CONTINUITY OF CARE, PT IN STABLE CONDITION.
--- NOTE | 2018-12-23 19:30 | NUR ---
Bedside report given to pm nurse Mariama.
--- NOTE | 2018-12-23 20:00 | NUR ---
PT IN BED HOB UP 45% AND ALL FALLS PRECAUTIONS IN PLACE. PT IS AOX3, SKIN INTACT , SHE DOES HAVE OSTOMY AND IV SITE RAC 18G RUNNING N/S AT 60. IV SITE INTACT AND FLUSHED PATENT PT ALSO HAS AVELAR CATHETER DRAINING ADAMARIS URINE. PT ABDOMEN IS VERY LARGE AND DISTENDED. ABDOMEN FIRM BUT NOT RIDGED. PT HAS NO C/O VOICED AT THIS TIME. CALL FLORES IN REACH. AND ALL CONTACT PRECAUTIONS OBSERVED FOR FOR ESBL AND VRE OF URINE.
[2018-12-23] MEDS: DOCUSATE SODIUM 100 MG GELCAP PO SCH (20:40)
[2018-12-23] MEDS: LACTULOSE 20 GM/30 ML UDC PO SCH (20:40)
[2018-12-23] MEDS: GABAPENTIN 300 MG CAP PO SCH (20:41)
[2018-12-23] MEDS: PROMETHAZINE 25 MG SUPP RC PRN (20:43)
[2018-12-23] MEDS ORDERED: DOCUSATE SODIUM 100 MG GELCAP PO SCH (21:00)
--- NOTE | 2018-12-23 21:00 | NUR ---
PT IN BED WITH ALL FALLS PRECAUTIONS IN PLACE AND ALL CONTRACT PRECAUTIONS OBSERVED. PT C/O NAUSEA AND WAS GIVEN PHENERGAN SUPPOSITORY. PT GIVEN ALL DUE MEDS. WILL CONTINUE TO MONITOR PT FOR INCREASED HEART RATE.
[2018-12-23] MEDS: LORazepam 1 MG TAB PO SCH (21:06)
[2018-12-23] MEDS: OXcarbazepine 150 MG TAB PO SCH (21:07)
[2018-12-23] MEDS ORDERED: KCL 20 MEQ/WATER INJ PREMIX 200 ML IV ONE (21:44)
--- NOTE | 2018-12-23 22:00 | NUR ---
MD MCCONNELL MADE AWARE THAT PT HEART RATE REMAINS ELEVATED. MD MCCONNELL ORDERED ANOTHER 10MG OF CARDIZEM IVP WILL CONTINUE TO MONITOR HEART RATE AND UPDATE MD. PT HAS NOT VOMITED THIS SHIFT . POSITIVE EFFECT OF PRN SUPPOSITORY PHENERGAN.
--- NOTE | 2018-12-23 22:45 | NUR ---
PT HEART RATE CONTINUES TO BE ELEVATED AT 129. DR. MCCONNELL MADE AWARE AND SAID THAT HE WILL DEFER TO NURSE DISCHARGE PLANNER, DR. RM CONSULT PENDING. PT IS ASYMPTOMATIC AND HAS NO C/O OF CHEST PAIN. WILL CONTINUE TO MONITOR V/S. PT HAS NOT HAD A BM YET.
--- NOTE | 2018-12-23 23:30 | NUR ---
PT C/O PAIN IN ABDOMEN AND HEAD ACHE. PT GIVEN IVP MORPHINE PRN ORDERED. WILL CONTINUE TO MONITOR FOR PAIN AND ST.
[2018-12-24] VITALS: BP 118/62
--- NOTE | 2018-12-24 00:15 | NUR ---
PT IN BED ALL FALLS AND CONTACT PRECAUTIONS IN PLACE. PT WAS REPOSITED REQUESTED NO BM NOTED YET. PT HAS NOT VOMITED THIS SHIFT. V/S FOLLOWS T 99.3 P 130 R 18 B/P 131/71 02 95% ON ROOM AIR. PT HAS NO C/O VOICED AT THIS TIME AND ALL REQUESTED NEEDS ATTENDED BY STAFF.
[2018-12-24 02:41] VITALS: BP 120/67
--- NOTE | 2018-12-24 04:15 | NUR ---
PT IN BED , C/O NAUSEA GIVEN PHENERGAN SUPPOSITORY NO VOMITING NOTED . ALL FALLS AND CONTACT PRECAUTIONS IN PLACE V/S FOLLOWS T 97.9 P 123 R 18 B/P 134/86 02 93% ON ROOM AIR. NO BM NOTED.
[2018-12-24] MEDS: PROMETHAZINE 25 MG SUPP RC PRN ×3 (04:35→16:47)
[2018-12-24] MEDS: MORPHINE SULFATE 4 MG/ML SYR IVP PRN ×3 (05:39→18:37)
[2018-12-24] MEDS: BLOOD GLUCOSE MONITORING 1 DEV DEV FS SCH ×4 (05:46→21:00)
--- NOTE | 2018-12-24 07:20 | NUR ---
RECEIVED REPORT FROM HECTOR REED AT BEDSIDE FOR CONTINUITY OF CARE, PT IN STABLE CONDITION. Addendum: 12/24/18 at 0803 by Mariama Ryan RN GAVE REPORT TO HECTOR REED.
--- NOTE | 2018-12-24 07:35 | NUR ---
RECEIVED REPORT FROM PM NURSE AT BEDSIDE. PT LYING ON HER BED COMFORTABLY. PT HAS IVF INFISUING WELL WITH POTASSIUM MIXED 30 MEQ. IV ACCESS AT RT AC 20 G. SKIN IS INTACT. PT AOX4, INTRODUCED SELF. ABLE TO COMMUNICATE WELL. ALL SAFETY MEASURE IN PLACE. PT ON CONTACT PRECAUTION , ESBL AND VRE IN URINE. PLACE CALL LIGHT WITHIN PT REACH. WILL CONTINUE TO MONITOR PT.
[2018-12-24 08:00] VITALS: BP 123/70
[2018-12-24 08:36] LABS: ANION GAP 11.2 (8-16); CARBON DIOXIDE 31.4 mmol/L (21-32); CREATININE 0.7 mg/dL (0.6-1.3)
[2018-12-24 08:46] LABS: PHOSPHORUS 3.2 mg/dL (2.5-4.9)
[2018-12-24 08:55] LABS: BASOPHILS # (AUTO) 0.2 K/uL (0.00-0.22); BASOPHILS % (AUTO) 1.4 % (0.0-2.0); EOSINOPHILS # (AUTO) 0.4 K/uL (0-0.4); EOSINOPHILS % (AUTO) 2.9 % (0.0-4.0); HEMOGLOBIN 11.3 g/dL (12.0-16.0); LYMPHOCYTES % (AUTO) 15.7 % (20.5-51.1); MEAN CORPUSCULAR HEMOGLOBIN 24 pg (27-31); MEAN CORPUSCULAR HGB CONC 32 g/dL (33-37); MEAN CORPUSCULAR VOLUME 75.1 fL (80-94); MONOCYTES # (AUTO) 1.1 K/uL (0.8-1.0); MONOCYTES % (AUTO) 8.8 % (1.7-9.3); NEUTROPHILS # (AUTO) 8.8 K/uL (1.8-7.7); NEUTROPHILS % (AUTO) 71.2 % (42.2-75.2); PLATELET COUNT (AUTO) 357 K/uL (140-450); RED BLOOD CELL COUNT(AUTO) 4.79 MIL/uL (4.20-5.40); RED CELL DISTRIBUTION WIDTH 26.1 % (11.6-13.7); WHITE BLOOD COUNT (AUTO) 12.4 K/uL (4.8-10.8)
[2018-12-24] MEDS ORDERED: LURASIDONE HCL 80 MG PO SCH (09:00)
[2018-12-24] MEDS ORDERED: FERROUS SULFATE 325 MG TABEC PO SCH (09:00)
[2018-12-24 09:10] LABS: MAGNESIUM 2.7 mg/dL (1.8-2.4)
[2018-12-24 09:20] LABS: POTASSIUM 2.6 mmol/L (3.5-5.1)
[2018-12-24] MEDS: ASCORBIC ACID 500 MG TAB PO SCH (09:50)
[2018-12-24] MEDS: OXcarbazepine 150 MG TAB PO SCH (09:50)
[2018-12-24] MEDS: SENNA 8.6 MG TAB PO SCH ×4 (09:51→23:29)
[2018-12-24] MEDS: GABAPENTIN 300 MG CAP PO SCH ×2 (09:51→23:29)
[2018-12-24] MEDS: LORazepam 1 MG TAB PO SCH ×2 (09:53→23:28)
[2018-12-24] MEDS: DOCUSATE SODIUM 100 MG GELCAP PO SCH ×2 (09:53→23:28)
[2018-12-24] MEDS: LACTULOSE 20 GM/30 ML UDC PO SCH (09:54)
[2018-12-24] MEDS: POLYETHYLENE GLYCOL 17 GM/PKT PO SCH ×4 (09:55→23:25)
[2018-12-24] MEDS ORDERED: DILTIAZEM 30 MG TAB PO SCH ×2 (10:05→21:00)
[2018-12-24] MEDS: POTASSIUM CHLORIDE IV SCH (10:14)
[2018-12-24] MEDS: NACL 0.9% IV SCH (10:14)
[2018-12-24] MEDS: DEXT 5% IV SCH (10:14)
[2018-12-24] MEDS: HYDROcodone/APAP 10/325 MG 1 TAB TAB PO PRN (10:20)
[2018-12-24] MEDS ORDERED: POTASSIUM CHLORIDE 40 MEQ, LIDOCAINE MPF 1% - 5 mL VIAL 25 MG in NACL 0.9% 250 ML IV SCH (11:00)
[2018-12-24 12:00] VITALS: BP 135/75
--- NOTE | 2018-12-24 12:24 | NUR ---
ADMINISTERED PAIN MEDS TO PT , COMPLAING OF PAIN 04/14. PT LYING ON HER BED. WILL CONTINUE TO MONITOR PT.
[2018-12-24] MEDS ORDERED: MAGNESIUM CITRATE 300 ML BTL PO SCH (12:36)
[2018-12-24] MEDS: POTASSIUM CHL 40 MEQ/ D5-1/2NS 1,000 ML IV SCH ×2 (13:00→17:48)
--- NOTE | 2018-12-24 13:30 | NUR ---
ADMINISTERED MEDS ORDERED. CALL PHARMACY FOR SOAP SUDS ENEMA. NOT FOUND IN THE PIXES. WILL MEDICATE PT WITH ENEMA ONCE AVAILABLE.
[2018-12-24] MEDS: POTASSIUM CHLORIDE 20% 40 MEQ/15 ML UDC GT SCH ×2 (13:38→17:47)
[2018-12-24] MEDS: SIMETHICONE 80 MG TAB.CHEW PO SCH ×2 (13:38→17:46)
--- NOTE | 2018-12-24 15:04 | NUR ---
ADMINISTERED ENEMA ORDERED THROUGH COLOSTOMY TO THE PT. TOLERATED WELL. CHANGED THE COLOSTOMY BAG. STUDENT NURSE HELPED DURING THE PROCESS. ADMINISTERED OTHER LAXATIVES ORDERED . NO SIGN OF DISTRESS NOTED. WILL CONTINUE TO MONITOR PT.
[2018-12-24 16:00] VITALS: BP 148/85
--- NOTE | 2018-12-24 16:18 | NUR ---
CHECKED ON THE PT. CHANGED THE COLOSTOMY BAG AND APPLIED THE NEW ONE. PT ASKING FOR HER PRN NAUSEA MEDS. WILL MEDICATE WITH PRN MEDS ORDERED. WILL CONTINUE TO MONITOR PT.
[2018-12-24] MEDS: SPIRONOLACTONE 25 MG TAB PO SCH (17:46)
[2018-12-24] MEDS: METOCLOPRAMIDE 10 MG/2 ML INJ VIAL IVP SCH ×2 (17:46→23:08)
[2018-12-24 17:51] LABS: ANION GAP 9.9 (8-16); CARBON DIOXIDE 32.8 mmol/L (21-32); CREATININE 0.7 mg/dL (0.6-1.3)
[2018-12-24 17:57] LABS: POTASSIUM 2.7 mmol/L (3.5-5.1)
[2018-12-24] MEDS ORDERED: POTASSIUM CHLORIDE 40 MEQ, LIDOCAINE MPF 1% - 5 mL VIAL 25 MG in NACL 0.9% 250 ML IV ONE (18:05)
[2018-12-24] MEDS ORDERED: POTASSIUM CHLORIDE 10 MEQ TABER PO SCH (19:00)
--- NOTE | 2018-12-24 19:05 | NUR ---
RECEIVED ENDORSEMENT FROM HECTOR RN DAYSHIFT NURSE AT BEDSIDE FOR CONTINUITY OF CARE, PT IN STABLE CONDITION.
--- NOTE | 2018-12-24 19:05 | NUR ---
ENDORSED PT TO PM NURSE. PT IN STABLE CONDITION.
--- NOTE | 2018-12-24 19:50 | NUR ---
GRACIE OBREGON CALLED PRIMARY NURSE INTO PT ROOM BECAUSE PT HAD VOMITED 700MLS OF BLACK COFFEE GROUND EMESIS. PT CLEANED CHANGED AND REPOSITIONED. DR. MCCONNELL, RESIDENT MD MADE AWARE, HE CHECKED CURRENT H&H LABS. PER MD CONTINUE TO MONITOR PT FOR ANYMORE EMESIS IF PT VOMITS MORE BLACK EMESIS , HE WILL ORDER AN NG TUBE WITH SUCTION. PT PLACED ON 2LITERS 02 VIA N/C FOR 02 OF LESS THAN 925 ON ROOM AIR. PT CURRENT V/S ARE FOLLOWS T 97.4 P 150 R 18 B/P140/83 02 91% ON ROOM AIR. PT HAS ALL FALLS AND CONTACT PRECAUTIONS OBSERVED.
[2018-12-24 20:00] VITALS: BP 140/83
[2018-12-24] MEDS ORDERED: SODIUM FERRIC GLUCONATE 125 MG in NACL 0.9% 100 ML IV SCH (20:00)
[2018-12-24] MEDS ORDERED: METOCLOPRAMIDE 10 MG/2 ML INJ VIAL IVP PRN (20:30)
--- NOTE | 2018-12-24 21:00 | NUR ---
PT GIVEN ALL MEDS SCHEDULED AT THIS TIME. NEW ORDER NOTED FOR PRN, IVP REGLAN. NO MORE VOMITING SO FAR THIS SHIFT, BUT PT C/O OF NAUSEA AND IS GIVEN SCHEDULED REGLAN. F/S WAS 173 2 UNITS OF COVERAGE OF HUMALOG WAS GIVEN TO PT. PT NO LONGER ON CONTACT PRECAUTIONS BECAUSE URINE CULTURE CAME BACK NEGATIVE. V/S FOLLOWS T 97.1 P 134 R 18 B/P 127/75 02 95 WITH ROOM AIR. PT COLOSTOMY BAG EMPTIED X2, STOOL IS BROWN, SOFT AND SEMIFORMED.
[2018-12-24] MEDS ORDERED: SODIUM FERRIC GLUCONATE 12.5 MG/ML AMP IV ONE (22:55)
[2018-12-24] MEDS: KCL 20 MEQ/WATER INJ PREMIX 100 ML IV SCH ×2 (23:00→23:05)
--- NOTE | 2018-12-24 23:45 | NUR ---
PT IN BED V/S FOLLOWS T 97.1 P 134 R 18 B/P 127/75 02 95%.
[2018-12-25] VITALS: BP 127/75
[2018-12-25] MEDS: PROMETHAZINE 25 MG SUPP RC PRN ×2 (01:01→20:42)
[2018-12-25] MEDS: MORPHINE SULFATE 4 MG/ML SYR IVP PRN ×2 (01:04→06:14)
[2018-12-25] MEDS: POTASSIUM CHL 40 MEQ/ D5-1/2NS 1,000 ML IV SCH ×2 (01:30→14:08)
--- NOTE | 2018-12-25 01:30 | NUR ---
PT IN BED ALL FALLS PRECAUTIONS IN PLACE. PT NO LONGER ON CONTACT PRECAUTION S DUE TO NEGATIVE URINE CULTURE. PT C/O PAIN IN ABDOMEN AND NAUSEA WAS GIVEN IVP MORPHINE ORDERED AND PHENERGAN SUPPOSITORY. PT SOON AFTERWARD HAD COLOSTOMY BAG BURST AND HAD A MASSIVE LIQUID BOWEL MOVEMENT. PT CLEANED UP CHANGED AND REPOSITIONED. PT ABDOMEN FEELS SOFTER TO TOUCH.
--- NOTE | 2018-12-25 03:30 | NUR ---
PT COLOSTOMY BAG EMPTIED X2 STOOL LOOSE WITH SEMI FORMED AREAS. ALL FALLS PRECAUTIONS IN PLACE.
[2018-12-25 04:00] VITALS: BP 121/74
[2018-12-25] MEDS: METOCLOPRAMIDE 10 MG/2 ML INJ VIAL IVP SCH (05:15)
[2018-12-25] MEDS: BLOOD GLUCOSE MONITORING 1 DEV DEV FS SCH ×4 (05:17→20:36)
--- NOTE | 2018-12-25 06:15 | NUR ---
PT C/O OF SEVER PAIN IN ABDOMEN 03/14 GIVEN IVP MORPHINE ORDERED.
--- NOTE | 2018-12-25 07:30 | NUR ---
ENDORSED CARE TO AM SHIFT, PT IN STABLE CONDITION.
--- NOTE | 2018-12-25 07:40 | NUR ---
REPORT RECIEVED FROM NIGHT NURSE JORDAN. PT ASLEEP EASILY AROUSABLE TO A/O ABLE TO COMMUNICATE NEEDS. NO S/S OF ACUTE DISTRESS NOTED, PERSONAL ITEMS WITHIN REACH,CALL LIGHT AND SAFETY MEASURES IN PLACE, WILL CONTINUE TO MONITOR.
[2018-12-25 07:59] LABS: BASOPHILS # (AUTO) 0.1 K/uL (0.00-0.22); BASOPHILS % (AUTO) 0.8 % (0.0-2.0); EOSINOPHILS % (AUTO) 0.2 % (0.0-4.0); HEMATOCRIT 33.6 % (36-48); HEMOGLOBIN 10.5 g/dL (12.0-16.0); LYMPHOCYTES # (AUTO) 1.8 K/uL (2.5-16.5); LYMPHOCYTES % (AUTO) 14.1 % (20.5-51.1); MEAN CORPUSCULAR HEMOGLOBIN 24 pg (27-31); MEAN CORPUSCULAR HGB CONC 31 g/dL (33-37); MEAN CORPUSCULAR VOLUME 75.5 fL (80-94); MONOCYTES # (AUTO) 1.1 K/uL (0.8-1.0); MONOCYTES % (AUTO) 8.7 % (1.7-9.3); NEUTROPHILS # (AUTO) 9.8 K/uL (1.8-7.7); NEUTROPHILS % (AUTO) 76.2 % (42.2-75.2); PLATELET COUNT (AUTO) 301 K/uL (140-450); RED BLOOD CELL COUNT(AUTO) 4.46 MIL/uL (4.20-5.40); RED CELL DISTRIBUTION WIDTH 25.1 % (11.6-13.7); WHITE BLOOD COUNT (AUTO) 12.8 K/uL (4.8-10.8)
[2018-12-25 08:00] VITALS: BP 106/60
[2018-12-25 08:12] LABS: MAGNESIUM 2.7 mg/dL (1.8-2.4); PHOSPHORUS 2.1 mg/dL (2.5-4.9)
[2018-12-25 08:33] LABS: CARBON DIOXIDE 32.7 mmol/L (21-32); CREATININE 0.6 mg/dL (0.6-1.3); POTASSIUM 3.7 mmol/L (3.5-5.1)
--- NOTE | 2018-12-25 08:40 | NUR ---
PT A/O ABLE TO COMMUNICATE NEEDS, COLOSTOMY DISLODGED, PERIOSTOMAL SKIN CLEANSED, SKIN JADE APPLIED, NEW APPLIANCE BAG APPLIED, AM CARE PROVIDED, TOLERATED WELL. PERSONAL ITEMS WITHIN REACH,CALL LIGHT AND SAFETY MEASURES IN PLACE, WILL CONTINUE TO MONITOR.
--- NOTE | 2018-12-25 08:42 | NUR ---
PATIENT HAS BEEN SCREENED AND CATEGORIZED HIGH NUTRITION RISK. PATIENT WILL BE SEEN WITHIN 1-2 DAYS OF ADMISSION. 12/25/[address]
[2018-12-25] MEDS ORDERED: MORPHINE SULFATE 2 MG/ML SYR IVP PRN (09:29)
[2018-12-25] MEDS: SPIRONOLACTONE 25 MG TAB PO SCH (10:04)
[2018-12-25] MEDS: POTASSIUM CHLORIDE 20% 40 MEQ/15 ML UDC GT SCH (10:04)
[2018-12-25] MEDS: SIMETHICONE 80 MG TAB.CHEW PO SCH (10:05)
[2018-12-25] MEDS: GABAPENTIN 300 MG CAP PO SCH ×2 (10:05→20:38)
[2018-12-25] MEDS: LORazepam 1 MG TAB PO SCH ×2 (10:05→20:37)
[2018-12-25] MEDS: POLYETHYLENE GLYCOL 17 GM/PKT PO SCH ×4 (10:05→20:38)
[2018-12-25] MEDS: DOCUSATE SODIUM 100 MG GELCAP PO SCH (10:05)
[2018-12-25] MEDS: ASCORBIC ACID 500 MG TAB PO SCH (10:06)
[2018-12-25] MEDS: SENNA 8.6 MG TAB PO SCH ×3 (10:06→17:00)
--- NOTE | 2018-12-25 10:30 | NUR ---
PT A/O ABLE TO COMMUNICATE NEEDS, COLOSTOMY LEAKING, PERIOSTOMAL SKIN CLEANSED, SKIN JADE APPLIED, NEW APPLIANCE BAG APPLIED, SIMRAN CARE PROVIDED, TOLERATED WELL. PT NOTED TO HAVE BLANCHABLE REDNESS TO COCCYX, OPTIFOAM DRESSING APPLIED PROPHYLAXIS. NO S/S OF ACUTE DISTRESS NOTED, PERSONAL ITEMS WITHIN REACH,CALL LIGHT AND SAFETY MEASURES IN PLACE, WILL CONTINUE TO MONITOR.
[2018-12-25] MEDS: METOCLOPRAMIDE 10 MG TAB PO SCH ×2 (11:48→17:07)
[2018-12-25 12:00] VITALS: BP 103/58
[2018-12-25] MEDS ORDERED: SODIUM PHOS / POTASSIUM PHOS 1 PKT PDR PO SCH (12:00)
--- NOTE | 2018-12-25 12:30 | NUR ---
PT A/O ABLE TO COMMUNICATE NEEDS, COLOSTOMY BAG IN PLACE, PT C/O SPILLING LIQUID ONTO GOWN AND BEDDING, PT CLEANED UP, NEW GOWN AND LINEN APPLIED. PT TOLERATING DIET, DENIES N/V. NO S/S OF ACUTE DISTRESS NOTED, PERSONAL ITEMS WITHIN REACH,CALL LIGHT AND SAFETY MEASURES IN PLACE, WILL CONTINUE TO MONITOR.
--- NOTE | 2018-12-25 14:30 | NUR ---
PT A/O ABLE TO COMMUNICATE NEEDS, NO S/S OF ACUTE DISTRESS NOTED, PERSONAL ITEMS WITHIN REACH,CALL LIGHT AND SAFETY MEASURES IN PLACE, WILL CONTINUE TO MONITOR.
--- NOTE | 2018-12-25 15:30 | NUR ---
12/25/18 RD INITIAL ASSESSMENT COMPLETED PLEASE REFER TO NUTRITION ASSESSMENT UNDER CARE ACTIVITY FOR ESTIMATED NUTRITIONAL NEEDS. 1. CONTINUE FULL LIQUID DIET MEDICALLY NECESSARY 2. ADVANCE DIET TO CARDIAC LOW FIBER DIET WHEN PT IS MEDICALLY STABLE 3. RD TO FOLLOW-UP 3-5 DAYS, MODERATE RISK ABDIRASHID MACK, RD
[2018-12-25 16:00] VITALS: BP 117/63
[2018-12-25] MEDS ORDERED: SODIUM FERRIC GLUCONATE 125 MG in NACL 0.9% 100 ML IV SCH (17:00)
--- NOTE | 2018-12-25 17:30 | NUR ---
PT SLEEPING AT THIS TIME, AROUSABLE TO TACTILE STIMULI, BUT RESISTANT TO CARE, UNABLE TO ADMINISTER MIRALAX AND SENNA AT THIS TIME. PERSONAL ITEMS WITHIN REACH,CALL LIGHT AND SAFETY MEASURES IN PLACE, WILL CONTINUE TO MONITOR.
--- NOTE | 2018-12-25 18:00 | NUR ---
PT SLEEPING BUT AROUSABLE, CONTINUES TO REFUSE SENNA AND MIRALAX. NO S/S OF ACUTE DISTRESS NOTED, PERSONAL ITEMS WITHIN REACH,CALL LIGHT AND SAFETY MEASURES IN PLACE, WILL CONTINUE TO MONITOR.
--- NOTE | 2018-12-25 19:15 | NUR ---
REPORT GIVEN TO NIGHT NURSE JORDAN. NO S/S OF ACUTE DISTRESS NOTED, PERSONAL ITEMS WITHIN REACH,CALL LIGHT AND SAFETY MEASURES IN PLACE.
--- NOTE | 2018-12-25 19:15 | NUR ---
RECEIVED REPORT FROM AM SHIFT AT BEDSIDE FOR CONTINUITY OF CARE, PT IN STABLE CONDITION.
[2018-12-25 20:00] VITALS: BP 108/52
[2018-12-25] MEDS: AMITRIPTYLINE 25 MG TAB PO SCH (20:38)
[2018-12-25] MEDS: HYDROcodone/APAP 10/325 MG 1 TAB TAB PO PRN (20:41)
[2018-12-25] MEDS ORDERED: MAGNESIUM CITRATE 300 ML BTL PO SCH (21:00)
--- NOTE | 2018-12-25 21:00 | NUR ---
PT IN BED WITH ALL FALLS PRECAUTIONS IN PLACE. HOB UP 45%. IV SITE 20 G IN LEFT AC INTACT AND FLUSHED PATENT IT IS RUNNING D5 1/2 N/S AT 40 MEQ AT 50MLS/HR/. PT GIVEN ALL SCHEDULED MEDS AT THIS TIME. PT F/S 133 NO COVERAGE OF HUMALOG REQUIRED. PT REQUESTED PHENERGAN SUPPOSITORY FOR C/O OF NAUSEA. PT ALSO REQUESTED PAIN MEDICATION FOR MODERATE PAIN IN ABDOMEN 10 GIVEN NORCO 10/325 MG PO/PRN. PT ALSO GIVEN SCHEDULED MEDS DUE AT THIS TIME. PT COLOSTOMY BAG IN PLACE AND EMPTIED 800MLS OF DARK LIQUID STOOL. F/C INTACT AND DRAINING LIGHT ADAMARIS URINE. PT TURNED AND REPOSITIONED. CALL REQUESTED NEEDS ATTENDED AND CALL MARK I JAG, WILL CONTINUE TO MONITOR PT FOR RELIEF OF NAUSEA AND PAIN.
[2018-12-26] VITALS: BP 106/57
--- NOTE | 2018-12-26 00:15 | NUR ---
PT IN BED RESTING WITH EYES CLOSED BUT AROUSABLE TO NAME AND LIGHT TOUCH. ALL FALLS PRECAUTIONS OBSERVED. PT DENIES PAIN AT THIS TIME IV SITE ON R AC RUINING D51/2 NS WITH 40MEQ RUNNING ORDERED. PT DECLINED TO TURN. EMPTIED ANOTHER 300MLS OF LIQUID STOOL FROM OSTOMY BAG. V/S FOLLOWS T 98.0 P 113 R 18 B/P 106/57 02 96% ON ROOM AIR.ALL REQUESTED NEEDS ATTENDED. CALL FLORES AND TRAY TABLE IN PLACE.
--- NOTE | 2018-12-26 02:00 | NUR ---
PT SLEEPING ALL FALLS PRECAUTIONS IN PLACE IV RUNNING ORDERED.
[2018-12-26 04:00] VITALS: BP 93/40
[2018-12-26] MEDS: PROMETHAZINE 25 MG SUPP RC PRN ×3 (04:01→21:41)
[2018-12-26] MEDS: HYDROcodone/APAP 10/325 MG 1 TAB TAB PO PRN ×2 (04:50→13:59)
--- NOTE | 2018-12-26 04:58 | NUR ---
PT IN BED OSTOMY BAG EMPTIED AND ANOTHER 300MLS OF DARK LIQUID BM REMOVED. BAG WAS LEAKING, OSTOMY BAG REPLACED, PT TURNED AND CHANGED. PT PREFERS TO BE ON HER BACK AT THIS TIME. PT C/O MODERATE PAIN IN ABDOMEN AND WAS GIVEN 1 TAB NORCO PO/PRN. PT ALSO C/O OF NAUSEA AND WAS GIVEN PRN PHENERGAN SUPPOSITORY. V/S FOLLOWS T 98.3 P 111 R 18 B/P 93/40 02 99% ON ROOM AIR. IV SITE INTACT AND RUNNING ORDERED. ALL FALLS PRECAUTIONS OBSERVED.
[2018-12-26 06:25] LABS: CARBON DIOXIDE 32.7 mmol/L (21-32); CREATININE 0.7 mg/dL (0.6-1.3)
[2018-12-26 06:27] LABS: MAGNESIUM 2.1 mg/dL (1.8-2.4); POTASSIUM 2.7 mmol/L (3.5-5.1)
--- NOTE | 2018-12-26 06:30 | NUR ---
RECEIVED CALL FORM BERNADINE IN LAB TO REPORT CRITICAL LAB OF POTASSIUM 2.7. DR. DIAZ PART OF THE RESIDENT GROUP MADE AWARE HE SAID HE WILL TELL PRIMARY DURING ROUNDS. WILL . PT F/S IN 101 NO COVERAGE NEEDED. ALSO WILL ENDORSE LAB VALUE TO AM SHIFT TO FOLLOW UP WITH ORDERS. PT GIVEN AM SCHEDULED REGLAN.
[2018-12-26 06:37] LABS: BASOPHILS # (AUTO) 0.1 K/uL (0.00-0.22); BASOPHILS % (AUTO) 1.8 % (0.0-2.0); EOSINOPHILS # (AUTO) 0.5 K/uL (0-0.4); EOSINOPHILS % (AUTO) 6.3 % (0.0-4.0); HEMATOCRIT 30.4 % (36-48); HEMOGLOBIN 9.7 g/dL (12.0-16.0); LYMPHOCYTES # (AUTO) 2.5 K/uL (2.5-16.5); LYMPHOCYTES % (AUTO) 33.7 % (20.5-51.1); MEAN CORPUSCULAR HEMOGLOBIN 25 pg (27-31); MEAN CORPUSCULAR HGB CONC 32 g/dL (33-37); MONOCYTES # (AUTO) 0.6 K/uL (0.8-1.0); MONOCYTES % (AUTO) 7.8 % (1.7-9.3); NEUTROPHILS # (AUTO) 3.7 K/uL (1.8-7.7); NEUTROPHILS % (AUTO) 50.4 % (42.2-75.2); PLATELET COUNT (AUTO) 286 K/uL (140-450); RED BLOOD CELL COUNT(AUTO) 3.95 MIL/uL (4.20-5.40); RED CELL DISTRIBUTION WIDTH 25.8 % (11.6-13.7); WHITE BLOOD COUNT (AUTO) 7.3 K/uL (4.8-10.8)
[2018-12-26] MEDS: METOCLOPRAMIDE 10 MG TAB PO SCH ×3 (06:46→17:01)
[2018-12-26] MEDS: BLOOD GLUCOSE MONITORING 1 DEV DEV FS SCH ×4 (06:49→21:48)
--- NOTE | 2018-12-26 07:16 | NUR ---
CARE TO BE ENDORSED TO NEXT SHIFT, PT IN STABLE CONDITION.
--- NOTE | 2018-12-26 07:18 | NUR ---
RECEIVED BEDSIDE REPORT FROM TALENT ACQUISITION LEAD NURSE FOR CONTINUITY OF CARE. PATIENT IS AWAKE AND RESTING ON BED AT THIS TIME. PATIENT IS AOX3, TO NAME, PLACE AND TIME. RESPIRATION EVEN AND UNLABORED. ON RA. NO SIGNS OF DISTRESS NOTED. IV ON LAC 18, INTACT AND PATENT, INFUSING PER MD ORDER. BLACK SCAB ON NOSE AND REDNESS ON SACRAL NOTED, OPTI FOAM APPLIED ON SACRAL REGION, CLEAN AND DRY, OTHERWISE, SKIN INTACT AND CLEAN. OSTOMY BAG NOTED AND 1/[address], AND DRAINING YELLOW URINE. PATIENT IS BEDREST. TELE MONITOR ATTACHED. FALL PRECAUTION INITIALED. DISCUSSED PLAN OF CARE WITH PATIENT AND PATIENT VERBALIZED UNDERSTANDING. BED IN LOW POSITION AND CALL LIGHT WITHIN REACH. INSTRUCTED PATIENT TO USE THE CALL LIGHT FOR ANY ASSISTANCE AND PATIENT WAS AWARE.
[2018-12-26 08:00] VITALS: BP 115/58
[2018-12-26] MEDS ORDERED: POTASSIUM CHLORIDE 40 MEQ, LIDOCAINE 1% 25 MG in NACL 0.9% 250 ML IV SCH ×2 (08:30→14:30)
[2018-12-26] MEDS ORDERED: POTASSIUM CHLORIDE 20% 40 MEQ/15 ML UDC GT SCH ×2 (09:00→17:00)
[2018-12-26] MEDS: SENNA 8.6 MG TAB PO SCH (09:15)
[2018-12-26] MEDS: GABAPENTIN 300 MG CAP PO SCH (09:15)
[2018-12-26] MEDS: LORazepam 1 MG TAB PO SCH (09:15)
[2018-12-26] MEDS: ASCORBIC ACID 500 MG TAB PO SCH (09:15)
[2018-12-26] MEDS: POLYETHYLENE GLYCOL 17 GM/PKT PO SCH (09:16)
--- NOTE | 2018-12-26 09:31 | NUR ---
ADMINISTERED MEDS PER MD ORDER. PATIENT'S POTASSIUM LEVEL IS 2.7 FROM AM LAB, ADMINISTERED POTASSIUM VIA IVP. PATIENT TOLERATED WELL. NO SIGNS OF DISTRESS NOTED. AVELAR IN PLACE AND OSTOMY BAG IN PLACE. SAFETY MEASURES IN PLACE. TELE MONITOR ATTACHED.
[2018-12-26] MEDS ORDERED: SPIRONOLACTONE 25 MG TAB PO SCH (10:09)
--- NOTE | 2018-12-26 11:15 | NUR ---
PATIENT IS RESTING AND WATCHING TV ON BED. NO SIGNS OF DISTRESS NOTED. SAFETY MEASURES IN PLACE. TELE MONITOR ATTACHED.
[2018-12-26 12:00] VITALS: BP 110/58
[2018-12-26] MEDS: POTASSIUM CHL 40 MEQ/ D5-1/2NS 1,000 ML IV SCH (12:28)
--- NOTE | 2018-12-26 13:20 | NUR ---
PATIENT IS RESTING ON BED AND WATCHING TV. NO SIGNS OF DISTRESS NOTED. SAFETY MEASURES IN PLACE. TELE MONITOR ATTACHED.
[2018-12-26 13:44] LABS: ANION GAP 9.5 (8-16); CARBON DIOXIDE 30.2 mmol/L (21-32); CREATININE 0.8 mg/dL (0.6-1.3)
[2018-12-26 13:46] LABS: POTASSIUM 2.7 mmol/L (3.5-5.1)
--- NOTE | 2018-12-26 13:50 | NUR ---
RECEIVED CRITICAL LAB VALUE FOR POTASSIUM 2.[address] GRUBBS. DR GRUBBS WAS AWARE OF POTASSIUM LAB VALUE.
[2018-12-26] MEDS ORDERED: POTASSIUM CHLORIDE 10 MEQ TABER PO ONE (14:05)
[2018-12-26] MEDS ORDERED: POTASSIUM CHLORIDE 10 MEQ TABER PO SCH ×2 (14:30→21:00)
--- NOTE | 2018-12-26 15:08 | NUR ---
ADMINISTERED POTASSIUM FOR LOW POTASSIUM LAB VALUE AND ADMINISTERED PRN PHENERGAN, PATIENT TOLERATED WELL. SAFETY MEASURES IN PLACE. TELE MONITOR IN PLACE.
[2018-12-26 16:00] VITALS: BP 108/68
--- NOTE | 2018-12-26 17:04 | NUR ---
ADMINISTERED MEDS PER MD ORDER, PATIENT TOLERATED WELL. PATIENT IS WATCHING TV ON BED. SAFETY MEASURES IN PLACE. TELE MONITOR ATTACHED.
--- NOTE | 2018-12-26 19:15 | NUR ---
IV INFILTRATED. D/C IV AND CANNULA INTACT, MINIMAL BLEEDING AT IV SITE. RESTARTED IV ON LFA 22G, PATENT AND INTACT, INFUSING PER MD ORDER. PATIENT TOLERATED WELL. NO SIGNS OF DISTRESS NOTED. SAFETY MEASURES IN PLACE. TELE MONITOR ATTACHED.
--- NOTE | 2018-12-26 19:30 | NUR ---
ENDORSED PATIENT AT BEDSIDE TO STERILE INSTRUMENT TECHNICIAN NURSE FOR CONTINUITY OF CARE. PATIENT IS IN A STABLE CONDITION.
--- NOTE | 2018-12-26 19:35 | NUR ---
RECEIVED FROM AM RN IN BED AWAKE AND IN A SITTING UP POSITION. ABLE TO VERBALIZE NEEDS WELL. NO SOB. DENIES ANY PAIN. CARE PLANS FOR THE NIGHT DISCUSSED WITH HER. CALL LIGHT WITH IN REACH.
[2018-12-26 21:10] VITALS: BP 102/57
[2018-12-26] MEDS: GABAPENTIN 100 MG CAP PO SCH (21:15)
[2018-12-26] MEDS: LORazepam 0.5 MG TAB PO PRN (21:15)
[2018-12-26] MEDS: AMITRIPTYLINE 25 MG TAB PO SCH (21:15)
[2018-12-26 21:25] LABS: ANION GAP 10.1 (8-16); CARBON DIOXIDE 28.4 mmol/L (21-32); CREATININE 0.7 mg/dL (0.6-1.3); POTASSIUM 3.5 mmol/L (3.5-5.1)
--- NOTE | 2018-12-27 00:50 | NUR ---
PT, SLEEPING AT TH IS TIME. NEEDS ATTENDED TO. PT. TURNED TO SIDES WITH PILLOW SUPPORT TO PRESSURE AREAS. VITALS TAKEN.
[2018-12-27 00:56] VITALS: BP 114/58
[2018-12-27 04:39] VITALS: BP 108/58
[2018-12-27] MEDS: BLOOD GLUCOSE MONITORING 1 DEV DEV FS SCH ×2 (05:10→12:28)
[2018-12-27] MEDS: HYDROcodone/APAP 10/325 MG 1 TAB TAB PO PRN ×2 (05:13→14:19)
[2018-12-27] MEDS: METOCLOPRAMIDE 10 MG TAB PO SCH ×2 (05:13→11:24)
--- NOTE | 2018-12-27 06:52 | NUR ---
KEPT DRY, CLEAN AND COMFORTABLE. TURNED TO SIDES BY ELECTRICAL MAINTENANCE ENGINEER Q 2H WITH PILLOW SUPPORT TO PRESSURE AREAS. WILL ENDORSE TO THE NEXT RN FOR CONTINUITY OF CARE.
--- NOTE | 2018-12-27 07:19 | NUR ---
RECEIVED BEDSIDE REPORT FROM RECEIVING COORDINATOR NURSE FOR CONTINUITY OF CARE. PATIENT IS AWAKE AND RESTING IN BED AT THIS TIME. PATIENT IS AOX3, TO NAME, PLACE AND TIME. RESPIRATION EVEN AND UNLABORED. ON RA. NO SIGNS OF DISTRESS NOTED. IV ON LAC 22, INTACT AND PATENT, INFUSING PER MD ORDER. BLACK SCAB ON NOSE AND REDNESS ON SACRAL NOTED, OPTI FOAM APPLIED ON SACRAL REGION, CLEAN AND DRY, OTHERWISE, SKIN INTACT AND CLEAN. OSTOMY BAG DRAINING TO COLLECTION BAG, NO DRAINAGE CURRENTLY NOTED. AVELAR IN PLACE, AND DRAINING YELLOW URINE. PATIENT IS BEDREST. TELE MONITOR ATTACHED. FALL PRECAUTION INITIALED. DISCUSSED PLAN OF CARE WITH PATIENT AND PATIENT VERBALIZED UNDERSTANDING. BED IN LOW POSITION AND CALL LIGHT WITHIN REACH. INSTRUCTED PATIENT TO USE THE CALL LIGHT FOR ANY ASSISTANCE AND PATIENT WAS AWARE.
[2018-12-27 08:00] VITALS: BP 118/75
[2018-12-27] MEDS ORDERED: POLYETHYLENE GLYCOL 17 GM/PKT PO SCH (09:00)
[2018-12-27] MEDS: LORazepam 0.5 MG TAB PO PRN (09:00)
[2018-12-27] MEDS: POTASSIUM CHLORIDE 10 MEQ TABER PO SCH ×2 (09:00→14:19)
[2018-12-27] MEDS ORDERED: SENNA 8.6 MG TAB PO SCH (09:00)
[2018-12-27] MEDS ORDERED: SPIRONOLACTONE 25 MG TAB PO SCH (09:00)
[2018-12-27] MEDS: ASCORBIC ACID 500 MG TAB PO SCH (09:01)
[2018-12-27] MEDS: GABAPENTIN 100 MG CAP PO SCH (09:02)
--- NOTE | 2018-12-27 09:06 | NUR ---
ADMINISTERED MORNING MEDS TO PT. PT TOLERATED THEM WELL. PT VERBALIZES THAT ALL NEEDS MET AT THIS TIME. WILL CONTINUE TO ROUND FREQUENTLY ON PT. BED IN LOW POSITION, CALL LIGHT WITHIN REACH.
[2018-12-27] MEDS ORDERED: APAP/BUTAL/CAFF 325/50/40 MG 1 TAB PO PRN (10:25)
[2018-12-27] MEDS ORDERED: POLY17PD46 PO (10:31)
[2018-12-27] MEDS ORDERED: LACT10SO11 PO (10:31)
[2018-12-27] MEDS ORDERED: Potassium Chloride 20% GT (10:31)
[2018-12-27] MEDS ORDERED: MAGN1.753 PO (10:31)
[2018-12-27] MEDS ORDERED: SPIR25TA PO (10:31)
[2018-12-27] MEDS ORDERED: SENN-74 PO (10:31)
--- NOTE | 2018-12-27 10:38 | NUR ---
Scaling Machine Operator Note: Per [employer], patient is not on isolation. I faxed patient's medical information to [facility]. Per , patient will return to [facility] as halfway, no skilled needs.
[2018-12-27] MEDS ORDERED: POLY17PD65 PO (10:43)
[2018-12-27] MEDS ORDERED: METO-485 PO (10:43)
[2018-12-27] MEDS ORDERED: ELA25 PO (10:43)
[2018-12-27] MEDS ORDERED: GABA100C PO (10:47)
[2018-12-27 12:00] VITALS: BP 104/63
--- NOTE | 2018-12-27 12:07 | NUR ---
PT RESTING IN BED EATING LUNCH. ALL NEEDS CURRENTLY MET. CURRENT BS IS 92. WILL CONTINUE TO ROUND FREQUENTLY ON PT. BED IN LOW POSITION, CALL LIGHT WITHIN REACH.
--- NOTE | 2018-12-27 12:35 | NUR ---
I RECEIVED A CALL FROM [employer] PROVIDED AUTH# FOR [facility] IS [id number]. CALLED [facility] SPOKE WITH HEIDI AND PROVIDE THE AUTH # .PER HEIDI PATIENT CAN GO TO TO ROOM [address]B UNDER DR PATEL. TRANSPORT ARRANGED WITH [employer] TECHNOLOGY PROFESSOR TIME WILL BE AROUND 3 PM. NOTIFIED ALEXUS SOTO.
--- NOTE | 2018-12-27 13:35 | NUR ---
PT IS REFUSING TO BE TURNED/REPOSITIONED. REINFORCEMENT OF TEACHING ON IMPORTANCE TO TURN AND REPOSITION Q2H WAS GIVEN BUT PT STILL REFUSED. WILL CONTINUE TO ENCOURAGE PT Q2H.
--- NOTE | 2018-12-27 15:35 | NUR ---
CALLED [facility] AND GAVE REPORT TO CHINMAY. NOTIFIED HER THAT PT HAS RX IN DISCHARGE FOLDER. RN VERBALIZED UNDERSTANDING.
--- NOTE | 2018-12-27 15:40 | NUR ---
PT DISCHARGED TO [facility] [place] FOR CONTINUITY OF CARE. PT DISCHARGE PAPERWORK WAS EXPLAINED AND GIVEN TO PT. PT VERBALIZED UNDERSTANDING OF TEACHING AND SIGNED HER OWN PAPERWORK. IV WAS REMOVED WITH TIP INTACT. WRIST BAND WAS REMOVED AND PLACED IN SHRED BIN. PT OSTOMY AND AVELAR CATH WERE LEFT IN PLACE. RX WAS ALSO GIVEN TO PT IN HER DISCHARGE PAPERWORK FOLDER. PT VERBALIZED KNOWLEDGE OF RECEIVING RX. PT TOOK ALL PERSONAL BELONGINGS WITH HER. PT LEFT IN STABLE CONDITION. TELE MONITOR REMOVED AND PLACED IN NURSES STATION.
== END 2018-12-27 15:40 | DRG 247 ==
LOC: MED 09:23 → MMU 12:55 → MTU 18:17
PROVIDERS: ADMIT General Practice; ATTEND General Practice
DX: K56.609 Unspecified intestinal obstruction, unspecified as to partial versus complete obstruction (principal); E11.40 Type 2 diabetes mellitus with diabetic neuropathy, unspecified; K31.84 Gastroparesis; F11.20 Opioid dependence, uncomplicated; E66.01 Morbid (severe) obesity due to excess calories; E11.43 Type 2 diabetes mellitus with diabetic autonomic (poly)neuropathy; I48.91 Unspecified atrial fibrillation; E87.1 Hypo-osmolality and hyponatremia; G40.901 Epilepsy, unspecified, not intractable, with status epilepticus; J44.9 Chronic obstructive pulmonary disease, unspecified; D64.9 Anemia, unspecified; E11.9 Type 2 diabetes mellitus without complications; E66.9 Obesity, unspecified; E87.6 Hypokalemia; G89.29 Other chronic pain; K56.41 Fecal impaction; I10 Essential (primary) hypertension; I25.10 Atherosclerotic heart disease of native coronary artery without angina pectoris; K21.9 Gastro-esophageal reflux disease without esophagitis; F20.9 Schizophrenia, unspecified; M19.90 Unspecified osteoarthritis, unspecified site; N20.0 Calculus of kidney; D50.9 Iron deficiency anemia, unspecified; Z68.30 Body mass index [BMI] 30.0-30.9, adult; Z74.01 Bed confinement status; Z93.3 Colostomy status; Z88.1 Allergy status to other antibiotic agents; Z90.710 Acquired absence of both cervix and uterus
CPT/HCPCS: 36415; 36600; 74018; 80048; 80053; 81003; 82009; 82150; 82803; 82948; 82977; 83036; 83540; 83605; 83690; 83735; 84100; 84439; 84484; 84550; 85025; 85379; 85610; 87040; 87081; 87086; 93005; 96365; 96366; 96375; 99285; J1644; J1815; J1885; J2001; J2270; J2405; J2550; J2765; J2916; J3475; J3480; J3490; J7030; J7042; J8597; Q0092

== ENCOUNTER 2019-01-09 19:32 | Inpatient (IN) | payer MEDICARE, OTHER ==
[~2019-01-09] VITALS: Ht 162.6 cm; Wt 90.7 kg
[~2019-01-09 19:32] MED LIST changes: +ELA25 PO; +GABA100C PO; -GABA300C PO; +LACT10SO11 PO; -LEVO500T2 PO; -LINE600T PO; +MAGN1.753 PO; +METO-485 PO; -METR500T1 PO; +POLY17PD46 PO; +Potassium Chloride 20% GT; +SENN-74 PO; +SPIR25TA PO
[2019-01-09 19:33] VITALS: BP 130/93
--- NOTE | 2019-01-09 19:33 | NUR ---
TO ED 10 VIA EMS GURNEY.
--- NOTE | 2019-01-09 19:35 | NUR ---
PT PRESENTS TO ED WITH C/O ABD PAIN INCREASING IN SEVERITY OVER 4 DAYS. PT REPORTS N/V POST EATING. ABD IS LARGE, ROUND, TENDER WITH HYPERACTIVE BOWEL SOUNDS TO UPPER QUADRANTS. L SIDED COLOSTOMY BAG IN PLACE, SITE IS WNL NO S/S OF INFECTION TO COLOSTOMY SITE NOTED. PT PLACED INTO BED, PENDING MD BAXTER.
[2019-01-09] MEDS ORDERED: NACL 0.9% 1,000 ML IV ONE (19:40)
[2019-01-09] MEDS ORDERED: MORPHINE SULFATE 4 MG/ML SYR IVP ONE (19:40)
[2019-01-09] MEDS ORDERED: ONDANSETRON 4 MG/2 ML VIAL IVP ONE (19:40)
[2019-01-09 20:30] LABS: APPEARANCE,URINE SL CLOUDY (CLEAR); BILIRUBIN,URINE 1+ (NEGATIVE); BLOOD, URINE 2+ (NEGATIVE); COLOR,URINE ORANGE (YELLOW); LEUKOCYTE ESTERASE ,URINE 3+ (NEGATIVE); NITRITE, URINE NEGATIVE (NEGATIVE); UGLUCOSE NEGATIVE (NEGATIVE)
[2019-01-09 20:36] LABS: BASOPHILS # (AUTO) 0.1 K/uL (0.00-0.22); BASOPHILS % (AUTO) 1.3 % (0.0-2.0); EOSINOPHILS # (AUTO) 0.5 K/uL (0-0.4); EOSINOPHILS % (AUTO) 5.3 % (0.0-4.0); HEMATOCRIT 41.2 % (36-48); HEMOGLOBIN 13.1 g/dL (12.0-16.0); LYMPHOCYTES # (AUTO) 3.5 K/uL (2.5-16.5); LYMPHOCYTES % (AUTO) 33.8 % (20.5-51.1); MEAN CORPUSCULAR HEMOGLOBIN 25 pg (27-31); MEAN CORPUSCULAR HGB CONC 32 g/dL (33-37); MEAN CORPUSCULAR VOLUME 79.7 fL (80-94); MONOCYTES # (AUTO) 0.8 K/uL (0.8-1.0); MONOCYTES % (AUTO) 7.4 % (1.7-9.3); NEUTROPHILS # (AUTO) 5.4 K/uL (1.8-7.7); NEUTROPHILS % (AUTO) 52.2 % (42.2-75.2); PLATELET COUNT (AUTO) 426 K/uL (140-450); RED BLOOD CELL COUNT(AUTO) 5.18 MIL/uL (4.20-5.40); RED CELL DISTRIBUTION WIDTH 24.7 % (11.6-13.7); WHITE BLOOD COUNT (AUTO) 10.4 K/uL (4.8-10.8)
[2019-01-09 20:37] LABS: RBC,URINE 11-20 (MOD) /HPF (0-5); WBC,URINE 80-100 /HPF (0-5)
[2019-01-09 20:37] LABS: ALBUMIN 3.5 g/dL (3.4-5.0); ANION GAP 7.4 (8-16); CARBON DIOXIDE 36.6 mmol/L (21-32); CREATININE 0.9 mg/dL (0.6-1.3); TOTAL BILIRUBIN 0.6 mg/dL (0.0-1.0)
[2019-01-09 20:47] LABS: PROTHROMBIN TIME 9.9 secs (10.8-13.4)
--- NOTE | 2019-01-09 21:13 | NUR ---
NG TUBE PLACED IN RIGHT NARE. PATIENT TOLERATED WELL. AUSCULATED AND ASPIRATED STOMACH CONTENTS TO VERIFY POSITIVE PLACEMENT. WILL AWAIT XRAY TO USE.
[2019-01-09] MEDS ORDERED: PIPERACILLIN/TAZOBACTAM 3.375 GM in DEXTROSE 5% 50 ML IV ONE (21:20)
--- NOTE | 2019-01-09 21:29 | NUR ---
SPOKE WITH NOAH FROM [facility] ABOUT PT STATUS. NOAH TO CALL BACK WITH AUTHORIZATION.
[2019-01-09] MEDS ORDERED: PIPERACILLIN/TAZOBACTAM 3.375 GM VIAL IV ONE (21:32)
[2019-01-09] MEDS ORDERED: LORazepam 2 MG/ML VIAL IM/IVP PRN (22:15)
[2019-01-09] MEDS ORDERED: HYDROcodone/APAP 5/325 MG 1 TAB TAB PO PRN (22:15)
[2019-01-09] MEDS ORDERED: ACETAMINOPHEN 325 MG TAB PO PRN ×2 (22:15→22:25)
[2019-01-09] MEDS ORDERED: DOCUSATE SODIUM 100 MG GELCAP PO PRN (22:15)
[2019-01-09] MEDS ORDERED: ZOLPIDEM 5 MG TAB PO PRN (22:15)
--- NOTE | 2019-01-09 22:23 | NUR ---
PT ARRIVED FROM ER VIA GURNEY. AAOX4. NO C/O PAIN AT THIS TIME. NO C/O NAUSEA OR VOMITING. NO SOB NOTED. ON ROOM AIR. PT HAS NGT, RIGHT NARE. PT HAS COLOSTOMY BAG WITH SMALL AMOUNT OF SOFT LIGHT BROWN STOOL. SKIN INTACT. REDNESS TO BUTTOCKS. ORIENTED PT TO ROOM. DISCUSSED PLAN OF CARE, PT VERBALIZED UNDERSTANDING. FALL AND SEIZURE PRECAUTION IN PLACE. CALL LIGHT WITHIN REACH.
[2019-01-09] MEDS ORDERED: SODIUM PHOSPHATE PEDIATRIC 67.5 ML ENEM RC PRN (22:25)
[2019-01-09] MEDS ORDERED: MAGNESIUM HYDROXIDE 2400 MG/30 ML UDC PO PRN (22:25)
[2019-01-09] MEDS ORDERED: HYDROcodone/APAP 10/325 MG 1 TAB TAB PO SCH (22:25)
--- NOTE | 2019-01-09 22:25 | NUR ---
Patient will be admitted to care of DR STRONG. Admited to TELE. Will go to room 118-B. Belongings list completed. Report to BRITTANY CORONA.
--- NOTE | 2019-01-09 22:45 | NUR ---
CONNECTED PT'S NGT TO LOW INTERMITTENT SUCTION ORDERED, GREENISH FLUIDS NOTED.
[2019-01-09 22:59] LABS: BARBITURATE, URINE NEG. ng/ml (NEG <=200); BENZODIAZEPINE, URINE NEG. ng/mL (NEG <=200); CANNABINOID, URINE NEG. ng/mL (NEG <=50); COCAINE, URINE NEG. ng/mL (NEG <=300); OPIATE, URINE POS. ng/mL (NEG <=2000); PHENCYCLIDINE SCREEN,URINE NEG. ng/mL (NEG <=25)
[2019-01-09 23:00] VITALS: BP 113/80
[2019-01-09] MEDS ORDERED: metroNIDAZOLE 500 MG/NS PREMIX 100 ML IV SCH (23:00)
[2019-01-09 23:04] LABS: MAGNESIUM 2.2 mg/dL (1.8-2.4); THYROID STIMULATING HORMONE 9.5 uIU/mL (0.34-3.74)
[2019-01-09] MEDS: DEXT 5% /NACL 0.9% 1,000 ML IV SCH (23:14)
[2019-01-09 23:27] LABS: PHOSPHORUS 4.7 mg/dL (2.5-4.9)
--- NOTE | 2019-01-10 01:00 | NUR ---
PT SLEEPING. NO S/S OF PAIN OR SOB. PT KEPT DRY AND COMFORTABLE.
[2019-01-10] MEDS: MORPHINE SULFATE 2 MG/ML SYR IVP PRN ×2 (02:36→06:42)
[2019-01-10] MEDS: ALBUTEROL SULFATE/IPRATROPIU 3 ML SOL IH SCH ×6 (02:36→23:00)
--- NOTE | 2019-01-10 03:30 | NUR ---
PT SLEEPING. NO S/S OF RESP DISTRESS. NO S/S OF PAIN.
[2019-01-10 04:00] VITALS: BP 122/72
--- NOTE | 2019-01-10 05:00 | NUR ---
ER NURSE INSERTED ANOTHER IV LINE #20G TO RIGHT AC FOR CT ABDOMEN/PELVIS WITH CONTRAST. PT SIGNED CONSENT.
[2019-01-10] MEDS: metroNIDAZOLE 500 MG/NS PREMIX 100 ML IV SCH ×3 (05:13→20:27)
--- NOTE | 2019-01-10 05:50 | NUR ---
PT LEFT THE UNIT VIA GURNEY ACCOMPANIED BY MEDICAL REPRESENTATIVE AND NURSE FOR CT ABDOMEN/PELVIS WITH CONTRAST. PT IN STABLE CONDITION.
[2019-01-10] MEDS ORDERED: PIPER/TAZO 3.375GM/D5W PREMIX 50 ML IV SCH (06:00)
--- NOTE | 2019-01-10 06:30 | NUR ---
PT CAME BACK FROM CT. PT IN STABLE CONDITION.
[2019-01-10] MEDS ORDERED: PIPERACILLIN/TAZOBACTAM 3.375 GM VIAL IV ONE (07:01)
[2019-01-10] MEDS ORDERED: MORPHINE SULFATE 2 MG/ML SYR IVP PRN (07:15)
--- NOTE | 2019-01-10 07:17 | NUR ---
RECEIVED REPORT FROM ANIMAL NUTRITIONIST RN. PT IS AAOX4. NO C/O PAIN AT THIS TIME. NO C/O NAUSEA OR VOMITING. NO SOB NOTED. ON ROOM AIR. PT HAS NGT, RIGHT NARE. PT HAS COLOSTOMY BAG WITH SMALL AMOUNT OF SOFT LIGHT BROWN STOOL. SKIN INTACT. REDNESS TO BUTTOCKS BUT SKIN INTACT. INTRODUCED SELF TO PT AND DISCUSSED PLAN OF CARE, PT VERBALIZED UNDERSTANDING. FALL AND SEIZURE PRECAUTION IN PLACE. CALL LIGHT WITHIN REACH, BED IN LOW POSITION. WILL ROUND FREQUENTLY.
--- NOTE | 2019-01-10 07:20 | NUR ---
RECEIVED A CALL FROM [employer] GROUP RE: CT RESULT. DR. BARROS MADE AWARE.
--- NOTE | 2019-01-10 07:30 | NUR ---
ENDORSED PT TO DAY SHIFT NURSE. PT IN STABLE CONDITION.
[2019-01-10 08:00] VITALS: BP 140/78
[2019-01-10 08:03] LABS: BASOPHILS # (AUTO) 0.1 K/uL (0.00-0.22); BASOPHILS % (AUTO) 0.8 % (0.0-2.0); EOSINOPHILS # (AUTO) 0.4 K/uL (0-0.4); EOSINOPHILS % (AUTO) 4.8 % (0.0-4.0); HEMATOCRIT 34.7 % (36-48); LYMPHOCYTES # (AUTO) 1.8 K/uL (2.5-16.5); LYMPHOCYTES % (AUTO) 23.7 % (20.5-51.1); MEAN CORPUSCULAR HEMOGLOBIN 25 pg (27-31); MEAN CORPUSCULAR HGB CONC 32 g/dL (33-37); MEAN CORPUSCULAR VOLUME 79.5 fL (80-94); MONOCYTES # (AUTO) 0.5 K/uL (0.8-1.0); MONOCYTES % (AUTO) 7.1 % (1.7-9.3); NEUTROPHILS # (AUTO) 4.9 K/uL (1.8-7.7); NEUTROPHILS % (AUTO) 63.6 % (42.2-75.2); PLATELET COUNT (AUTO) 318 K/uL (140-450); RED BLOOD CELL COUNT(AUTO) 4.36 MIL/uL (4.20-5.40); RED CELL DISTRIBUTION WIDTH 24.8 % (11.6-13.7); WHITE BLOOD COUNT (AUTO) 7.7 K/uL (4.8-10.8)
[2019-01-10] MEDS: DEXT 5% /NACL 0.9% 1,000 ML IV SCH (08:06)
--- NOTE | 2019-01-10 08:29 | NUR ---
PATIENT HAS BEEN SCREENED AND CATEGORIZED HIGH NUTRITION RISK. PATIENT WILL BE SEEN WITHIN 1-2 DAYS OF ADMISSION. 01/10/19-01/11/[address]
[2019-01-10 08:32] LABS: ANION GAP 9.4 (8-16); CARBON DIOXIDE 28.6 mmol/L (21-32); CREATININE 0.8 mg/dL (0.6-1.3)
[2019-01-10 08:42] LABS: CHOL/HDL RATIO 2.9 (1-4.5)
[2019-01-10] MEDS ORDERED: SENNA 8.6 MG TAB PO PRN (09:00)
[2019-01-10] MEDS ORDERED: POLYETHYLENE GLYCOL 17 GM/PKT PO SCH (09:00)
[2019-01-10] MEDS ORDERED: OXcarbazepine 150 MG TAB PO SCH (09:00)
[2019-01-10] MEDS ORDERED: FERROUS SULFATE 325 MG TABEC PO SCH (09:00)
[2019-01-10] MEDS ORDERED: NON-FORMULARY ITEM (Cranberry Fruit Concentrate (Cranberry) 450 MG) PO SCH (09:00)
[2019-01-10] MEDS ORDERED: LURASIDONE HCL 80 MG PO SCH (09:00)
[2019-01-10] MEDS ORDERED: GABAPENTIN 100 MG CAP PO SCH (09:00)
[2019-01-10] MEDS ORDERED: LACTULOSE 20 GM/30 ML UDC PO SCH (09:00)
[2019-01-10] MEDS ORDERED: MAGNESIUM CITRATE 300 ML BTL PO PRN (09:00)
[2019-01-10] MEDS ORDERED: SIMETHICONE 80 MG TAB.CHEW PO PRN (09:00)
[2019-01-10] MEDS: ONDANSETRON 4 MG/2 ML VIAL IM/IVP PRN ×2 (09:56→20:26)
[2019-01-10] MEDS: POTASSIUM CHLORIDE 20% 40 MEQ/15 ML UDC GT SCH ×3 (09:57→17:44)
[2019-01-10] MEDS: DOCUSATE SODIUM 100 MG GELCAP PO SCH ×2 (09:57→20:27)
[2019-01-10] MEDS: LORazepam 1 MG TAB PO SCH ×2 (09:57→20:27)
[2019-01-10] MEDS: SPIRONOLACTONE 25 MG TAB PO SCH (09:58)
[2019-01-10] MEDS: LACTOBACILLUS RHAMNOSUS GG 1 EACH CAP PO SCH (09:58)
[2019-01-10] MEDS: ASCORBIC ACID 500 MG TAB PO SCH (09:58)
--- NOTE | 2019-01-10 09:59 | NUR ---
ADMINISTERED MORNING MEDS TO PT. PT TOLERATED WELL. PT ALSO ASKED FOR MEDICATION FOR NAUSEA. ZOFRAN WAS GIVEN WITH MORNING MEDS. PT INTERMITTENT SUCTIONING WAS TURNED OFF AND WILL TURN BACK ON IN 35-40MINS. PT SECRETIONS ARE RED TINGED. MD AWARE OF FINDINGS. WILL CONTINUE TO MONITOR PT CLOSELY. BED IN LOW POSITION, CALL LIGHT WITHIN REACH.
--- NOTE | 2019-01-10 11:37 | NUR ---
PT RESTING IN BED ON THE PHONE WITH FAMILY MEMBER. PT STATES PAIN IN ABD. PT MEDICATED PER MD ORDERS. ALL OTHER NEEDS CURRENTLY MET. WILL CONTINUE TO ROUND FREQUENTLY ON PT. BED IN LOW POSITION, CALL LIGHT WITHIN REACH.
[2019-01-10 12:00] VITALS: BP 125/82
[2019-01-10] MEDS ORDERED: LEVOTHYROXINE 0.025 MG TAB PO SCH (12:55)
[2019-01-10] MEDS ORDERED: MAGNESIUM CITRATE 300 ML BTL PO SCH ×2 (12:56→22:00)
[2019-01-10] MEDS: POLYETHYLENE GLYCOL 17 GM/PKT PO SCH ×2 (13:00→17:44)
--- NOTE | 2019-01-10 13:15 | NUR ---
01/10/19 RD INITIAL ASSESSMENT COMPLETED PLEASE REFER TO NUTRITION ASSESSMENT UNDER CARE ACTIVITY FOR ESTIMATED NUTRITIONAL NEEDS. 1. CONTINUE NPO MEDICALLY NECESSARY 2. RECOMMEND CLEAR LIQUID WHEN PT IS MEDICALLY STABLE TO RECEIVE NUTRITION 3. IF PT DOES NOT TOLERATE PO DIET, CONSIDER TPN 4. RD TO FOLLOW-UP 2-3 DAYS, HIGH RISK ABDIRASHID MACK RD
--- NOTE | 2019-01-10 13:47 | NUR ---
PT RESTING IN BED. NO SIGNS OF DISTRESS OR PAIN AT THIS TIME. WILL CONTINUE TO ROUND FREQUENTLY ON PT.
[2019-01-10] MEDS: SENNA 8.6 MG TAB PO SCH ×3 (14:21→20:26)
[2019-01-10] MEDS: POTASSIUM CHL 20MEQ/D5-NS 1,000 ML IV SCH (14:22)
[2019-01-10] MEDS ORDERED: KETOROLAC 15 MG/ML VIAL IM PRN (15:50)
[2019-01-10 16:00] VITALS: BP 103/65
--- NOTE | 2019-01-10 16:32 | NUR ---
PT VERBALIZING THAT SHE WANTS MORPHINE BUT DR D/C ALL NARCOTIC MEDS. DR. BARROS NOTIFIED AND SHE ORDERED TORADOL FOR PAIN RELIEF. PT NOTIFIED AND MED PRESCRIBED.
--- NOTE | 2019-01-10 16:48 | NUR ---
ADMINISTERED FLEET ENEMA PER MD ORDERS. PT TOLERATED ENEMA WELL. 30ML OF STOOL NOTED AT THIS TIME. SOME BLOOD TINGED DRAINAGE CAME FROM STOMA ALONG WITH THE STOOL. COLOSTOMY BAG HOOKED TO DRAINAGE BAG TO COLLECT ANY OTHER STOOL EXPELLED.
--- NOTE | 2019-01-10 17:49 | NUR ---
PT SLEEPING IN BED. NO SIGNS OF DISTRESS OR PAIN AT THIS TIME. WILL CONTINUE TO ROUND FREQUENTLY.
--- NOTE | 2019-01-10 19:26 | NUR ---
ENDORSED PT TO LABORER STEEL HANDLING FOR CONTINUITY OF CARE. PT IN STABLE CONDITION AT THIS TIME.
--- NOTE | 2019-01-10 19:27 | NUR ---
RECEIVED REPORT FROM DAY SHIFT NURSE. PT LYING IN BED AAOX4. NO C/O PAIN AT THIS TIME. NO SOB. NO NAUSEA OR VOMITING AT THIS TIME. SKIN INTACT. PT HAS NGT TO RIGHT NARE, SUCTION WAS OFF PER MD ORDER. COLOSTOMY BAG IN PLACE WITH SMALL AMOUNT OF SOFT BROWN STOOL. IV TO LEFT AC #22G AND RIGHT AC #20G, PATENT AND INTACT. DISCUSSED PLAN OF CARE, PT VERBALIZED UNDERSTANDING. FALL, ASPIRATION AND SEIZURE PRECAUTION IN PLACE. CALL LIGHT WITHIN REACH.
[2019-01-10 20:00] VITALS: BP 119/77
[2019-01-10] MEDS ORDERED: MORPHINE SULFATE 2 MG/ML SYR IVP SCH (20:10)
--- NOTE | 2019-01-10 20:20 | NUR ---
PT C/O ABDOMINAL PAIN 04/14. PAIN MEDICATION TORADOL NOT DUE YET. DR. CHENG MADE AWARE AND SHE WILL ORDER MORPHINE 1 MG IVP ONCE. MD AWARE MORPHINE WAS D/C EARLIER. PT C/O NAUSEA, WILL GIVE ZOFRAN 4MG IVP ORDERED.
[2019-01-10] MEDS: AMITRIPTYLINE 25 MG TAB PO SCH (20:27)
[2019-01-10] MEDS ORDERED: MORPHINE SULFATE 2 MG/ML SYR ONE (20:29)
--- NOTE | 2019-01-10 21:00 | NUR ---
DUE MEDS GIVEN, PT TOLERATED WELL. NO NAUSEA OR VOMITING AT THIS TIME.
--- NOTE | 2019-01-10 21:15 | NUR ---
DR. CHENG MADE AWARE THAT SUCTION IS OFF PER GI DOCTOR ORDER TO DAY SHIFT. PER DR. CHENG, SUCTION CAN BE TURNED ON IF PT C/O NAUSEA OR VOMITING AND INFORM MD.
[2019-01-10] MEDS: HYDRAGUARD CREAM TP PRN (22:08)
--- NOTE | 2019-01-10 23:30 | NUR ---
PT SLEEPING BUT EASILY AROUSABLE. NO S/S OF RESP DISTRESS. NO S/S OF PAIN.
[2019-01-11] VITALS (10 sets, daily range): BP systolic 101–128; BP diastolic 49–78
--- NOTE | 2019-01-11 | NUR ---
V/S CHECKED, WNL. PT DENIES PAIN,NAUSEA/VOMITING. SUCTION STILL OFF. CANISTER CHANGED, DARK BROWN DRAINAGE NOTED. PT KEPT DRY AND COMFORTABLE.
--- NOTE | 2019-01-11 02:10 | NUR ---
PT SLEEPING. NO S/S OF PAIN. NO /S SOF RESP DISTRESS NOTED. IVF INFUSING WELL.
[2019-01-11] MEDS: KETOROLAC 15 MG/ML VIAL IVP PRN ×3 (03:19→18:50)
[2019-01-11] MEDS: ONDANSETRON 4 MG/2 ML VIAL IM/IVP PRN ×3 (03:25→20:11)
--- NOTE | 2019-01-11 03:30 | NUR ---
PT C/O ABDOMINAL PAIN AND NAUSEA. TORADOL 15 MG IVP GIVEN FOR PAIN AND ZOFRAN 4 MG IVP FOR NAUSEA. SUCTION ON LOW INTERMITTENT. DR. STALEY MADE AWARE. MADE AWARE ALSO OF PT'S BILATERAL UPPER EXT NON PITTING EDEMA. MD CHECKED ON PT. PER PT, HER EDEMA IS NOT UNUSUAL TO HER. BUE ELEVATED WITH PILLOWS.
--- NOTE | 2019-01-11 03:40 | NUR ---
PT REFUSED TO SIGN THE CONSENT FOR COLONOSCOPY AND DILATION OF COLOSTOMY AT THIS TIME. PER PT, SHE WILL SIGN THE CONSENT THIS MORNING, SHE WANTS TO SLEEP FOR NOW.
[2019-01-11] MEDS: POTASSIUM CHL 20MEQ/D5-NS 1,000 ML IV SCH ×2 (03:53→18:21)
--- NOTE | 2019-01-11 04:55 | NUR ---
PT AWAKE, NO C/O PAIN OR NAUSEA AT THIS TIME. TURNED OFF SUCTION, 30 ML DARK BROWN GASTRIC DRAINAGE NOTED.
[2019-01-11] MEDS: metroNIDAZOLE 500 MG/NS PREMIX 100 ML IV SCH (05:01)
[2019-01-11] MEDS: LEVOTHYROXINE 0.025 MG TAB PO SCH (05:44)
--- NOTE | 2019-01-11 06:00 | NUR ---
PT WAS CLEANSED AND CHANGED. NO C/O PAIN, NAUSEA VOMITING AT THIS TIME.
--- NOTE | 2019-01-11 06:51 | NUR ---
PT C/O ABDOMINAL PAIN 04/14. DR. BARROS ORDERED MORPHINE 1 MG IVP. PT TOLERATED WELL.
[2019-01-11] MEDS ORDERED: MORPHINE SULFATE 2 MG/ML SYR IVP SCH (07:00)
[2019-01-11] MEDS: ALBUTEROL SULFATE/IPRATROPIU 3 ML SOL IH SCH ×6 (07:03→23:00)
--- NOTE | 2019-01-11 07:10 | NUR ---
ENDORSED PT TO DAY SHIFT NURSE. PT IN STABLE CONDITION.
--- NOTE | 2019-01-11 07:11 | NUR ---
RECEIVED BEDSIDE REPORT FROM STUDIO ASSOCIATE NURSE. PATIENT IS AWAKE, ALERT AND ORIENTEDX4. NO SIGNS OF DISTRESS ON RA. SKIN HAS INCONTINENT DERMATITIS, FALL RISK PROTOCOL IN PLACE PATIENT IS BEDBOUND. IV ON R AC 20G SL, L AC 22G INFUSING D5NS W KCL 20MEG AT 80. CLEAN, DRY AND INTACT. TELE MONITOR IN PLACE. NG TUBE IS CLAMPED AT THIS TIME. COLOSTOMY PRESENT, W SMALL LOOSE BROWN STOOL. PATIENT INCONTINENT. SEIZURE PRECAUTIONS IN PLACE. CALL LIGHT WITHIN REACH. WILL CONTINUE TO MONITOR THE PATIENT.
[2019-01-11 07:43] LABS: ANION GAP 6.5 (8-16); CARBON DIOXIDE 28.7 mmol/L (21-32); CREATININE 0.8 mg/dL (0.6-1.3); POTASSIUM 3.2 mmol/L (3.5-5.1)
[2019-01-11 07:48] LABS: BASOPHILS % (AUTO) 1.1 % (0.0-2.0); EOSINOPHILS # (AUTO) 0.2 K/uL (0-0.4); EOSINOPHILS % (AUTO) 5.7 % (0.0-4.0); HEMATOCRIT 31.1 % (36-48); HEMOGLOBIN 10.1 g/dL (12.0-16.0); LYMPHOCYTES # (AUTO) 1.2 K/uL (2.5-16.5); LYMPHOCYTES % (AUTO) 28.8 % (20.5-51.1); MEAN CORPUSCULAR HEMOGLOBIN 26 pg (27-31); MEAN CORPUSCULAR HGB CONC 33 g/dL (33-37); MEAN CORPUSCULAR VOLUME 80.6 fL (80-94); MONOCYTES # (AUTO) 0.3 K/uL (0.8-1.0); MONOCYTES % (AUTO) 6.7 % (1.7-9.3); NEUTROPHILS # (AUTO) 2.4 K/uL (1.8-7.7); NEUTROPHILS % (AUTO) 57.7 % (42.2-75.2); PLATELET COUNT (AUTO) 272 K/uL (140-450); RED BLOOD CELL COUNT(AUTO) 3.86 MIL/uL (4.20-5.40); RED CELL DISTRIBUTION WIDTH 24.4 % (11.6-13.7); WHITE BLOOD COUNT (AUTO) 4.1 K/uL (4.8-10.8)
[2019-01-11] MEDS: LACTOBACILLUS RHAMNOSUS GG 1 EACH CAP PO SCH (08:17)
[2019-01-11] MEDS: ASCORBIC ACID 500 MG TAB PO SCH (08:18)
[2019-01-11] MEDS: LORazepam 1 MG TAB PO SCH ×2 (08:18→20:19)
[2019-01-11] MEDS: DOCUSATE SODIUM 100 MG GELCAP PO SCH (08:19)
[2019-01-11] MEDS: SENNA 8.6 MG TAB PO SCH ×4 (08:19→20:18)
[2019-01-11] MEDS: SPIRONOLACTONE 25 MG TAB PO SCH (08:20)
[2019-01-11] MEDS: POTASSIUM CHLORIDE 20% 40 MEQ/15 ML UDC GT SCH ×3 (08:21→17:35)
[2019-01-11] MEDS: POLYETHYLENE GLYCOL 17 GM/PKT PO SCH ×3 (08:22→17:34)
--- NOTE | 2019-01-11 08:30 | NUR ---
ADMINISTERED MEDS. PATIENT TOLERATED WELL. GAVE PRN NAUSEA MED. EDUCATED ON SIDE EFFECTS. PATIENT VERBALIZED UNDERSTANDING. WILL CONTINUE TO MONITOR
[2019-01-11] MEDS ORDERED: BISACODYL 10 MG SUPP RC SCH (09:00)
--- NOTE | 2019-01-11 10:00 | NUR ---
PATIENT LAYING IN BED NO SIGN OF DISTRESS, WILL CONTINUE TO MONITOR
[2019-01-11 10:19] LABS: MAGNESIUM 2.4 mg/dL (1.8-2.4); PHOSPHORUS 3.2 mg/dL (2.5-4.9)
[2019-01-11] MEDS ORDERED: fentaNYL 0.05 MG/ML VIAL ONE (10:56)
[2019-01-11] MEDS ORDERED: diphenhydrAMINE 50 MG/ML VIAL ONE (10:56)
[2019-01-11] MEDS ORDERED: MIDAZOLAM 2 MG/2 ML VIAL ONE (10:56)
--- NOTE | 2019-01-11 11:00 | NUR ---
PATIENT PICKED UP BY OR STAFF PER TOY PRE OP CHECKLIST COMPLETED AND REPORTED TO OR STAFF. PATIENT LEFT IN STABLE CONDITION
[2019-01-11] MEDS ORDERED: KCL 20 MEQ/WATER INJ PREMIX 200 ML IV SCH (12:00)
[2019-01-11] MEDS ORDERED: POTASSIUM CHLORIDE 20% 40 MEQ/15 ML UDC GT SCH (12:00)
[2019-01-11] MEDS ORDERED: MAGNESIUM CITRATE 300 ML BTL PO SCH (12:00)
--- NOTE | 2019-01-11 12:00 | NUR ---
PATIENT BACK FROM OR. PATIENT HAS NG TUBE IN HER COLOSTOMY TO HELP STOOL FROM BEING EXCRETED, COLOSTOMY WAS DILATED. PATIENT IN STABLE CONDITION. SEE VITALS IN INTERVENTIONS, WNL.
--- NOTE | 2019-01-11 12:01 | NUR ---
AWAKE AND ALERT VERBALLY RESPONSIVE PATIENT REFUSED [facility] THERAPY WASTED RESPIRATORY DRUG
[2019-01-11] MEDS: METOCLOPRAMIDE 10 MG TAB PO SCH ×2 (12:24→17:33)
--- NOTE | 2019-01-11 12:38 | NUR ---
ADMINISTERED MEDS. PATIENT TOLERATED WELL. NO SIGNS OF DISTRESS. WILL CONTINUE TO MONITOR THE PATIENT
[2019-01-11] MEDS ORDERED: COMMUNICATION ORDER MC SCH (12:50)
[2019-01-11] MEDS ORDERED: LATUDA 80 MG PO SCH (13:07)
[2019-01-11] MEDS ORDERED: MIDAZOLAM 2 MG/2 ML VIAL IVP ONE (13:10)
[2019-01-11] MEDS ORDERED: fentaNYL 0.05 MG/ML VIAL IVP ONE (13:10)
--- NOTE | 2019-01-11 13:43 | NUR ---
ADMINISTERED MEDS. PATIENT EDUCATED ON SIDE EFFECTS. PATIENT TOLERATED WELL. PATIENT EATING AT THIS TIME, NO COMPLAINTS OF NAUSEA. WILL CONTINUE TO MONITOR
--- NOTE | 2019-01-11 15:00 | NUR ---
PATIENT IN NO DISTRESS. WILL CONTINUE TO MONITOR
--- NOTE | 2019-01-11 16:00 | NUR ---
AWAKE AND ALERT VERBALLY RESPONSIVE PATIENT REFUSES [facility] THERAPY AND RESPIRATORY DRUG PATIENT STATES "I DON'T WANT ONE NOW MAYBR LATER" FLORA/RN AWARE
--- NOTE | 2019-01-11 16:24 | NUR ---
PATIENT AWAKE ,ALERT, NOT IN DISTRESS ,RESTING ON BED COMFORTABLY, IV SITE DRY ,INTACT AND PATENT .WILL CONTINUE TO MONITOR
--- NOTE | 2019-01-11 18:53 | NUR ---
ADMINISTERED PRN PAIN MED. PATIENT TOLERATED WELL. EDUCATED ON SIDE EFFECTS. WILL CONTINUE TO MONITOR
--- NOTE | 2019-01-11 19:05 | NUR ---
gave bedside report to hand straightener nurse. patient endorsed in stable condition. endorsed pain medication reassessment to hand straightener nurse
--- NOTE | 2019-01-11 19:06 | NUR ---
RECEIVED REPORT FROM AM NURSEFLORA. PT LAYING IN BED AWAKE. NO VISIBLE SIGNS OF DISTRESS. PT RT AC IV 20G INTACT AND INFUSING WELL. COLOSTOMY IN PLACE CONNECTED TO AVELAR BAG VIA NG TUBE. SAFETY PRECAUTIONS IN PLACE, YELLOW SOCKS, BED IN LOWEST POSITION, SCD IN PLACE. CALL LIGHT WITHIN REACH.
--- NOTE | 2019-01-11 20:11 | NUR ---
ZOFRAN GIVEN FOR NAUSEA, PT TOLERATED IT WELL.
[2019-01-11] MEDS: AMITRIPTYLINE 25 MG TAB PO SCH (20:18)
--- NOTE | 2019-01-11 20:18 | NUR ---
GIVEN ATIVAN, SENNA, ELIVIL. PT TOLERATED WELL.
--- NOTE | 2019-01-11 22:10 | NUR ---
PT SLEEPING, EASILY AROUSABLE. NO S/S OF DISTRESS. NO C/O OF PAIN. AFEBRILE. WILL CONTINUE TO MONITOR
--- NOTE | 2019-01-11 23:45 | NUR ---
PT AWAKE IN BED. PT NEEDS TO BE CHANGED. MANAGED CARE NURSE TO CHANGE AND TURN PT. NO S/S OF DISTRESS
[2019-01-12] VITALS: BP 134/81
[2019-01-12] MEDS: ONDANSETRON 4 MG/2 ML VIAL IM/IVP PRN ×5 (00:46→23:42)
[2019-01-12] MEDS: KETOROLAC 15 MG/ML VIAL IVP PRN ×4 (00:46→23:43)
--- NOTE | 2019-01-12 00:46 | NUR ---
TORADOL AND ZOFRAN GIVEN FOR PAIN AND NAUSEA AT THIS TIME.
--- NOTE | 2019-01-12 01:55 | NUR ---
PT SLEEPING, NO VISIBLE SIGNS OF DISTRESS. RESPIRATIONS EVEN, UNLABORED AND WNL.
[2019-01-12] MEDS: ALBUTEROL SULFATE/IPRATROPIU 3 ML SOL IH SCH ×2 (03:00→07:00)
[2019-01-12 04:05] VITALS: BP 148/86
--- NOTE | 2019-01-12 04:15 | NUR ---
PT SLEEPING COMFORTABLY. NO S/S OF DISTRESS NOTED. WILL CONTINUE TO MONITOR.
--- NOTE | 2019-01-12 05:08 | NUR ---
ZOFRAN GIVEN FOR NAUSEA. PT TOLERATED WELL.
--- NOTE | 2019-01-12 05:25 | NUR ---
CHANGED COLOSTOMY BAG. THERE WAS NO DRAINAGE GOING THROUGH THE NGTUBE. SOON I MOVED THE NG TUBE LIQUID STOOL STARTED LEAKING OUT. 5000ML TOTAL WAS MEASURED AND STILL LEAKING INTO THE COLOSTOMY BAG.
[2019-01-12] MEDS: LEVOTHYROXINE 0.025 MG TAB PO SCH (06:26)
--- NOTE | 2019-01-12 06:26 | NUR ---
SYNTHROID GIVEN PO. PT TOLERATED WELL.
[2019-01-12] MEDS: POTASSIUM CHL 20MEQ/D5-NS 1,000 ML IV SCH (07:25)
--- NOTE | 2019-01-12 07:25 | NUR ---
D5NS WITH 20MEQ KCL HUNG.
--- NOTE | 2019-01-12 07:27 | NUR ---
REPORT GIVEN TO AM NURSE AT BEDSIDE. PT IN STABLE CONDITION.
--- NOTE | 2019-01-12 07:28 | NUR ---
RECEIVED BEDSIDE REPORT FROM FINANCIAL ANALYST INTERN NURSE. AWAKE, ALERT AND ORIENTEDX4. NO SIGNS OF DISTRESS ON RA. PATIENT IS BEDBOUND. FALL RISK PROTOCOL IN PLACE. PATIENT HAS INCONTINENT DERMATITIS. COLOSTOMY IN PLACE, LEAKING, NEW COLOSTOMY BAG PLACED. R AC 20G INFUSING D5NS W KCL 20 MEQ AT 80, L AC 22G SL, CLEAN, DRY AND INTACT. TELE MONITOR IN PLACE. BED IN LOW POSITION, CALL LIGHT WITHIN REACH. WILL CONTINUE TO MONITOR THE PATIENT.
[2019-01-12 07:38] LABS: BASOPHILS % (AUTO) 0.6 % (0.0-2.0); EOSINOPHILS # (AUTO) 0.1 K/uL (0-0.4); EOSINOPHILS % (AUTO) 2.4 % (0.0-4.0); HEMATOCRIT 36.2 % (36-48); HEMOGLOBIN 11.5 g/dL (12.0-16.0); LYMPHOCYTES # (AUTO) 1.2 K/uL (2.5-16.5); LYMPHOCYTES % (AUTO) 23.3 % (20.5-51.1); MEAN CORPUSCULAR HEMOGLOBIN 26 pg (27-31); MEAN CORPUSCULAR HGB CONC 32 g/dL (33-37); MEAN CORPUSCULAR VOLUME 80.5 fL (80-94); MONOCYTES # (AUTO) 0.4 K/uL (0.8-1.0); MONOCYTES % (AUTO) 7.6 % (1.7-9.3); NEUTROPHILS # (AUTO) 3.5 K/uL (1.8-7.7); NEUTROPHILS % (AUTO) 66.1 % (42.2-75.2); PLATELET COUNT (AUTO) 296 K/uL (140-450); RED BLOOD CELL COUNT(AUTO) 4.49 MIL/uL (4.20-5.40); RED CELL DISTRIBUTION WIDTH 24.1 % (11.6-13.7); WHITE BLOOD COUNT (AUTO) 5.3 K/uL (4.8-10.8)
[2019-01-12 08:00] VITALS: BP 116/73
[2019-01-12 08:27] LABS: MAGNESIUM 2.3 mg/dL (1.8-2.4); PHOSPHORUS 2.9 mg/dL (2.5-4.9)
--- NOTE | 2019-01-12 08:30 | NUR ---
PATIENT REFUSED BREATHING TX, SAID SHE DID NOT FEELING ANY SOB OR THE NEED FOR THE TX. PATIENT WAS ON ROOM AIR, SAID SHE WOULD SEE IF SHE NEEDED THE TX ON NEXT ROUND. WILL CONTINUE TO MONITOR PATIENT
[2019-01-12 08:33] LABS: ANION GAP 11.4 (8-16); CARBON DIOXIDE 28.2 mmol/L (21-32); CREATININE 0.8 mg/dL (0.6-1.3); POTASSIUM 4.6 mmol/L (3.5-5.1)
[2019-01-12] MEDS: METOCLOPRAMIDE 10 MG TAB PO SCH ×3 (09:36→16:31)
[2019-01-12] MEDS: SENNA 8.6 MG TAB PO SCH ×4 (09:36→20:12)
[2019-01-12] MEDS: LACTOBACILLUS RHAMNOSUS GG 1 EACH CAP PO SCH (09:36)
[2019-01-12] MEDS: ASCORBIC ACID 500 MG TAB PO SCH (09:37)
[2019-01-12] MEDS: LORazepam 1 MG TAB PO SCH ×2 (09:37→20:12)
[2019-01-12] MEDS: POLYETHYLENE GLYCOL 17 GM/PKT PO SCH ×3 (09:37→16:32)
[2019-01-12] MEDS: POTASSIUM CHLORIDE 20% 40 MEQ/15 ML UDC GT SCH (09:38)
[2019-01-12] MEDS: SPIRONOLACTONE 25 MG TAB PO SCH (09:40)
[2019-01-12] MEDS: LATUDA 80 MG PO SCH (09:40)
--- NOTE | 2019-01-12 09:50 | NUR ---
ADMINISTERED MEDICATIONS TO PT, TOLERATED WELL. REVIEWED INDICATIONS AND SIDE EFFECTS OF MEDICATIONS WITH PT. WILL CONTINUE TO MONITOR. NEW COLOSTOMY BAG D/T OTHER BAG LEAKING. NGT CAME OUT PER DR RADHA HANLEY TO LEAVE IT OFF
[2019-01-12] MEDS ORDERED: ALBUTEROL SULFATE/IPRATROPIU 3 ML SOL IH PRN (10:45)
--- NOTE | 2019-01-12 11:00 | NUR ---
PATIENT SITTING IN BED. NO SIGNS OF DISTRESS WILL CONTINUE TO MONITOR
[2019-01-12 12:00] VITALS: BP 123/82
[2019-01-12] MEDS ORDERED: MAGNESIUM CITRATE 300 ML BTL PO SCH (12:30)
--- NOTE | 2019-01-12 12:34 | NUR ---
PT LAYING IN BED REQUESTING THAT I RAISE HEAD OF BED AND MOVE HER TRAY AWAY FROM BED. ASSISTED PT WITH THESE TASKS, WITH PT ASKING NO FURTHER QUESTIONS AT THIS TIME. NO OBVIOUS SIGNS OF DISTRESS.
[2019-01-12] MEDS: SORBITOL 70% 30 ML UDC PO SCH (13:06)
[2019-01-12] MEDS: MORPHINE SULFATE 2 MG/ML SYR IVP PRN ×2 (13:07→20:13)
--- NOTE | 2019-01-12 13:18 | NUR ---
administered meds. educated on side effects. patient tolerated well. will continue to monitor
--- NOTE | 2019-01-12 13:30 | NUR ---
CHANGED PT COLOSTOMY BAG AND WAFER DUE TO LEAKING. ALSO IMMEDIATELY CHANGED BEDDING DUE TO COLOSTOMY LEAKING ONTO BEDDING. PT EXPRESSED GRATITUDE FOR THE BED CHANGE AND STATES SHE REQUIRES NOTHING ELSE AT THIS TIME AND CURRENTLY HAS NO OBVIOUS SIGNS OF DISTRESS.
--- NOTE | 2019-01-12 15:50 | NUR ---
PATIENT SITTING IN BED. NO SIGNS OF DISTRESS. WILL CONTINUE TO MONITOR
[2019-01-12 16:00] VITALS: BP 129/79
--- NOTE | 2019-01-12 16:40 | NUR ---
MEDICATIONS ADMINISTERED, PT RESTING IN BED WITHOUT SIGNS OF OBVIOUS DISTRESS AND HAS NO FURTHER REQUESTS AT THIS TIME.
--- NOTE | 2019-01-12 18:41 | NUR ---
ADMINISTERED ZOFRAN PRN PER PATIENT REQUEST DUE TO REPORTED NAUSEA. NO OBVIOUS SIGNS OF DISTRESS AT THIS TIME, PT DENIES FURTHER REQUESTS AT THIS TIME.
--- NOTE | 2019-01-12 19:19 | NUR ---
gave bedside report to maintenance mechanic 2nd shift nurse. patient endorsed in stable condition
--- NOTE | 2019-01-12 19:20 | NUR ---
RECEIVED BEDSIDE REPORT FROM DAY SHIFT RN. PATIENT HAS NO COMPLAINTS AT THIS TIME, AND NO SIGNS OF DISTRESS ON RA. SAFETY PRECAUTIONS IN PLACE. CALL LIGHT IN REACH. WILL CONTINUE TO MONITOR.
[2019-01-12 20:00] VITALS: BP 139/70
--- NOTE | 2019-01-12 20:08 | NUR ---
RECEIVED PATIENT ON ROOM AIR, PULSE OX SAT 94%. PATIENT STATES TO BE FEELING "A LITTLE SHORT OF BREATH". PRN BREATHING TX ADMINISTERED. PATIENT STATES TO BE "FEELING BETTER". NO RESPIRATORY DISTRESS NOTED AT THIS TIME. WILL CONTINUE TO MONITOR.
[2019-01-12] MEDS: AMITRIPTYLINE 25 MG TAB PO SCH (20:12)
--- NOTE | 2019-01-12 20:25 | NUR ---
ADMINISTERED SCHEDULED MEDICATIONS AND PRN PAIN MEDICATIONS. PATIENT HAD LARGE LIQUID BM AND COLOSTOMY BAG LEAKED ONTO PATIENT NAD BED. CLEANED PATIENT AND BED, PROVIDED FRESH LINENS, AND APPLIED NEW APPLIANCE AND COLOSTOMY BAG. PATIENT DOES NOT HAVE AN OUTWARD STOMA. SKIN SURROUNDING OPENING IS IRRITATED. APPLIED BARRIER CREAM PRIOR TO APPLIANCE APPLICATION. POSITIONED PATIENT FOR COMFORT.
--- NOTE | 2019-01-12 22:05 | NUR ---
PATIENT SLEEPING IN BED. NO SIGNS OF DISTRESS AT THIS TIME. MINIMAL DRAINAGE IN COLOSTOMY BAG. WILL CONTINUE TO MONITOR.
--- NOTE | 2019-01-12 23:45 | NUR ---
ADMINISTERED PRN MEDIATIONS FOR NAUSEA AND PAIN, PATIENT COLOSTOMY BAG HAD MINIMAL DRAINAGE. WILL CONTINUE TO CHECK BAG FREQUENTLY, APPLIANCE SEAL HAS BEEN LEAKING. PATIENT IS HAVING FREQUENT WATERY STOOLS.
[2019-01-13] VITALS: BP 138/76
[2019-01-13] MEDS: SORBITOL 70% 30 ML UDC PO SCH (00:09)
--- NOTE | 2019-01-13 00:10 | NUR ---
ADMINISTERED SCHEDULED DOSE OF SORBITOL. SPOKE TO CHARGE NURSE PRIOR TO ADMINISTRATION DUE TO PATIENT'S FREQUENCY OF WATERY STOOLS. THIS IS THE 3RD DOSE IN A SERIES OF 3 AND IS NECESSARY TO CLEAR THE BOWELS. WILL CONTINUE TO MONITOR COLOSTOMY OUTPUT.
--- NOTE | 2019-01-13 00:30 | NUR ---
PATIENT HAD ANOTHER LARGE WATERY STOOL WITH FLATUS. COLOSTOMY APPLIANCE BECAME UNSEALED, WATERY STOOL SPILLED ONTO BED AND PATIENT. CLEANED PATIENT, PROVIDED CLEAN LINEN, APPLIED NEW COLOSTOMY APPLIANCE AND BAG. WILL HOLD FURTHER DOSES OF LAXATIVES AND MAKE AWARE.
[2019-01-13] MEDS: MORPHINE SULFATE 2 MG/ML SYR IVP PRN ×4 (02:22→21:20)
--- NOTE | 2019-01-13 02:25 | NUR ---
PATIENT C/O 03/14 PAIN, ADMINISTERED PRN PAIN MEDICATION. OTHERWISE NO DISTRESS ON RA. EMPTIED COLOSTOMY BAG. REPOSITIONED PATIENT FOR COMFORT.
--- NOTE | 2019-01-13 03:30 | NUR ---
PATIENT SLEEPING. NO SIGNS OF DISTRESS ON RA. WILL CONTINUE TO MONITOR.
[2019-01-13 04:00] VITALS: BP 129/88
[2019-01-13] MEDS: ONDANSETRON 4 MG/2 ML VIAL IM/IVP PRN ×4 (05:52→21:27)
[2019-01-13] MEDS: LEVOTHYROXINE 0.1 MG TAB PO SCH (05:53)
[2019-01-13] MEDS: POTASSIUM CHL 20MEQ/D5-NS 1,000 ML IV SCH (05:53)
[2019-01-13] MEDS: KETOROLAC 15 MG/ML VIAL IVP PRN ×3 (05:53→18:39)
--- NOTE | 2019-01-13 06:08 | NUR ---
PATIENT C/O PAIN AND NAUSEA BUT UNABLE TO ADMIN MEDICATIONS AT THIS TIME. LEFT AC IV SITE HAS INFILTRATED. WILL DC AND INSERT NEW IV ACCESS.
[2019-01-13] MEDS ORDERED: KETOROLAC 15 MG/ML VIAL IM ONE (06:45)
--- NOTE | 2019-01-13 06:50 | NUR ---
NEW IV ACCESS INFILTRATED DURING ZOFRAN ADMINISTRATION. UNABLE TO GIVE TORADOL IV. SPOKE TO DR. MCGUIRE, APPROVED ONE TIME DOSE OF TORADOL IM.
--- NOTE | 2019-01-13 07:25 | NUR ---
GAVE BEDSIDE REPORT TO DAY SHIFT RN. PATIENT IN STABLE CONDITION, BUT HAS NO IV ACCESS ENDORSED TO DAY SHIFT TO OBTAIN ACCESS.
--- NOTE | 2019-01-13 07:26 | NUR ---
RECEIVED BEDSIDE SHIFT REPORT FROM PRINTING MANAGER NURSE. PT SITTING UP IN BED RESTING WITH BREATHING EQUAL AND NO OBVIOUS SIGNS OF DISTRESS. IV SITES CURRENTLY INFILTRATED AND NOT INFUSING. NEW IV LINE WILL BE INSERTED LATER. PT HAS NO REQUESTS OR COMPLAINTS AT THIS TIME. COLOSTOMY ASSESSED, BAG INTACT AND BROWN STOOL NOTED IN BAG. PT AOX4 ALL SAFETY MEASURES IN PLACE WILL CONTINUE TO MONITOR.
[2019-01-13 07:56] LABS: BASOPHILS % (AUTO) 0.8 % (0.0-2.0); EOSINOPHILS # (AUTO) 0.2 K/uL (0-0.4); HEMATOCRIT 33.6 % (36-48); HEMOGLOBIN 10.7 g/dL (12.0-16.0); LYMPHOCYTES # (AUTO) 1.6 K/uL (2.5-16.5); LYMPHOCYTES % (AUTO) 35.1 % (20.5-51.1); MEAN CORPUSCULAR HEMOGLOBIN 26 pg (27-31); MEAN CORPUSCULAR HGB CONC 32 g/dL (33-37); MEAN CORPUSCULAR VOLUME 79.8 fL (80-94); MONOCYTES # (AUTO) 0.4 K/uL (0.8-1.0); MONOCYTES % (AUTO) 8.3 % (1.7-9.3); NEUTROPHILS # (AUTO) 2.4 K/uL (1.8-7.7); NEUTROPHILS % (AUTO) 50.6 % (42.2-75.2); PLATELET COUNT (AUTO) 300 K/uL (140-450); RED BLOOD CELL COUNT(AUTO) 4.21 MIL/uL (4.20-5.40); RED CELL DISTRIBUTION WIDTH 23.9 % (11.6-13.7); WHITE BLOOD COUNT (AUTO) 4.7 K/uL (4.8-10.8)
[2019-01-13 08:00] VITALS: BP 121/74
[2019-01-13 08:05] LABS: CARBON DIOXIDE 26.3 mmol/L (21-32); POTASSIUM 3.3 mmol/L (3.5-5.1)
[2019-01-13 08:06] LABS: CREATININE 0.8 mg/dL (0.6-1.3)
[2019-01-13 08:14] LABS: MAGNESIUM 1.9 mg/dL (1.8-2.4); PHOSPHORUS 4.4 mg/dL (2.5-4.9)
[2019-01-13] MEDS: LORazepam 1 MG TAB PO SCH (08:42)
[2019-01-13] MEDS: METOCLOPRAMIDE 10 MG TAB PO SCH ×3 (08:42→16:07)
[2019-01-13] MEDS: ASCORBIC ACID 500 MG TAB PO SCH (08:42)
[2019-01-13] MEDS: SENNA 8.6 MG TAB PO SCH ×3 (08:43→16:07)
[2019-01-13] MEDS: POLYETHYLENE GLYCOL 17 GM/PKT PO SCH ×3 (08:43→16:07)
[2019-01-13] MEDS: SPIRONOLACTONE 25 MG TAB PO SCH (08:43)
[2019-01-13] MEDS: LATUDA 80 MG PO SCH (08:46)
[2019-01-13] MEDS: LACTOBACILLUS RHAMNOSUS GG 1 EACH CAP PO SCH (08:47)
--- NOTE | 2019-01-13 09:00 | NUR ---
SCHEDULED MEDICATIONS ADMINISTERED. PATIENT C/O 03/14 ABD PAIN- ADMINISTERED MORPHINE PER MD ORDERS. ALL SAFETY PRECAUTIONS IN PLACE, WILL CONTINUE TO MONITOR.
--- NOTE | 2019-01-13 09:00 | NUR ---
INSERTED RIGHT FOOT PERIPHERAL IV X1 ATTEMPT, 22G FLUSHING AND ASPIRATING WELL. IV INSERTED VIA DR. PAPO WONG. Addendum: 01/13/19 at 0913 by Smith Mathur RN PER DR. PAPO GARCIA TO INSERT IV ON LOWER EXTREMITY.
[2019-01-13 09:30] LABS: EOSINOPHILS % (AUTO) 5.2 % (0.0-4.0)
--- NOTE | 2019-01-13 10:14 | NUR ---
ATTEMPTED TO CONTACT PICC LINE AGENCY AT [phone] ATTEMPT WITH NO ANSWER IN REGARDS TO PENDING PICC LINE INSERTION NEED FOR PT. ALSO NOTIFIED DR. BARROS IN REGARDS TO POTASSIUM LEVELS AT 3.3
--- NOTE | 2019-01-13 10:18 | NUR ---
REACHED PICC LINE AGENCY [phone]. STORE DIRECTOR STATES PICC LINE RN TO CALL BACK WITH FURTHER INFORMATION. INFORMED PICC LINE AGENCY OF ROOM NUMBER.
--- NOTE | 2019-01-13 10:30 | NUR ---
ADMINISTERED ZOFRAN FOR PT C/O NAUSEA. NO VOMITING YET IN THIS SHIFT.
--- NOTE | 2019-01-13 10:40 | NUR ---
CHANGED PT COLOSTOMY BAG AND APPLIED A NEW WAFER WELL. CLEANSED SKIN WITH WATER AND APPLIED SKIN PREP TO SIMRAN AREA. PT TOLERATED WELL.
--- NOTE | 2019-01-13 11:13 | NUR ---
PICC LINE RN AT BEDSIDE.
--- NOTE | 2019-01-13 11:25 | NUR ---
NO C/O N/V, ONE HOUR AFTER ZOFRAN IVP.
[2019-01-13] MEDS ORDERED: POTASSIUM CHLORIDE 10 MEQ TABER PO SCH (11:47)
[2019-01-13] MEDS ORDERED: busPIRone 5 MG TAB PO SCH (11:47)
[2019-01-13 12:00] VITALS: BP 137/87
--- NOTE | 2019-01-13 12:28 | NUR ---
PICC LINE INSERTION COMPLETED, AND PLACEMENT VERIFIED VIA CXR. BOTH PORTS FLUSH WITHOUT PROBLEMS.
--- NOTE | 2019-01-13 12:50 | NUR ---
PER PICC NURSE TALON DAVALOS TO USE PICC LINE RIGHT UPPER ARM.
--- NOTE | 2019-01-13 14:10 | NUR ---
APPLIED HYDRAGUARD TO PATIENT WITH A SMALL AREA OF REDNESS TO CENTRAL SACRAL AREA. ALSO APPLIED INTERDRY CLOTH TO PATIENT LEFT SIDED ABDOMINAL SKINFOLD DUE TO REDNESS TO INTACT SKIN.
[2019-01-13 15:16] VITALS: BP 113/68
--- NOTE | 2019-01-13 16:07 | NUR ---
ADMINISTERED ZOFRAN PER PATIENT REQUEST DUE TO NAUSEA. PT HAS NO OTHER REQUESTS AT THIS TIME. EMPTIED COLOSTOMY BAG. NO OBVIOUS SIGNS OF ACUTE DISTRESS.
--- NOTE | 2019-01-13 16:12 | NUR ---
RIGHT FOOT IV REMOVED. NO PERIPHERAL IV SITES LEFT.
[2019-01-13] MEDS ORDERED: SENNA 8.6 MG TAB PO SCH (17:00)
--- NOTE | 2019-01-13 17:05 | NUR ---
NO C/O N/V, ONE HOUR AFTER ZOFRAN IVP.
[2019-01-13] MEDS ORDERED: POTASSIUM CHLORIDE 20% 40 MEQ/15 ML UDC GT SCH (18:00)
[2019-01-13] MEDS ORDERED: SORBITOL 70% 30 ML UDC PO SCH (18:00)
--- NOTE | 2019-01-13 18:22 | NUR ---
ASKED CARDIOPULMONARY SUPERVISOR TO BRING SCHEDULED 1800 SORBITOL. CARDIOPULMONARY SUPERVISOR VERBALIZED UNDERSTANDING.
--- NOTE | 2019-01-13 18:51 | NUR ---
[facility] IS BRINGING THE 1800 SORBITAL. WILL ENDORSE TO EMPLOYEE RELATIONS SPECIALIST IF NECESSARY.
--- NOTE | 2019-01-13 19:15 | NUR ---
ENDORSED POC TO UNDERPRESSER HAND RN. PT IN STABLE CONDITION. ENDORSED PAIN REASSESSMENT AND 1800 SORBITOL-TO BE BROUGHT BY PHARMACY.
--- NOTE | 2019-01-13 19:16 | NUR ---
RECEIVED BEDSIDE REPORT FROM SUNNI SOTO. PT IS AAO X4 ON ROOM AIR. RESPIRATIONS ARE EQUAL AND UNLABORED. PATIENT WITH RUE PICC LINE INSERT TODAY. D5ND [id number] AT 20ML/H. NEW DIET REGULAR. PATIENT IS INCONTINENT. ILEOSTOMY BAG ON LLQ BAD IS 2/3 FULL WILL EMPTY. PER NURSE HAS BEEN EMPTYING Q HOUR. POSSIBLE SURGERY WITH DR GASTON ON TUESDAY PATIENT AWARE AND CONSENT SIGN. PLAN OF CARE DISCUSSED WITH PATIENT. CALL LIGHT WITHIN REACH. SAFETY MEASURES IN PLACE. SX AND FALL PROTOCOL. WILL CONTINUE TO MONITOR.
--- NOTE | 2019-01-13 19:50 | NUR ---
GAVE BEDSIDE REPORT TO ANDRIA SOTO. PT ENDORSED IN STABLE CONDITION.
--- NOTE | 2019-01-13 19:51 | NUR ---
RECEIVED PT IN BED, DROWSY, BUT PT CAN BE AROUSED BY NAME. A,0 X 4. PT NONAMBULATORY. TELE PT. PT W/ R UA PICC LINE, PATENT W/ D5% NS W/ KCL 20 MEQ. W/ OSTOMY BAG ON THE LEFT ABDOMEN FULL.WILL CHANGE. POC REVIEWED. PLACED ON LOW BED POSITYION. CALL LIGHT W/IN EASY REACH. FALL RISK PRECAUTION
[2019-01-13 20:00] VITALS: BP 107/65
--- NOTE | 2019-01-13 20:00 | NUR ---
EMPTIED COLOSTOMY 1ST TIME KARTHIKEYAN
[2019-01-13] MEDS: AMITRIPTYLINE 25 MG TAB PO SCH (21:21)
[2019-01-13] MEDS: busPIRone 5 MG TAB PO SCH (21:21)
[2019-01-14] MEDS: KETOROLAC 15 MG/ML VIAL IVP PRN ×2 (01:31→19:50)
--- NOTE | 2019-01-14 01:34 | NUR ---
PT SLEEPLESSNESS, ANXIOUS, ORDERED TRAZODONE.WILL CONTINUE TO MONITOR.CARRIED OUT ORDERS
--- NOTE | 2019-01-14 01:44 | NUR ---
BAG W/ FECES BURSTING AT SEAMS, NEED TO REPLACE BAG
[2019-01-14] MEDS ORDERED: traZODone 50 MG TAB PO SCH (02:00)
[2019-01-14] MEDS: ONDANSETRON 4 MG/2 ML VIAL IM/IVP PRN ×4 (02:15→19:50)
--- NOTE | 2019-01-14 02:15 | NUR ---
CHANGED COLOSTOMY BAG, ZOFRAN GIVEN PT C/O NAUSEA
[2019-01-14] MEDS: MORPHINE SULFATE 2 MG/ML SYR IVP PRN ×4 (03:48→23:05)
[2019-01-14 04:00] VITALS: BP 108/66
[2019-01-14] MEDS: POTASSIUM CHL 20MEQ/D5-NS 1,000 ML IV SCH (04:34)
[2019-01-14] MEDS: LEVOTHYROXINE 0.1 MG TAB PO SCH (06:09)
--- NOTE | 2019-01-14 07:18 | NUR ---
PT IS AAOX 4., ENDORSED TO AM SHIFT FOR CONTINUITY OF CARE. PT IN STABLE CONDITION AT THIS TIME.
--- NOTE | 2019-01-14 07:23 | NUR ---
RECEIVED BEDSIDE SHIFT REPORT FROM TAPPING MACHINE OPERATOR NURSE. PT SITTING UP IN BED RESTING WITH BREATHING EQUAL AND NO OBVIOUS SIGNS OF DISTRESS. AOX4, PLEASANT AND COOPERATIVE. NO C/O PAIN OR DISCOMFORT AT THIS TIME. COLOSTOMY ASSESSED, BAG INTACT AND BROWN STOOL NOTED IN BAG, EMPTIED BAG. RT UA PICC LINE DOUBLE LUMEN INTACT AND ASYMPTOMATIC, INFUSING IVF PER MD ORDERS. BEDBOUND AND INCONTINENT. ALL SAFETY MEASURES IN PLACE WILL CONTINUE TO MONITOR.
[2019-01-14 07:45] LABS: MAGNESIUM 1.7 mg/dL (1.8-2.4)
[2019-01-14 07:51] LABS: ANION GAP 12.3 (8-16); CARBON DIOXIDE 24.7 mmol/L (21-32); CREATININE 0.8 mg/dL (0.6-1.3)
[2019-01-14 07:52] LABS: BASOPHILS % (AUTO) 0.5 % (0.0-2.0); EOSINOPHILS # (AUTO) 0.4 K/uL (0-0.4); HEMATOCRIT 32.8 % (36-48); HEMOGLOBIN 10.5 g/dL (12.0-16.0); LYMPHOCYTES # (AUTO) 1.7 K/uL (2.5-16.5); LYMPHOCYTES % (AUTO) 35.3 % (20.5-51.1); MEAN CORPUSCULAR HEMOGLOBIN 26 pg (27-31); MEAN CORPUSCULAR HGB CONC 32 g/dL (33-37); MEAN CORPUSCULAR VOLUME 80.5 fL (80-94); MONOCYTES # (AUTO) 0.3 K/uL (0.8-1.0); MONOCYTES % (AUTO) 6.5 % (1.7-9.3); NEUTROPHILS # (AUTO) 2.5 K/uL (1.8-7.7); NEUTROPHILS % (AUTO) 50.5 % (42.2-75.2); PLATELET COUNT (AUTO) 254 K/uL (140-450); RED BLOOD CELL COUNT(AUTO) 4.08 MIL/uL (4.20-5.40); RED CELL DISTRIBUTION WIDTH 23.7 % (11.6-13.7); WHITE BLOOD COUNT (AUTO) 4.9 K/uL (4.8-10.8)
[2019-01-14 08:00] VITALS: BP 131/70
[2019-01-14 08:49] LABS: EOSINOPHILS % (AUTO) 7.2 % (0.0-4.0)
[2019-01-14] MEDS ORDERED: POTASSIUM CHLORIDE 20% 40 MEQ/15 ML UDC GT SCH (09:00)
[2019-01-14] MEDS ORDERED: busPIRone 5 MG TAB PO SCH (09:00)
[2019-01-14] MEDS ORDERED: POLYETHYLENE GLYCOL 17 GM/PKT PO SCH (09:08)
[2019-01-14] MEDS ORDERED: SENNA 8.6 MG TAB PO SCH (09:08)
[2019-01-14] MEDS: ASCORBIC ACID 500 MG TAB PO SCH (09:48)
[2019-01-14] MEDS: METOCLOPRAMIDE 10 MG TAB PO SCH ×3 (09:48→16:26)
[2019-01-14] MEDS: busPIRone 5 MG TAB PO SCH ×2 (09:48→19:49)
[2019-01-14] MEDS: LACTOBACILLUS RHAMNOSUS GG 1 EACH CAP PO SCH (09:48)
[2019-01-14] MEDS: LATUDA 80 MG PO SCH (09:49)
[2019-01-14] MEDS: SPIRONOLACTONE 25 MG TAB PO SCH (09:50)
--- NOTE | 2019-01-14 10:37 | NUR ---
PT C/O NAUSEA, NO VOMITING NOTED. ADMINISTERED ZOFRAN IVP. WILL CONTINUE TO MONITOR.
--- NOTE | 2019-01-14 10:46 | NUR ---
01/14/19 RD FOLLOW UP COMPLETED PLEASE REFER TO NUTRITION PROGRESS NOTE UNDER CARE ACTIVITY FOR ESTIMATED NUTRITION NEEDS. RD RECOMMENDATIONS: 1. CONTINUE REGULAR DIET TOLERATED. 4. RDN TO FOLLOW-UP 3-5 DAYS, MODERATE RISK. LAWRENCE SANDOVAL MS, RDN
[2019-01-14] MEDS ORDERED: APAP/BUTAL/CAFF 325/50/40 MG 1 TAB PO SCH (10:58)
[2019-01-14] MEDS ORDERED: MORPHINE SULFATE 2 MG/ML SYR IVP SCH (10:58)
[2019-01-14] MEDS ORDERED: SODIUM PHOSPHATE 118 ML ENEM RC SCH (10:59)
--- NOTE | 2019-01-14 11:35 | NUR ---
NO C/O N/V, ONE HOUR AFTER ZOFRAN IVP.
[2019-01-14 12:00] VITALS: BP 125/70
[2019-01-14] MEDS ORDERED: MAG SULF 2000 MG/WATER PREMIX 50 ML IV SCH (12:00)
--- NOTE | 2019-01-14 12:17 | NUR ---
COLOSTOMY BAG AND WAFER CHANGED. NEW INTERDRY CLOTH APPLIED- OLD ONE SOILED. ADMINISTERED SCHEDULED ENEMA. CALL LIGHT AT BEDSIDE.
--- NOTE | 2019-01-14 14:59 | NUR ---
PT C/O NAUSEA, NO VOMITING. ADMINISTERED PRN ZOFRAN IVP. CHANGED COLOSTOMY BAG. REDNESS AROUND STOMA NOTED. STOMA CARE PROVIDED. WILL CONTINUE TO MONITOR.
--- NOTE | 2019-01-14 15:59 | NUR ---
PT DENIES N/V ONE HOUR AFTER ZOFRAN IVP.
[2019-01-14 16:00] VITALS: BP 123/70
--- NOTE | 2019-01-14 19:18 | NUR ---
ENDORSED TO BEEF BONER NURSE. PATIENT IS STABLE.
--- NOTE | 2019-01-14 19:29 | NUR ---
ENDORSED TO OPERATORS SCHOOL MANAGER THAT DR. GARCIA REQUESTING PREVIOUS COLONOSCOPY AND BIOPSY RESULTS FROM PREVIOUS [employer] ADMISSION.
--- NOTE | 2019-01-14 19:30 | NUR ---
RECEIVED BEDSIDE REPORT FROM DAY SHIFT RN WEST, PATIENT IN BED, ON RA, COLOSTOMY BAG ON RIGHT UPPER QUADRANT LEAKING. RIGHTER ARM PICC LINE INFUSING D5W/0.45 NS WITH 20 MEQ K AT 20 ML/HR. NOTED PATIENT TO BE NPO AFTER MIDNIGHT FOR SURGERY. PATIENT HAS SACRA REDNESS. PATIENT C/O PAIN, NAUSEA AND ANXIETY WILL MEDICATE. V/S STABLE.
[2019-01-14] MEDS: SENNA 8.6 MG TAB PO SCH (19:50)
[2019-01-14] MEDS: AMITRIPTYLINE 25 MG TAB PO SCH (19:50)
--- NOTE | 2019-01-14 20:05 | NUR ---
ALL SCHEDULED MEDICATIONS GIVEN, GAVE TORADOL AND ZOFRAN FOR NAUSEA. CLEANED AND REPOSITIONED PATIENT.
--- NOTE | 2019-01-14 22:42 | NUR ---
SLEEPING IN BED WILL CONTINUE TO MONITOR
[2019-01-14] MEDS: POTASSIUM CHL 20 MEQ/D5-1/2NS 1,000 ML IV SCH (22:43)
--- NOTE | 2019-01-14 23:05 | NUR ---
PATIENT C/O PAIN GAVE MORPHINE
[2019-01-14 23:53] VITALS: BP 130/74
--- NOTE | 2019-01-14 23:58 | NUR ---
REQUEST FOR MEDICAL RECORDS FROM [facility] REGARDING PREVIOUS COLOSCOPY AND BIOPSY RESULTS FOR DR GARCIA IS SIGNED AND IN CHART
[2019-01-15] MEDS: ONDANSETRON 4 MG/2 ML VIAL IM/IVP PRN ×3 (00:24→13:30)
[2019-01-15] MEDS: POTASSIUM CHL 20 MEQ/D5-1/2NS 1,000 ML IV SCH (00:31)
--- NOTE | 2019-01-15 00:34 | NUR ---
GAVE ZOFRAN FOR NAUSEA AND STARTED IVF D5W AND 0.45 NS WITH 20 MEQ K INFUSING AT 130 ML/HR
--- NOTE | 2019-01-15 01:04 | NUR ---
PATIENT REQUESTING PAIN MEDICATION WILL MEDICATE ACCORDING TO ORDER
[2019-01-15] MEDS: KETOROLAC 15 MG/ML VIAL IVP PRN (02:03)
--- NOTE | 2019-01-15 02:29 | NUR ---
SLEEPING IN BED, NO SIGNS OF DISTRESS OR PAIN
--- NOTE | 2019-01-15 04:39 | NUR ---
SLEEPING IN BED WILL CONTINUE TO MONITOR
[2019-01-15] MEDS: LEVOTHYROXINE 0.1 MG TAB PO SCH (04:56)
[2019-01-15] MEDS: MORPHINE SULFATE 2 MG/ML SYR IVP PRN (04:57)
--- NOTE | 2019-01-15 05:39 | NUR ---
GAVE MORPHINE AND ZOFRAN
--- NOTE | 2019-01-15 07:24 | NUR ---
ENDORSED PATIENT TO DAY SHIFT NURSE FOR CONTINUITY OF CARE. PATIENT STABLE.
--- NOTE | 2019-01-15 07:25 | NUR ---
RECEIVED BEDSIDE REPORT FROM RETAIL LOSS PREVENTION INVESTIGATOR NURSE. PATIENT IS AWAKE, ALERT AND ORIENTEDX4. NO SIGNS OF DISTRESS ON RA. SKIN HAS INCONTINENT DERMATITIS. FALL RISK PROTOCOL IN PLACE D/T WEAKNESS. COLOSTOMY IN PLACE, LEAKING, CLEANSED PATIENT. SHARONDA PICC LINE INFUSING D5 1/2NS W KCL 20MEG AT 130. CLEAN, DRY AND INTACT. PATIENT IS NPO FOR PROCEDURE. PATIENT IS INCONTINENT. BED IN LOW POSITION. CALL LIGHT WITHIN REACH. WILL CONTINUE TO MONITOR THE PATIENT.
[2019-01-15 08:00] VITALS: BP 126/64
[2019-01-15 08:41] LABS: MAGNESIUM 1.6 mg/dL (1.8-2.4); PHOSPHORUS 3.3 mg/dL (2.5-4.9)
[2019-01-15 08:44] LABS: ANION GAP 11.1 (8-16); CARBON DIOXIDE 24.4 mmol/L (21-32); CREATININE 0.8 mg/dL (0.6-1.3); POTASSIUM 4.5 mmol/L (3.5-5.1)
--- NOTE | 2019-01-15 08:45 | NUR ---
PATIENT PICKED UP BY OR STAFF. PATIENT LEFT IN STABLE CONDITION.
[2019-01-15] MEDS ORDERED: fentaNYL 0.05 MG/ML VIAL ONE (08:49)
[2019-01-15] MEDS ORDERED: MIDAZOLAM 2 MG/2 ML VIAL ONE (08:49)
[2019-01-15 08:51] LABS: BASOPHILS % (AUTO) 0.5 % (0.0-2.0); EOSINOPHILS # (AUTO) 0.3 K/uL (0-0.4); EOSINOPHILS % (AUTO) 6.2 % (0.0-4.0); HEMATOCRIT 32.5 % (36-48); HEMOGLOBIN 10.4 g/dL (12.0-16.0); LYMPHOCYTES # (AUTO) 1.9 K/uL (2.5-16.5); LYMPHOCYTES % (AUTO) 35.2 % (20.5-51.1); MEAN CORPUSCULAR HEMOGLOBIN 26 pg (27-31); MEAN CORPUSCULAR HGB CONC 32 g/dL (33-37); MEAN CORPUSCULAR VOLUME 80.7 fL (80-94); MONOCYTES # (AUTO) 0.4 K/uL (0.8-1.0); MONOCYTES % (AUTO) 6.8 % (1.7-9.3); NEUTROPHILS # (AUTO) 2.7 K/uL (1.8-7.7); NEUTROPHILS % (AUTO) 51.3 % (42.2-75.2); PLATELET COUNT (AUTO) 244 K/uL (140-450); RED BLOOD CELL COUNT(AUTO) 4.03 MIL/uL (4.20-5.40); RED CELL DISTRIBUTION WIDTH 23.1 % (11.6-13.7); WHITE BLOOD COUNT (AUTO) 5.3 K/uL (4.8-10.8)
[2019-01-15] MEDS: METOCLOPRAMIDE 10 MG TAB PO SCH ×4 (09:00→18:03)
[2019-01-15] MEDS ORDERED: ceFAZolin 1,000 MG VIAL ONE (09:23)
[2019-01-15] MEDS ORDERED: BUPIVACAINE-MPF 0.25% 30 ML VIAL INJ ONE (09:23)
[2019-01-15] MEDS ORDERED: PIPERACILLIN/TAZOBACTAM 3.375 GM VIAL IV ONE (09:32)
[2019-01-15] MEDS ORDERED: HYDROmorphone 1 MG/ML AMP IVP PRN ×2 (09:45→11:00)
[2019-01-15] MEDS ORDERED: ONDANSETRON 4 MG/2 ML VIAL IVP PRN (09:45)
[2019-01-15 09:50] LABS: PROTHROMBIN TIME 9.6 secs (10.8-13.4)
[2019-01-15] MEDS ORDERED: MORPHINE SULFATE 2 MG/ML SYR IVP PRN ×2 (11:00→12:35)
[2019-01-15] MEDS ORDERED: MORPHINE SULFATE 4 MG/ML SYR IV PRN (11:00)
[2019-01-15] MEDS: HYDROmorphone PFS 2 MG/ML SYR ONE ×2 (11:00→11:10)
[2019-01-15 11:35] VITALS: BP 113/62
--- NOTE | 2019-01-15 11:35 | NUR ---
PATIENT BACK FROM OR IN STABLE CONDITION. VITALS ARE WITHIN NORMAL LIMITS. SEE VITALS IN INTERVENTIONS.
[2019-01-15 11:50] VITALS: BP 112/55
[2019-01-15 12:05] VITALS: BP 117/61
[2019-01-15] MEDS ORDERED: SORBITOL 70% 30 ML UDC PO SCH (12:15)
[2019-01-15 12:20] VITALS: BP 116/49
[2019-01-15] MEDS: busPIRone 5 MG TAB PO SCH ×2 (12:25→20:43)
[2019-01-15] MEDS: LACTOBACILLUS RHAMNOSUS GG 1 EACH CAP PO SCH (12:25)
[2019-01-15] MEDS: ASCORBIC ACID 500 MG TAB PO SCH (12:25)
[2019-01-15] MEDS: SENNA 8.6 MG TAB PO SCH (12:25)
[2019-01-15] MEDS: SPIRONOLACTONE 25 MG TAB PO SCH (12:26)
[2019-01-15] MEDS: LATUDA 80 MG PO SCH (12:26)
[2019-01-15] MEDS: POLYETHYLENE GLYCOL 17 GM/PKT PO SCH (12:26)
--- NOTE | 2019-01-15 12:34 | NUR ---
ADMINISTERED MEDS. PATIENT TOLERATED WELL. EDUCATED ON SIDE EFFECTS. PATIENT EATING NOW. WILL CONTINUE TO MONITOR THE PATIENT
[2019-01-15 12:35] VITALS: BP 126/57
[2019-01-15] MEDS ORDERED: NACL 0.9% 1,000 ML IV SCH (12:35)
[2019-01-15] MEDS ORDERED: SENN-74 PO (13:09)
--- NOTE | 2019-01-15 13:53 | NUR ---
ADMINISTERED PRN NAUSEA MED, IVF AND MAGNESIUM. PATIENT TOLERATED WELL AND EDUCATED ON SIDE EFFECTS. WILL CONTINUE TO MONITOR THE PATIENT
[2019-01-15] MEDS ORDERED: MAG SULF 2000 MG/WATER PREMIX 50 ML IV SCH (14:00)
--- NOTE | 2019-01-15 14:41 | NUR ---
PATIENT SITTING IN BED WATCHING TV. NO SIGNS OF DISTRESS. WILL CONTINUE TO MONITOR THE PATIENT
--- NOTE | 2019-01-15 16:00 | NUR ---
PATIENT RESTING IN BED. NO SIGNS OF DISTRESS. WILL CONTINUE TO MONITOR THE PATIENT
[2019-01-15] MEDS: HYDROcodone/APAP 10/325 MG 1 TAB TAB PO PRN (18:03)
--- NOTE | 2019-01-15 18:05 | NUR ---
ADMINISTERED JESSICA MED AND PRN PAIN MED. PATIENT TOLERATED WELL. EATING AT THIS TIME. WILL CONTINUE TO MONITOR
--- NOTE | 2019-01-15 19:15 | NUR ---
COLOSTOMY BAG LEAKING. CHANGED BAG, TOLD OUT PATIENT THERAPIST TO CLEAN THE PATIENT. GAVE BEDSIDE REPORT TO EMPLOYEE RELATIONS CONSULTANT NURSE. PATIENT ENDORSED IN STABLE CONDITION
--- NOTE | 2019-01-15 19:16 | NUR ---
RECEIVED BEDSIDE REPORT FROM FLORA SOTO. A/O X4. ABLE TO MAKE NEEDS KNOWN. BEDREST. R PICC INFUSING NS @30ML. CLEAN DRY INTACT. COLOSTOMY BAG IN PLACE. CLEAN DRY INTACT. AVELAR BAG IN PLACE. CLEAR LIQUID DIET. FALL RISK PREC IN PLACE. NO DISTRESS NOTED. BED IN LOW POSITION. CALL LIGHT WITHIN REACH. WILL CONTINUE TO MONITOR.
[2019-01-15] MEDS ORDERED: MORPHINE SULFATE 2 MG/ML SYR IVP SCH (20:30)
[2019-01-15] MEDS: AMITRIPTYLINE 25 MG TAB PO SCH (20:50)
--- NOTE | 2019-01-15 21:10 | NUR ---
AWAKE AND ALERT VERBALLY RESPONSIVE TOLERATED INCENTIVE SPIROMETRY THERAPY WELL WITHOUT INCIDENT DEEP BREATHS X 10 REACHED AVERAGE OF 1800 ml OF PREDICTED OF 2050 ml ENCOURAGED PATIENT WITH ACKNOWLEDGEMENT TO USE INCENTIVE SPIROMETRY EVERY 1-2 HOURS WHILE AWAKE
--- NOTE | 2019-01-15 21:42 | NUR ---
MORPHINE REASSESSMENT AT THIS TIME. NO PAIN AT THIS TIME. COLOSTOMY BAG REMAINS CLEAN DRY AND INTACT. PT STABLE. WILL CONTINUE TO MONITOR.
--- NOTE | 2019-01-15 23:30 | NUR ---
PT AWAKE IN BED WATCHING TV. NO DISTRESS NOTED. PICC LINE INFUSING WELL. WILL CONTINUE TO MONITOR.
[2019-01-16] VITALS: BP 104/52
--- NOTE | 2019-01-16 01:22 | NUR ---
PT AWAKE WATCHING TV. REPOSITIONED. COLOSTOMY BAG CLEAN DRY AND INTACT. WILL CONTINUE TO MONITOR.
[2019-01-16] MEDS: HYDROcodone/APAP 10/325 MG 1 TAB TAB PO PRN ×3 (01:40→20:47)
--- NOTE | 2019-01-16 03:28 | NUR ---
PT ASLEEP IN BED. REPOSITIONED. TOLERATED WELL. NO COMPLAINTS AT THIS TIME. NO DISTRESS NOTED. WILL CONTINUE TO MONITOR.
--- NOTE | 2019-01-16 05:00 | NUR ---
CHANGED COLOSTOMY BAG DUE TO LEAKAGE. CHANGED SOILED GOWN AND LINENS. TOLERATED WELL. NO COMPLAINTS AT THIS TIME. ABLE TO MAKE NEEDS KNOWN. WILL CONTINUE TO MONITOR.
[2019-01-16] MEDS: LEVOTHYROXINE 0.1 MG TAB PO SCH (05:34)
--- NOTE | 2019-01-16 06:22 | NUR ---
PT LAYING IN BED. NO DISTRESS NOTED. PT IN STABLE CONDITION. WILL ENDORSE TO AM SHIFT FOR CONTINUITY OF CARE.
--- NOTE | 2019-01-16 07:20 | NUR ---
RECEIVED BEDSIDE SHIFT REPORT FROM NIGHT NURSE. PT STABLE WITH NO OBVIOUS SIGNS OF DISTRESS AND NO REQUESTS AT THIS TIME. PT PICC LINE INTACT AND PATENT, INFUSING 30ML/HR NORMAL SALINE. PT IS AOX4 WITH REDNESS TO BUTTOCKS, AND PALE REDNESS TO ABDOMINAL SKIN FOLD ON LEFT SIDE. LUNGS CLEAR THROUGHOUT ALL LOBES.
[2019-01-16 07:26] LABS: BASOPHILS % (AUTO) 0.6 % (0.0-2.0); EOSINOPHILS # (AUTO) 0.3 K/uL (0-0.4); EOSINOPHILS % (AUTO) 3.4 % (0.0-4.0); HEMATOCRIT 31.4 % (36-48); HEMOGLOBIN 10.1 g/dL (12.0-16.0); LYMPHOCYTES # (AUTO) 2.1 K/uL (2.5-16.5); LYMPHOCYTES % (AUTO) 27.3 % (20.5-51.1); MEAN CORPUSCULAR HEMOGLOBIN 26 pg (27-31); MEAN CORPUSCULAR HGB CONC 32 g/dL (33-37); MEAN CORPUSCULAR VOLUME 79.8 fL (80-94); MONOCYTES # (AUTO) 0.7 K/uL (0.8-1.0); MONOCYTES % (AUTO) 8.9 % (1.7-9.3); NEUTROPHILS # (AUTO) 4.6 K/uL (1.8-7.7); NEUTROPHILS % (AUTO) 59.8 % (42.2-75.2); PLATELET COUNT (AUTO) 246 K/uL (140-450); RED BLOOD CELL COUNT(AUTO) 3.93 MIL/uL (4.20-5.40); RED CELL DISTRIBUTION WIDTH 23.2 % (11.6-13.7); WHITE BLOOD COUNT (AUTO) 7.7 K/uL (4.8-10.8)
[2019-01-16 08:00] VITALS: BP 121/61
[2019-01-16 08:03] LABS: ANION GAP 11.6 (8-16); CARBON DIOXIDE 24.3 mmol/L (21-32); CREATININE 0.6 mg/dL (0.6-1.3); POTASSIUM 3.9 mmol/L (3.5-5.1)
[2019-01-16 08:18] LABS: MAGNESIUM 1.7 mg/dL (1.8-2.4); PHOSPHORUS 3.5 mg/dL (2.5-4.9)
[2019-01-16] MEDS: POLYETHYLENE GLYCOL 17 GM/PKT PO SCH (08:40)
[2019-01-16] MEDS: MORPHINE SULFATE 2 MG/ML SYR IVP PRN ×2 (08:40→16:16)
[2019-01-16] MEDS: POTASSIUM CHLORIDE 20% 40 MEQ/15 ML UDC GT SCH (08:41)
[2019-01-16] MEDS: SENNA 8.6 MG TAB PO SCH (08:42)
[2019-01-16] MEDS: METOCLOPRAMIDE 10 MG TAB PO SCH ×3 (08:42→17:02)
[2019-01-16] MEDS: busPIRone 5 MG TAB PO SCH ×2 (08:42→20:47)
[2019-01-16] MEDS: SPIRONOLACTONE 25 MG TAB PO SCH (08:42)
[2019-01-16] MEDS: LACTOBACILLUS RHAMNOSUS GG 1 EACH CAP PO SCH (08:42)
[2019-01-16] MEDS: ASCORBIC ACID 500 MG TAB PO SCH (08:42)
--- NOTE | 2019-01-16 08:50 | NUR ---
BRITTANY GAYTAN ADMINISTERED MEDS. EDUCATED ON SIDE EFFECTS. PATIENT TOLERATED WELL. NO SIGNS OF DISTRESS. WILL CONTINUE TO MONITOR THE PATIENT.
--- NOTE | 2019-01-16 08:55 | NUR ---
CHANGED PT COLOSTOMY BAG AND WAFER DUE TO LEAKAGE. STOMA APPEARS BEEFY RED DRAINING BROWN SOFT AND LIQUID STOOL. SIMRAN-AREA HAS REDNESS. ALSO APPLIED NEW INTERDRY CLOTH TO ABDOMINAL FOLD DUE TO SOILING. PT TOLERATED ALL ACTIVITIES WELL. Addendum: 01/16/19 at 1638 by Gauri Whitaker RN EDUCATED PATIENT ON HOW TO CLEANSE AND CHANGE COLOSTOMY BAG NEEDED. PATIENT UNABLE TO CLEANSE AND CHANGE HER STOMA NEEDED. SHE STATES SHE IS "CRIPPLED" AND UNABLE TO DO SO. Addendum: 01/16/19 at 1858 by Smith Mathur RN APPLIED HYDRAGARD TO SACRAL REDNESS.
[2019-01-16] MEDS: LATUDA 80 MG PO SCH (09:23)
--- NOTE | 2019-01-16 10:00 | NUR ---
PATIENT LAYING IN BED. NO SIGNS OF DISTRESS. BED IN LOW POSITION. CALL LIGHT WITHIN REACH. WILL CONTINUE TO MONITOR
--- NOTE | 2019-01-16 10:15 | NUR ---
CALLED [facility] SPOKE TO HEIDI [phone], FAXED PATIENT INFORMATION AND CLINICALS TO [phone]. HEIDI SAID SHE WILL REVIEW AND WILL CALL BACK FOR BED.
[2019-01-16] MEDS ORDERED: MAG SULF 2000 MG/WATER PREMIX 50 ML IV SCH (11:30)
--- NOTE | 2019-01-16 11:32 | NUR ---
CALLED [facility] AND LEFT MESSAGE TO [facility] [phone] [id number] SNF AND TRANSPORTATION AUTHORIZATION. FAXED ORDER TO [phone].
--- NOTE | 2019-01-16 11:48 | NUR ---
ADMINISTERED MEDICATIONS, REVIEWED INDICATION AND SIDE EFFECTS. PT HAS NO SIGNS OF OBVIOUS ACUTE DISTRESS AND NO FURTHER REQUEST.
--- NOTE | 2019-01-16 13:10 | NUR ---
PATIENT EATING. NO SIGNS OF DISTRESS. WILL CONTINUE TO MONITOR THE PATIENT
[2019-01-16] MEDS: ONDANSETRON 4 MG/2 ML VIAL IM/IVP PRN (14:14)
--- NOTE | 2019-01-16 14:14 | NUR ---
ADMINISTERED MEDICATIONS WELL PRN ZOFRAN PER PT REQUEST DUE TO NAUSEA. PT HAS NO OTHER REQUESTS AND NO OBVIOUS SIGNS OF ACUTE DISTRESS.
--- NOTE | 2019-01-16 15:30 | NUR ---
CALLED [facility] [place] [phone], TO FOLLOW-UP WITH SNF AND TRANSPORTATION AUTHORIZATION, LEFT MESSAGE, AWAITING FOR CALL BACK.
[2019-01-16 16:00] VITALS: BP 128/64
--- NOTE | 2019-01-16 16:21 | NUR ---
PT IS FREE OF SIGNS OF OBVIOUS DISTRESS SITTING UP IN BED WITH NO REQUESTS OR COMPLAINTS, BREATHING EQUAL AND UNLABORED.
--- NOTE | 2019-01-16 16:38 | NUR ---
ADMINISTERED SALINE ENEMA TO PATIENT. PT TOLERATED WELL WITH NO PAIN. NO OBVIOUS SIGNS OF ACUTE DISTRESS AT THIS TIME.
--- NOTE | 2019-01-16 17:07 | NUR ---
NOTIFIED DR. BARROS TO PT STATING SHE IS IN 10/ PAIN AND REQUESTING FURTHER PAIN MEDICATIONS. AWAITING FURTHER ORDERS.
[2019-01-16] MEDS ORDERED: MORPHINE SULFATE 2 MG/ML SYR IVP SCH (17:15)
[2019-01-16] MEDS ORDERED: KETOROLAC 15 MG/ML VIAL IM SCH (17:30)
[2019-01-16] MEDS ORDERED: KETOROLAC 15 MG/ML VIAL IVP SCH (17:45)
--- NOTE | 2019-01-16 17:49 | NUR ---
ADMINISTERED TORADOL MEDICATION PER ORDERED. PER DR. BARROS INSTRUCTION, TO REASSESS PAIN IN 30 MINUTES AND ADMINISTER MORPHINE MEDICATION IF PAIN IS NOT TOLERABLY CONTROLLED.
--- NOTE | 2019-01-16 18:28 | NUR ---
PT IS EATING SITTING UP IN BED WITH NO SIGNS OF ACUTE DISTRESS.
[2019-01-16] MEDS: HYDRAGUARD CREAM TP PRN (18:59)
--- NOTE | 2019-01-16 19:10 | NUR ---
GAVE BEDSIDE REPORT TO NIGHT NURSE. PT STABLE WITH NO COMPLAINTS AT THIS TIME. ENDORSED NIGHT NURSE IN REGARDS TO NECESSARY PAIN REASSESSMENT NEEDED AT 1918.
--- NOTE | 2019-01-16 19:30 | NUR ---
ASSUMED CARE OF PATIENT, AWAKE, ALERT AND ORIENTED. NO COMPLAINS. CALL LIGHT WITHIN REACH.
--- NOTE | 2019-01-16 20:00 | NUR ---
REPOSITIONED BY TURKEY FARMER. AVELAR CATHETER DRAINING WELL. COLOSTOMY DRAINING WELL. IVF INFUSING WELL. NO COMPLAINS. CARE BOARD UPDATED. PLAN OF CARE DISCUSSED WITH PATIENT, VERBALIZED UNDERSTANDING WELL. CALL LIGHT WITHIN REACH.
[2019-01-16] MEDS: AMITRIPTYLINE 25 MG TAB PO SCH (20:47)
--- NOTE | 2019-01-16 21:15 | NUR ---
DUE MEDS GIVEN. NORCO GIVEN REQUESTED. CALL LIGHT WITHIN REACH.
[2019-01-16 23:29] VITALS: BP 121/63
--- NOTE | 2019-01-16 23:39 | NUR ---
ASLEEP EASILY AROUSABLE. NO COMPLAINS. CALL LIGHT WITHIN REACH.
--- NOTE | 2019-01-17 02:00 | NUR ---
ASLEEP NO COMPLAINS. CALL LIGHT WITHIN REACH.
[2019-01-17] MEDS: MORPHINE SULFATE 2 MG/ML SYR IVP PRN (04:07)
--- NOTE | 2019-01-17 04:17 | NUR ---
PAIN MEDS GIVEN PER REQUEST. COLOSTOMY CARE AND COLOSTOMY BAG CHANGE. CALL LIGHT WITHIN REACH. REPOSITIONED.
[2019-01-17] MEDS: HYDROcodone/APAP 10/325 MG 1 TAB TAB PO PRN (05:23)
[2019-01-17] MEDS: LEVOTHYROXINE 0.1 MG TAB PO SCH (05:23)
[2019-01-17 06:47] LABS: BASOPHILS % (AUTO) 0.7 % (0.0-2.0); EOSINOPHILS # (AUTO) 0.4 K/uL (0-0.4); EOSINOPHILS % (AUTO) 6.1 % (0.0-4.0); HEMATOCRIT 31.6 % (36-48); HEMOGLOBIN 10.2 g/dL (12.0-16.0); LYMPHOCYTES # (AUTO) 1.7 K/uL (2.5-16.5); LYMPHOCYTES % (AUTO) 24.2 % (20.5-51.1); MEAN CORPUSCULAR HEMOGLOBIN 26 pg (27-31); MEAN CORPUSCULAR HGB CONC 32 g/dL (33-37); MEAN CORPUSCULAR VOLUME 80.2 fL (80-94); MONOCYTES # (AUTO) 0.7 K/uL (0.8-1.0); MONOCYTES % (AUTO) 10.1 % (1.7-9.3); NEUTROPHILS # (AUTO) 4.2 K/uL (1.8-7.7); NEUTROPHILS % (AUTO) 58.9 % (42.2-75.2); PLATELET COUNT (AUTO) 246 K/uL (140-450); RED BLOOD CELL COUNT(AUTO) 3.94 MIL/uL (4.20-5.40); RED CELL DISTRIBUTION WIDTH 22.9 % (11.6-13.7); WHITE BLOOD COUNT (AUTO) 7.1 K/uL (4.8-10.8)
[2019-01-17 07:08] LABS: ANION GAP 9.9 (8-16); CREATININE 0.7 mg/dL (0.6-1.3); POTASSIUM 3.9 mmol/L (3.5-5.1)
[2019-01-17 07:14] LABS: MAGNESIUM 1.6 mg/dL (1.8-2.4); PHOSPHORUS 3.5 mg/dL (2.5-4.9)
--- NOTE | 2019-01-17 07:35 | NUR ---
ENDORSED CARE AT BEDSIDE WITH KENDAL SOTO, PATIENT IN STABLE CONDITION.
--- NOTE | 2019-01-17 07:36 | NUR ---
RECEIVED ENDORSEMENT FROM COMMISSIONED SECURITY OFFICER NURSE. PT IS AAOX4, RESPIRATIONS ARE EVEN AND UNLABORED ON ROOM AIR. DENIES ANY PAIN AT THIS TIME. FC NOTED AND DRAINING CLEAR YELLOW URINE. COLOSTOMY NOTED AND DRAINING BROWN LIQUID STOOL. RIGHT UPPER PICC INTACT SL. PLAN OF CARE WAS REVIEWED WITH PT. PT VERBALIZED UNDERSTANDING. SAFETY MEASURES IN PLACE, CALL LIGHT WITHIN REACH. WILL CONTINUE TO MONITOR.
[2019-01-17 08:00] VITALS: BP 104/69
--- NOTE | 2019-01-17 09:30 | NUR ---
ADMINISTERED SCHEDULED MEDICATIONS. PT C/O OF PAIN, WISHES TO HAVE MORPHINE AGAIN. NOTIFIED . WILL COME TALK TO THE PT.
[2019-01-17] MEDS: SENNA 8.6 MG TAB PO SCH (09:46)
[2019-01-17] MEDS: SPIRONOLACTONE 25 MG TAB PO SCH (09:46)
[2019-01-17] MEDS: LACTOBACILLUS RHAMNOSUS GG 1 EACH CAP PO SCH (09:46)
[2019-01-17] MEDS: METOCLOPRAMIDE 10 MG TAB PO SCH ×3 (09:46→17:19)
[2019-01-17] MEDS: busPIRone 5 MG TAB PO SCH (09:46)
[2019-01-17] MEDS: ASCORBIC ACID 500 MG TAB PO SCH (09:46)
[2019-01-17] MEDS: POLYETHYLENE GLYCOL 17 GM/PKT PO SCH (09:47)
[2019-01-17] MEDS: POTASSIUM CHLORIDE 20% 40 MEQ/15 ML UDC GT SCH (09:47)
[2019-01-17] MEDS: MAG SULF 2000 MG/WATER PREMIX 50 ML IV SCH ×2 (09:54→11:29)
[2019-01-17] MEDS: LATUDA 80 MG PO SCH (10:30)
[2019-01-17] MEDS ORDERED: SENN17.25 PO (10:39)
[2019-01-17] MEDS ORDERED: METO10TA98 PO (10:39)
[2019-01-17] MEDS ORDERED: SYN.1 PO (10:39)
[2019-01-17] MEDS ORDERED: SPIR25TA PO (10:39)
[2019-01-17] MEDS ORDERED: Potassium Chloride 20% PO (10:39)
[2019-01-17] MEDS ORDERED: ONDA-24 PO (10:39)
[2019-01-17] MEDS ORDERED: POLY17PD46 PO (10:39)
[2019-01-17] MEDS ORDERED: BUS5 PO (10:39)
[2019-01-17] MEDS ORDERED: ACET-9494 PO (10:39)
[2019-01-17] MEDS ORDERED: BISACODYL 10 MG SUPP RC SCH (11:00)
--- NOTE | 2019-01-17 11:20 | NUR ---
ADMINISTERED PAIN MEDICATION. CHANGED COLOSTOMY BAG, DRAINING BROWN STOOL. YUNI CONTINUE TO MONITOR.
[2019-01-17] MEDS: oxyCODONE/APAP 5/325 MG 1 TAB TAB PO PRN ×2 (11:27→15:38)
--- NOTE | 2019-01-17 13:52 | NUR ---
FAXED PT SAHIL AND NOTES TO [facility] [phone] AND TO [facility] [place] [phone].
--- NOTE | 2019-01-17 14:26 | NUR ---
CALLED [facility] AND LEFT MESSAGE [phone], WAITING FOR CALL BACK.
--- NOTE | 2019-01-17 14:50 | NUR ---
CALLED [facility] OF [facility] [phone] SPOKE TO FELIPA TO FOLLOW-UP AUTHORIZATION TO TRANSFER PATIENT TO [facility] [place] , AWAITING FOR CALL BACK.
--- NOTE | 2019-01-17 15:41 | NUR ---
PT C/O OF 8 PAIN. ADMINISTERED PRN PERCOCET. WILL CONTINUE TO MONITOR.
[2019-01-17 16:00] VITALS: BP 124/63
[2019-01-17] MEDS: ONDANSETRON 4 MG/2 ML VIAL IM/IVP PRN (16:15)
--- NOTE | 2019-01-17 16:19 | NUR ---
CALLED [facility] SPOKE TO HEIDI [phone]. I GAVE HER AUTHORIZATION FOR SKILLED [phone]. PATIENT WILL GO TO ROOM 51B AND ADMITTING MD IS DR PATEL. TRANSPORTATION ARRANGED THRU [facility], CALLED [phone] SPOKE TO LIGIA. PICKED UP TIME WILL BE 7PM, BRITTANY BOWIE MADE AWARE.
--- NOTE | 2019-01-17 16:41 | NUR ---
PT C/O OF NAUSEA, NO VOMITING. ADMINISTERED PRN ZOFRAN IVP. WILL CONTINUE TO MONITOR.
--- NOTE | 2019-01-17 17:33 | NUR ---
GAVE REPORT TO RN AT [facility]. ANSWERED ALL QUESTIONS. NOTIFIED DAUGHTER CIRA OF TRANSFER BACK TO [facility]. Addendum: 01/17/19 at 1742 by Carlota Castro RN REPORT TO BRITTANY ORELLANA
--- NOTE | 2019-01-17 18:05 | NUR ---
GAVE DISCHARGE INSTRUCTION TO PT ON MEDICATIONS, CARE OF STOMA, AND PLAN OF CARE. PT VERBALIZED UNDERSTANDING. PT IS STABLE, AWAITING TRANSPORT.
--- NOTE | 2019-01-17 19:15 | NUR ---
PT DISCHARGED. EMT TOOK PT VIA GURNEY. PT IS STABLE AT THIS TIME. ALL BELONGINGS LEFT WITH PT. ID BAND WAS CUT. REPORT AND DOCUMENTS GIVEN TO EMT.
== END 2019-01-17 19:15 | DRG 231 ==
LOC: MED 19:32 → MTU 21:49
PROVIDERS: ADMIT General Practice; ATTEND General Practice
PROC: 02HV33Z Insertion of Infusion Device into Superior Vena Cava, Percutaneous Approach (ICD-10-PCS; 2019-01-09)
PROC: B548ZZA Ultrasonography of Superior Vena Cava, Guidance (ICD-10-PCS; 2019-01-09)
PROC: 0D9670Z Drainage of Stomach with Drainage Device, Via Natural or Artificial Opening (ICD-10-PCS; 2019-01-09)
PROC: 0D1N0Z4 Bypass Sigmoid Colon to Cutaneous, Open Approach (ICD-10-PCS; principal; 2019-01-15 09:00)
DX: K94.03 Colostomy malfunction (principal); K56.609 Unspecified intestinal obstruction, unspecified as to partial versus complete obstruction; E11.40 Type 2 diabetes mellitus with diabetic neuropathy, unspecified; E11.21 Type 2 diabetes mellitus with diabetic nephropathy; E87.1 Hypo-osmolality and hyponatremia; F11.20 Opioid dependence, uncomplicated; I48.91 Unspecified atrial fibrillation; G40.909 Epilepsy, unspecified, not intractable, without status epilepticus; F20.9 Schizophrenia, unspecified; E66.9 Obesity, unspecified; N39.0 Urinary tract infection, site not specified; K59.00 Constipation, unspecified; G89.4 Chronic pain syndrome; J44.9 Chronic obstructive pulmonary disease, unspecified; M19.90 Unspecified osteoarthritis, unspecified site; D64.9 Anemia, unspecified; E03.9 Hypothyroidism, unspecified; Y83.8 Other surgical procedures as the cause of abnormal reaction of the patient, or of later complication, without mention of misadventure at the time of the procedure; E87.6 Hypokalemia; Z68.34 Body mass index [BMI] 34.0-34.9, adult; Z71.3 Dietary counseling and surveillance; Z86.73 Personal history of transient ischemic attack (TIA), and cerebral infarction without residual deficits; Z90.710 Acquired absence of both cervix and uterus; Z88.8 Allergy status to other drugs, medicaments and biological substances; Z79.899 Other long term (current) drug therapy; Z82.49 Family history of ischemic heart disease and other diseases of the circulatory system; Z87.891 Personal history of nicotine dependence
CPT/HCPCS: 36415; 44388; 71045; 74018; 76770; 80048; 80053; 80305; 81001; 82140; 83036; 83605; 83615; 83690; 83735; 84100; 84134; 84443; 85025; 85610; 85730; 86886; 86900; 86901; 87040; 87081; 87086; 88305; 93005; 94640; 96361; 96365; 96375; 97110; 99291; C1751; J0690; J0696; J1170; J1200; J1885; J2250; J2270; J2405; J2543; J3010; J3475; J3490; J7030; J7042; J7060; J7620; J8597; Q0092; Q9967

== ENCOUNTER 2019-01-22 15:08 | Inpatient (IN) | payer OTHER, MEDICARE ==
[~2019-01-22] VITALS: Ht 167.6 cm; Wt 83.9 kg
[~2019-01-22 15:08] MED LIST changes: +ACET-9494 PO; -BISA-213 RC; +BUS5 PO; -DOCU-299 PO; -GLU1I IM; -HYDR-5092 PO; -LACT10CA1 PO; -LACT10SO11 PO; -METO-485 PO; +METO10TA98 PO; +ONDA-24 PO; -PHE25S RC; -Potassium Chloride 20% GT; +Potassium Chloride 20% PO; -SENN-74 PO; +SENN17.25 PO; -SIME80CT27 PO; -SLIDE SUBQ; +SYN.1 PO
[2019-01-22 15:28] VITALS: BP 96/66
--- NOTE | 2019-01-22 17:16 | NUR ---
Patient transferred to bed 6. RN evaluating patient at bedside.
--- NOTE | 2019-01-22 17:16 | NUR ---
ABHISHEK FROM [facility] FOR PROBLEM WITH COLOSTOMY. PT WAS REFERR[place] BY WOUND CARE [place] [facility]. [place] HAS COLOSTOMY REVISION ON 01/[address] Poncho MOY [place] [facility] UPON CHANGING THE COLOSTOMY ON LUQ BY WOUND CARE NURSE, NURSE SAW THAT THE INTESTINE WENT INSIDE. STOMA ON LUQ PINK AND MOIST WITH WATERY STOOL OUTPUT. PT STATES PAIN 8/10 TO LOWER ABDOMEN. PT AFEBRILE, DENIES N/V, DIZZINESS, SOB. PT PLACED ON FULL MUNICIPAL CLERK. HOB UP. BED SIDE RAILS UP X1. ON LOW BED POSITION, LOCKED. ER MADE AWARE OF PT STATUS.
--- NOTE | 2019-01-22 17:45 | NUR ---
DR Hurst, SURGEON, AND DR LEVY AT BEDSIDE FOR PT EVALUATION
--- NOTE | 2019-01-22 17:47 | NUR ---
DR Hurst ASSESSING STOMA AND SUCTIONING STOOL OUT OF IT. PT TOLERATING WELL.
[2019-01-22] MEDS ORDERED: NACL 0.9% 1,000 ML IV ONE (17:50)
[2019-01-22 18:06] LABS: BASOPHILS # (AUTO) 0.1 K/uL (0.00-0.22); BASOPHILS % (AUTO) 1.5 % (0.0-2.0); EOSINOPHILS # (AUTO) 0.4 K/uL (0-0.4); EOSINOPHILS % (AUTO) 4.3 % (0.0-4.0); HEMATOCRIT 34.7 % (36-48); LYMPHOCYTES # (AUTO) 2.7 K/uL (2.5-16.5); MEAN CORPUSCULAR HEMOGLOBIN 25 pg (27-31); MEAN CORPUSCULAR HGB CONC 32 g/dL (33-37); MEAN CORPUSCULAR VOLUME 78.9 fL (80-94); MONOCYTES # (AUTO) 0.7 K/uL (0.8-1.0); MONOCYTES % (AUTO) 8.3 % (1.7-9.3); NEUTROPHILS # (AUTO) 4.5 K/uL (1.8-7.7); NEUTROPHILS % (AUTO) 53.9 % (42.2-75.2); PLATELET COUNT (AUTO) 350 K/uL (140-450); RED CELL DISTRIBUTION WIDTH 21.3 % (11.6-13.7); WHITE BLOOD COUNT (AUTO) 8.3 K/uL (4.8-10.8)
[2019-01-22] MEDS ORDERED: DOCUSATE SODIUM 100 MG GELCAP PO PRN (18:10)
[2019-01-22] MEDS ORDERED: LORazepam 2 MG/ML VIAL IM/IVP PRN (18:10)
[2019-01-22] MEDS ORDERED: ONDANSETRON 4 MG/2 ML VIAL IM/IVP PRN (18:10)
[2019-01-22] MEDS ORDERED: MORPHINE SULFATE 2 MG/ML SYR IVP PRN (18:10)
[2019-01-22] MEDS ORDERED: ZOLPIDEM 5 MG TAB PO PRN (18:10)
[2019-01-22] MEDS ORDERED: HYDROcodone/APAP 5/325 MG 1 TAB TAB PO PRN (18:10)
[2019-01-22 18:19] LABS: ANION GAP 8.9 (8-16); CARBON DIOXIDE 32.4 mmol/L (21-32); CREATININE 0.9 mg/dL (0.6-1.3); POTASSIUM 4.3 mmol/L (3.5-5.1)
--- NOTE | 2019-01-22 18:19 | NUR ---
RADIOLOGY AT BEDSIDE FOR CHEST X RAY
[2019-01-22] MEDS: NACL 0.9% 1,000 ML IV SCH (18:22)
[2019-01-22 18:26] LABS: ALBUMIN 2.9 g/dL (3.4-5.0); TOTAL BILIRUBIN 0.2 mg/dL (0.0-1.0)
[2019-01-22 18:40] LABS: CHOL/HDL RATIO 6.3 (1-4.5); FREE T4 (FREE THYROXINE) 1.13 ng/dL (0.76-1.46); MAGNESIUM 1.7 mg/dL (1.8-2.4); PHOSPHORUS 4.7 mg/dL (2.5-4.9); THYROID STIMULATING HORMONE 2.48 uIU/mL (0.34-3.74)
[2019-01-22 18:46] LABS: PROTHROMBIN TIME 9.2 secs (10.8-13.4)
[2019-01-22] MEDS ORDERED: MORPHINE SULFATE 2 MG/ML SYR IVP STA (19:13)
[2019-01-22 19:14] LABS: APPEARANCE,URINE HAZY (CLEAR); BILIRUBIN,URINE NEGATIVE (NEGATIVE); BLOOD, URINE NEGATIVE (NEGATIVE); COLOR,URINE YELLOW (YELLOW); LEUKOCYTE ESTERASE ,URINE 3+ (NEGATIVE); NITRITE, URINE POSITIVE (NEGATIVE); UGLUCOSE NEGATIVE (NEGATIVE)
--- NOTE | 2019-01-22 19:15 | NUR ---
Pt report given to BRITTANY Ramirez. Transfer of care at this time. Addendum: 01/23/19 at 0032 by XANDERLAVitor NOTE MADE BY IFEOMA LEDESMA RN
[2019-01-22 19:19] LABS: RBC,URINE 0-5 /HPF (0-5)
[2019-01-22 19:20] LABS: BARBITURATE, URINE NEG. ng/ml (NEG <=200); BENZODIAZEPINE, URINE NEG. ng/mL (NEG <=200); CANNABINOID, URINE NEG. ng/mL (NEG <=50); COCAINE, URINE NEG. ng/mL (NEG <=300); OPIATE, URINE NEG. ng/mL (NEG <=2000); PHENCYCLIDINE SCREEN,URINE NEG. ng/mL (NEG <=25)
[2019-01-22] MEDS ORDERED: POTA8TER12 PO (19:30)
[2019-01-22] MEDS ORDERED: LORA-476 PO (19:31)
[2019-01-22] MEDS ORDERED: BUS5 PO (19:32)
--- NOTE | 2019-01-22 19:34 | NUR ---
Patient will be admitted to care of DR. STRONG. Admited to [facility]. Will go to room 120B. Belongings list completed. Report to JORDY RN AT BEDSIDE.
[2019-01-22 19:35] VITALS: BP 100/57
--- NOTE | 2019-01-22 19:35 | NUR ---
ADMITTED PATIENT 63 FEMALE FROM ER CAME BY LEMUEL DUE TO MALFUNCTION COLOSTOMY MED SURG. PATIENT AWAKE AND ALERT AND ORIENTED X4 BEDREST WITH GENERALIZED WEAKNESS WITH LEFT HAND CONTRACTURED. NO COMPLAIN OF DISCOMFORT AT THIS TIME ,NORMAL SALINE INFUSING ON RIGHT UPPER ARM PICC LINE DOUBLE LUMEN BOTH CLEAR AND PATENT. PATIENT ORIENTED TO HOSPITAL ROUTINE ,PUT PATIENT ON FALL RISK PROTOCOL ,CHANGED GOWN AND PUT ON NONSKID SOCKS ,MRSA NARES SPECIMEN COLLECTED AND SENT TO LAB.WILL CONTINUE TO MONITOR
--- NOTE | 2019-01-22 20:30 | NUR ---
DR. STALEY, RESIDENT MD AWARE ABOUT THE BLANCHABLE REDNESS ON THE SACRAL AREA. HE SAID HE WILL ORDER HYDRA GUARD.
[2019-01-22] MEDS ORDERED: DEXTROSE 50% 50 ML SYR IVP PRN (21:05)
--- NOTE | 2019-01-22 21:15 | NUR ---
PT HAD SOME SANDWICH AND JUICE. TOLERATED WELL. MADE AWARE ABOUT NPO AFTER MN.
[2019-01-22] MEDS ORDERED: ALBUTEROL SULFATE/IPRATROPIU 3 ML SOL IH PRN (21:30)
[2019-01-22] MEDS ORDERED: MAGNESIUM OXIDE 400 MG TAB PO SCH (22:00)
--- NOTE | 2019-01-22 22:54 | NUR ---
URINE WITH 4 + BACTERIA. ROCEPHIN 1 GM IVPB STARTED. AND ASLO MAGNESIUM LEVEL 1.7 , MAG OXIDE 400MG PO GIVEN. WILL FOLLOW UP LABS IN AM.
[2019-01-22] MEDS ORDERED: cefTRIAXone 1,000 MG VIAL ONE (22:58)
--- NOTE | 2019-01-22 23:30 | NUR ---
MADE ROUNDS. PT IS ASLEEP. NO S/S OF ANY DISCOMFORT /PAIN NOTED. WILL CONTINUE TO MONITOR.
[2019-01-23] VITALS: BP 111/63
--- NOTE | 2019-01-23 00:30 | NUR ---
KEPT PT NPO AFTER MN PER MD ORDER. PT MADE AWARE .
--- NOTE | 2019-01-23 02:00 | NUR ---
MADE ROUNDS. PT SLEEPING AT THIS TIME. NO S/S OF ANY DISCOMFORT NOTED.
[2019-01-23] MEDS: NACL 0.9% 1,000 ML IV SCH ×3 (04:07→20:52)
--- NOTE | 2019-01-23 04:21 | NUR ---
PT SLEEPING AFTER PAIN MED GIVEN. WILL CONTINUE TO MONITOR.
[2019-01-23] MEDS: ACETAMINOPHEN 325 MG TAB PO PRN ×2 (04:59→20:50)
--- NOTE | 2019-01-23 06:40 | NUR ---
BLOOD SUGAR THIS AM 131. NO INSULIN NEEDED.
--- NOTE | 2019-01-23 07:28 | NUR ---
WILL ENDORSED PT IN STABLE CONDITION TO AM NURSE FOR CONTINUITY OF CARE.
[2019-01-23] MEDS ORDERED: BLOOD GLUCOSE MONITORING 1 DEV DEV FS SCH (07:30)
--- NOTE | 2019-01-23 07:40 | NUR ---
Report received from night nurse Santa, Pt awake a/o appropriate for age and able to communicate needs. Pt denies n/v, pain at this time, maintained NPO per order IVF infusing well. No s/s of acute distress noted at this time. Call light and safety precautions in place, personal items within reach, will continue to monitor.
[2019-01-23 08:00] VITALS: BP 100/56
[2019-01-23] MEDS: ALBUTEROL SULFATE/IPRATROPIU 3 ML SOL IH SCH ×3 (08:09→20:22)
--- NOTE | 2019-01-23 08:30 | NUR ---
Colostomy bag full w semi soft stool, appliance no longer intact, appliance changed, pt tolerated change well. Pt remains a/o appropriate for age and able to communicate needs. Call light and safety precautions in place, personal items within reach, will continue to monitor
[2019-01-23] MEDS ORDERED: METOCLOPRAMIDE HCL 10 MG PO SCH (09:00)
[2019-01-23] MEDS ORDERED: NON-FORMULARY ITEM (Cranberry Fruit Concentrate (Cranberry) 450 MG) PO SCH (09:00)
[2019-01-23] MEDS ORDERED: LURASIDONE HCL 80 MG PO SCH (09:00)
[2019-01-23] MEDS ORDERED: LORazepam 1 MG TAB PO SCH (09:00)
[2019-01-23] MEDS ORDERED: NON-FORMULARY ITEM (Spironolactone (Aldactone) 25 MG) PO SCH (09:00)
[2019-01-23] MEDS ORDERED: POLYETHYLENE GLYCOL 17 GM PO SCH (09:00)
[2019-01-23] MEDS ORDERED: SENNOSIDES 17.2 MG PO SCH (09:00)
--- NOTE | 2019-01-23 09:01 | NUR ---
PATIENT HAS BEEN SCREENED AND CATEGORIZED MODERATE NUTRITION RISK. PATIENT WILL BE SEEN WITHIN 3-5 DAYS OF ADMISSION. 01/25/19ABDIRASHID MACK RD
[2019-01-23] MEDS: METOCLOPRAMIDE 10 MG TAB PO SCH ×3 (09:09→16:10)
[2019-01-23] MEDS: SPIRONOLACTONE 25 MG TAB PO SCH (09:10)
[2019-01-23] MEDS: FERROUS SULFATE 325 MG TABEC PO SCH (09:10)
[2019-01-23] MEDS: LACTOBACILLUS RHAMNOSUS GG 1 EACH CAP PO SCH (09:11)
[2019-01-23] MEDS: POLYETHYLENE GLYCOL 17 GM/PKT PO SCH (09:11)
[2019-01-23] MEDS: LORazepam 1 MG TAB PO SCH ×2 (09:11→20:51)
[2019-01-23] MEDS: busPIRone 5 MG TAB PO SCH (09:11)
[2019-01-23] MEDS: SENNA 8.6 MG TAB PO SCH ×2 (09:12→20:51)
[2019-01-23] MEDS: GABAPENTIN 100 MG CAP PO SCH ×2 (09:12→20:50)
[2019-01-23] MEDS: POTASSIUM CHLORIDE 8 MEQ TABER PO SCH (09:12)
[2019-01-23] MEDS: OXcarbazepine 150 MG TAB PO SCH ×2 (09:13→20:51)
[2019-01-23] MEDS: ASCORBIC ACID 500 MG TAB PO SCH (09:13)
[2019-01-23] MEDS: oxyCODONE/APAP 5/325 MG 1 TAB TAB PO PRN ×3 (09:15→21:34)
--- NOTE | 2019-01-23 10:00 | NUR ---
Pt awake a/o able to communicate needs, family at bedside. Pt denies n/v, pain at this time. Call light and safety precautions in place, personal items within reach, will continue to monitor
--- NOTE | 2019-01-23 12:00 | NUR ---
Pt awake a/o able to communicate needs. Pt denies gastric distress, at this time. Provided education on PICC line dressing change, dressing changed using sterile technique, Pt tolerated dressing change well, applied silicone based dressing to coccyx for skin prophylaxis, provided education on repositioning every two hrs and pressure injury prevention, verbalized understanding. No s/s of acute distress noted. Call light and safety precautions in place, personal items within reach, will continue to monitor
--- NOTE | 2019-01-23 13:20 | NUR ---
PT REJECTED HHNTX. SAID SHE DID NOT FEEL ANY SOB . NO INCREASED WOB NOTED. PT SATURATION ON ROOM AIR IS 96%. PT BREATH SOUNDS CLEAR
--- NOTE | 2019-01-23 14:00 | NUR ---
Notified Dr Cardona that pt received soft diet for lunch, tolerated well without n/v; no new orders. Pt remains a/o denies gastric distress, no s/s of acute distress noted at this time. Call light and safety precautions in place, personal items within reach, will continue to monitor.
--- NOTE | 2019-01-23 15:44 | NUR ---
CASE MANAGEMENT: CM FAXED CLINICAL PACKET AND TRANSFER ORDER TO HIGHER LEVEL OF CARE TO [facility] @ [facility] . CM ALSO FAXED CLINICAL PACKET AND TRANSFER ORDER TO [facility] @ [facility] . SPOKE WITH ADRIÁN (BOX OFFICE MANAGER @ [facility]) @ [phone]. SHE WILL BE PRESENTING THE CASE TO THEIR SURGEON AT THE HOSPITAL. WILL CALL US WITH UPDATE. CM TO FOLLOW UP NEEDED.
[2019-01-23 16:00] VITALS: BP 130/69
--- NOTE | 2019-01-23 16:00 | NUR ---
Pt remains a/o appropriate and able to communicate needs. Pt denies sob, pain at this time. No s/s of acute distress noted. Call light and safety precautions in place, personal items within easy reach, will continue to monitor.
--- NOTE | 2019-01-23 18:00 | NUR ---
Pt resting at this time, appears comfortable, no s/s of acute distress noted at this time, call light and safety precautions in place, personal items within reach, will continue to monitor.
--- NOTE | 2019-01-23 19:24 | NUR ---
Report given to night nurse Radha, Pt remained awake a/o appropriate for age throughout shift and able to communicate needs. Pt resting at this time, appears comfortable. No s/s of acute distress noted. Call light and safety precautions in place, personal items within reach.
--- NOTE | 2019-01-23 19:26 | NUR ---
RECEIVED REPORT FROM DAY SHIFT NURSE OLU-RN AT BEDSIDE. PT RESTING IN BED, ON ROOM AIR WITH RIGHT UPPER ARM DOUBLE LUMEN PICC LINE. DISCUSSED PLAN OF CARE AND PT VERBALIZED UNDERSTANDING. NO S/S OF RESPIRATORY DISTRESS OR DISCOMFORT NOTED AT THIS TIME. CONTRACTED HANDS BILATERALLY, SCAB ON NOSE AND SACRAL/COCCYX REDNESS. INCONTINENT WITH COLOSTOMY BAG IN PALCE-DRAINING WELL. BED IN LOWEST POSITION, BED BREAKS ON, BOTH SIDE RAILS UP AND FALL PRECAUTIONS IN PLACE. BEDSIDE TABLE AND CALL LIGHT ARE WITHIN REACH. WILL CONTINUE TO MONITOR.
[2019-01-23 20:00] VITALS: BP 117/69
--- NOTE | 2019-01-23 20:00 | NUR ---
VITAL SIGNS TAKEN AND TOLERATED WELL. NO S/S OF RESPIRATORY DISTRESS OR DISCOMFORT NOTED AT THIS TIME. WILL CONTINUE TO MONITOR.
--- NOTE | 2019-01-23 20:26 | NUR ---
RECEIVED PATIENT ON ROOM AIR, PULSE OX SAT 98%. PATIENT REFUSING BREATHING TREATMENT AT THIS TIME. PATIENT STATES SHE "DOES NOT NEED IT. NOT HAVING ANY TROUBLE BREATHING." NO SOB NOTED AT THIS TIME. NO RESPIRATORY DISTRESS NOTED. WILL CONTINUE TO MONITOR.
[2019-01-23] MEDS: DOCUSATE SODIUM 100 MG GELCAP PO SCH (20:50)
--- NOTE | 2019-01-23 20:52 | NUR ---
SCHEDULED MEDICATION AND TOLERATED WELL. PT C/O HEADACHE- TYLENOL WAS GIVEN AND TOLERATED WELL. NO S/S OF RESPIRATORY DISTRESS OR DISCOMFORT NOTED AT THIS TIME. WILL CONTINUE TO MONITOR.
[2019-01-23] MEDS ORDERED: AMITRIPTYLINE 25 MG TAB PO SCH (21:00)
--- NOTE | 2019-01-23 21:34 | NUR ---
SCHEDULED MEDICATION ROCEPHIN GIVEN AND TOLERATED WELL. PT CONTINUES TO C/O INCREASED HEADACHE AND REQUESTING HER PERCOCET- MEDICATION GIVEN AND TOLERATED WELL. NO S/S OF RESPIRATORY DISTRESS OR DISCOMFORT NOTED AT THIS TIME. WILL CONTINUE TO MONITOR.
--- NOTE | 2019-01-23 23:00 | NUR ---
PT SLEEPING AT THIS TIME. NO S/S OF RESPIRATORY DISTRESS OR DISCOMFORT NOTED AT THIS TIME. WILL CONTINUE TO MONITOR.
[2019-01-24] VITALS: BP 105/57
--- NOTE | 2019-01-24 | NUR ---
VITAL SIGNS TAKEN AND TOLERATED WELL. NO S/S OF RESPIRATORY DISTRESS OR DISCOMFORT NOTED AT THIS TIME. WILL CONTINUE TO MONITOR.
--- NOTE | 2019-01-24 02:00 | NUR ---
PT SLEEPING IN BED. NO S/S OF RESPIRATORY DISTRESS OR DISCOMFORT NOTED AT THIS TIME. WILL CONTINUE TO MONITOR.
[2019-01-24] MEDS: oxyCODONE/APAP 5/325 MG 1 TAB TAB PO PRN ×3 (03:57→17:26)
--- NOTE | 2019-01-24 03:57 | NUR ---
PT C/O PAIN 5/10 AND REQUESTING PERCOCET. PAIN MEDICATION GIVEN AND TOLERATED WELL. NO S/S OF RESPIRATORY DISTRESS OR DISCOMFORT NOTED AT THIS TIME. WILL CONTINUE TO MONITOR.
--- NOTE | 2019-01-24 04:00 | NUR ---
PT SLEEPING IN BED. NO S/S OF RESPIRATORY DISTRESS OR DISCOMFORT NOTED AT THIS TIME. WILL CONTINUE TO MONITOR.
--- NOTE | 2019-01-24 06:15 | NUR ---
DR. ANA PAULA BARROS IN TO SEE PT.
[2019-01-24 06:29] LABS: BASOPHILS % (AUTO) 0.3 % (0.0-2.0); CARBON DIOXIDE 28.7 mmol/L (21-32); CREATININE 0.7 mg/dL (0.6-1.3); EOSINOPHILS # (AUTO) 0.3 K/uL (0-0.4); EOSINOPHILS % (AUTO) 6.2 % (0.0-4.0); HEMATOCRIT 29.9 % (36-48); HEMOGLOBIN 9.5 g/dL (12.0-16.0); LYMPHOCYTES # (AUTO) 1.5 K/uL (2.5-16.5); LYMPHOCYTES % (AUTO) 34.8 % (20.5-51.1); MEAN CORPUSCULAR HEMOGLOBIN 26 pg (27-31); MEAN CORPUSCULAR HGB CONC 32 g/dL (33-37); MEAN CORPUSCULAR VOLUME 80.2 fL (80-94); MONOCYTES # (AUTO) 0.4 K/uL (0.8-1.0); MONOCYTES % (AUTO) 8.4 % (1.7-9.3); NEUTROPHILS # (AUTO) 2.2 K/uL (1.8-7.7); NEUTROPHILS % (AUTO) 50.3 % (42.2-75.2); PLATELET COUNT (AUTO) 194 K/uL (140-450); POTASSIUM 3.7 mmol/L (3.5-5.1); RED BLOOD CELL COUNT(AUTO) 3.73 MIL/uL (4.20-5.40); RED CELL DISTRIBUTION WIDTH 20.7 % (11.6-13.7); WHITE BLOOD COUNT (AUTO) 4.4 K/uL (4.8-10.8)
[2019-01-24] MEDS: METOCLOPRAMIDE 10 MG TAB PO SCH ×3 (06:32→17:26)
--- NOTE | 2019-01-24 06:32 | NUR ---
SCHEDULED MEDICATION REGLAN GIVEN AND TOLERATED WELL. NO S/S OF RESPIRATORY DISTRESS OR DISCOMFORT NOTED AT THIS TIME. WILL CONTINUE TO MONITOR.
[2019-01-24 06:47] LABS: MAGNESIUM 1.7 mg/dL (1.8-2.4); PHOSPHORUS 4.7 mg/dL (2.5-4.9)
[2019-01-24] MEDS: ALBUTEROL SULFATE/IPRATROPIU 3 ML SOL IH SCH (07:01)
--- NOTE | 2019-01-24 07:19 | NUR ---
ENDORSED PT CARE TO DAY SHIFT NURSE CASI FOR CONTINUITY OF CARE.
[2019-01-24] MEDS ORDERED: ALBUTEROL SULFATE/IPRATROPIU 3 ML SOL IH SCH (07:20)
[2019-01-24] MEDS ORDERED: ALBUTEROL SULFATE/IPRATROPIU 3 ML SOL IH PRN (07:20)
--- NOTE | 2019-01-24 07:26 | NUR ---
RECEIVED REPORT FROM MAINTENANCE MECHANIC TECHNICIAN RN AT BEDSIDE. PATIENT ON ROOM AIR, PULSE OX SAT 98%. AAOX4. PT HAS SCAB ON NOSE. CONTRACTURES TO BUE. NO SOB NOTED AT THIS TIME. NO RESPIRATORY DISTRESS NOTED. WILL CONTINUE TO MONITOR.
[2019-01-24 08:00] VITALS: BP 125/66
--- NOTE | 2019-01-24 09:36 | NUR ---
ADMINISTERED MORNING MEDS TO PT. PT TOLERATED THEM WELL. NO SIGNS OF DISTRESS NOTED. PERCOCET GIVEN FOR PAIN. ALL OTHER NEEDS MET. BED IN LOWEST POSITION, CALL LIGHT WITHIN REACH.
[2019-01-24] MEDS ORDERED: ATOR10TA PO (09:56)
[2019-01-24] MEDS ORDERED: MAG SULF 2000 MG/WATER PREMIX 50 ML IV SCH (10:00)
[2019-01-24] MEDS: DOCUSATE SODIUM 100 MG GELCAP PO SCH (10:08)
[2019-01-24] MEDS: SPIRONOLACTONE 25 MG TAB PO SCH (10:08)
[2019-01-24] MEDS: GABAPENTIN 100 MG CAP PO SCH (10:08)
[2019-01-24] MEDS: FERROUS SULFATE 325 MG TABEC PO SCH (10:09)
[2019-01-24] MEDS: POTASSIUM CHLORIDE 8 MEQ TABER PO SCH (10:09)
[2019-01-24] MEDS: busPIRone 5 MG TAB PO SCH (10:09)
[2019-01-24] MEDS: LACTOBACILLUS RHAMNOSUS GG 1 EACH CAP PO SCH (10:09)
[2019-01-24] MEDS: ASCORBIC ACID 500 MG TAB PO SCH (10:09)
[2019-01-24] MEDS: LORazepam 1 MG TAB PO SCH (10:11)
[2019-01-24] MEDS: OXcarbazepine 150 MG TAB PO SCH (10:11)
[2019-01-24] MEDS: POLYETHYLENE GLYCOL 17 GM/PKT PO SCH (10:12)
[2019-01-24] MEDS: SENNA 8.6 MG TAB PO SCH (10:14)
--- NOTE | 2019-01-24 12:51 | NUR ---
PT RESTING IN BED. ALL NEEDS CURRENTLY MET. WILL ROUND FREQUENTLY ON PT. BED IN LOWEST POSITION, CALL LIGHT WITHIN REACH.
--- NOTE | 2019-01-24 13:19 | NUR ---
CM SPOKE WITH HEIDI ( SECURITY SYSTEMS SPECIALIST @ [facility]) @ [phone]. PATIENT IS ACCEPTED AND ROOM NUMBER IS 12B. TRANSPORTATION HAS BEEN SETUP WITH [facility] [facility] @ [phone] CLEANING CREW MEMBER TIME IS AT 6-6:30PM. INSURANCE WOULD NOT COVER TRANSPORTATION PATIENT IS NOT DISCHARGING BACK WITH SKILLED NEED. FAMILY UNABLE TO PAY FOR THE TRANSPORTATION.
--- NOTE | 2019-01-24 14:08 | NUR ---
PLACED PT ON SBT MODE PEEP 5 PS 10 FIO2 24% RN LAILA NOTIFIED
--- NOTE | 2019-01-24 14:48 | NUR ---
PT RESTING IN BED. NO COMPLAINTS OF PAIN OR DISTRESS. WILL ROUND FREQUENTLY ON PT.
--- NOTE | 2019-01-24 16:37 | NUR ---
PT WATCHING TV IN BED. NO COMPLAINTS OF PAIN AT THIS TIME. WILL ROUND FREQUENTLY ON PT.
--- NOTE | 2019-01-24 18:45 | NUR ---
PT DISCHARGED BACK TO [facility]. CALLED AND GAVE REPORT TO BRITTANY HOPPER. PT DISCHARGE PAPERWORK EXPLAINED AND SIGNED BY PT. PICC LINE REMOVED WITH TIP INTACT. MINIMAL BLEEDING AT SITE. PT WRIST BAND REMOVED AND PLACED IN SHRED BIN. ALL PERSONAL BELONGINGS TAKEN WITH PT. PT LEFT IN STABLE CONDITION ACCOMPANIED BY TRANSPORT TEAM.
== END 2019-01-24 18:45 | DRG 252 ==
LOC: MED 15:08 → MTU 18:07
PROVIDERS: ADMIT General Practice; ATTEND General Practice
DX: K94.03 Colostomy malfunction (principal); E44.0 Moderate protein-calorie malnutrition; E11.40 Type 2 diabetes mellitus with diabetic neuropathy, unspecified; K56.699 Other intestinal obstruction unspecified as to partial versus complete obstruction; E83.42 Hypomagnesemia; F20.9 Schizophrenia, unspecified; I48.91 Unspecified atrial fibrillation; D50.9 Iron deficiency anemia, unspecified; E11.9 Type 2 diabetes mellitus without complications; G40.909 Epilepsy, unspecified, not intractable, without status epilepticus; E66.9 Obesity, unspecified; N39.0 Urinary tract infection, site not specified; I10 Essential (primary) hypertension; J44.9 Chronic obstructive pulmonary disease, unspecified; G89.4 Chronic pain syndrome; M19.90 Unspecified osteoarthritis, unspecified site; E78.5 Hyperlipidemia, unspecified; F41.1 Generalized anxiety disorder; Z68.29 Body mass index [BMI] 29.0-29.9, adult; Z88.6 Allergy status to analgesic agent; Z88.8 Allergy status to other drugs, medicaments and biological substances; Z86.73 Personal history of transient ischemic attack (TIA), and cerebral infarction without residual deficits; Z90.710 Acquired absence of both cervix and uterus; Z79.899 Other long term (current) drug therapy; Z82.49 Family history of ischemic heart disease and other diseases of the circulatory system
CPT/HCPCS: 36415; 71045; 80048; 80053; 80305; 81001; 82150; 82948; 83036; 83690; 83735; 83880; 84100; 84439; 84443; 84484; 85025; 85610; 85730; 87081; 87086; 87186; 93005; 94640; 96361; 96374; 99285; J0696; J1644; J2270; J3475; J7030; J7060; J7620; J8597; Q0092; Q9967